=== PATIENT | female | born 1980 | race Caucasian/White ===

== ENCOUNTER 2022-11-04 11:58 | Outpatient (CLI) | payer MEDICAID, SELFPAY ==
[2022-11-04 16:08] LABS: Chloride* 115 mmol/L (96-114)
[2022-11-04 16:09] LABS: Sodium* 142 mmol/L (135-149)
[2022-11-04 16:11] LABS: Cholesterol* 250 mg/dL (90-199); Creatinine* 1.6 mg/dL (0.5-1.5); Estimated Glomerular Filt Rate 42 ml/min
[2022-11-04 16:12] LABS: Alanine Aminotransferase* 20 U/L (4-35); Blood Urea Nitrogen* 18 mg/dL (5-24); Calcium* 9.2 mg/dL (8.4-10.6); Carbon Dioxide* 17 mmol/L (20-32); Glucose* 97 mg/dL (60-115); HDL Cholesterol* 65 mg/dL (>=50); LDL Cholesterol Calculated 156 mg/dL (<100); Triglycerides* 145 mg/dL (40-149)
== END 2022-11-04 11:59 | disposition home or self-care (01) ==
PROVIDERS: PCP Family Medicine; Visit Provider Family Medicine
DX: I10 Essential (primary) hypertension (principal); E55.9 Vitamin D deficiency, unspecified
CPT/HCPCS: 80048; 80061; 84460

== ENCOUNTER 2023-07-20 12:42 | Outpatient (CLI) | payer MEDICAID, SELFPAY | END 2023-07-20 12:43 | disposition home or self-care (01) | LOC: AMB 07-23 10:17 | PROVIDERS: PCP Family Medicine; Visit Provider Family Medicine | DX: M54.50 Low back pain, unspecified (principal) | CPT/HCPCS: A0425; A0427 ==

== ENCOUNTER 2023-07-20 13:09 | Emergency (ER) | payer MEDICAID, SELFPAY ==
[2023-07-20 13:13] VITALS: BP 144/101; PULSE 65; RESP 18; TEMP 36.2; O2SAT 98; BMI 37.4
[2023-07-20 13:15] VITALS: BP 159/92; PULSE 82; RESP 16; O2SAT 98
[2023-07-20 13:30] VITALS: BP 137/86; PULSE 58; RESP 16; O2SAT 98
[2023-07-20] MEDS: KETOROLAC 15 MG/ML inj IVP (14:03)
[2023-07-20] MEDS: MORPHINE 4 MG/ML INJ IVP (14:03)
[2023-07-20 14:30] VITALS: BP 149/81; PULSE 61; RESP 16; O2SAT 98
--- NOTE | 2023-07-20 15:11 | CRLHL7_ITS ---
For Patients: As a result of the Century Cures Act, medical imaging exams and procedure reports are released immediately into your electronic medical record. You may view this report before your referring provider. If you have questions, please contact your health care provider. INDICATION: Low back pain. Left saddle anesthesia. TECHNIQUE : Lumbar spine MRI without contrast. The following sequences were obtained: Sagittal T1, T2 weighted and STIR sequences. Axial T1 and T2 weighted sequences. COMPARISON: Lumbar spine MRI from 08/28/2014. FINDINGS : Five lumbar type vertebral bodies, with the last fully formed disc space designated as L5-S1. Normal lumbar lordotic curve. No recent compression fracture or marrow replacing process. Lower cord/conus signal is normal. The conus terminates at a normal location. No intradural lesion. Polycystic kidneys. Discs/Endplates: At L5-S1, disc dehydration. Remaining discs exhibit normal height and hydration signal. Findings at individual levels as follows: T11-12: No spinal canal or neural foraminal stenosis. T12-L1: No spinal canal or neural foraminal stenosis. L1-2: No spinal canal or neural foraminal stenosis. L2-3: No spinal canal or neural foraminal stenosis. L3-4: No spinal canal or neural foraminal stenosis. L4-5: Bilateral facet arthrosis. No spinal canal or neural foraminal stenosis. L5-S1: 5 millimeter left subarticular disc protrusion minimally contacts the traversing left S1 nerve root. No spinal canal or neural foraminal stenosis. Imaged SI joints: Within normal limits. Imaged sacrum: Within normal limits. IMPRESSION: 1. Shallow left subarticular protrusion minimally contacts the traversing left S1 nerve root. Slightly decreased in size compared to 2013. 2. No spinal canal/neural foraminal stenosis or neural impingement elsewhere. 3. Facet arthrosis at L4-5 bilaterally. Slightly progressed since 2013. Dictated by Romero Brothers MD @ 07/20/2023 6:02:56 PM (Electronically Signed)
[2023-07-20] MEDS: KETOROLAC 10 MG TABLET PO (15:26)
--- NOTE | 2023-07-20 16:17 | ED.GENADULT ---
HPI - General Adult General Date Seen: 07/20/23 Chief complaint: Back Injury/Pain Stated complaint: Back pain Time Seen by Provider: 07/20/23 13:22 Source: patient Mode of arrival: EMS Limitations: no limitations History of Present Illness HPI narrative: Patient is a 42-year-old female presenting to the emergency department for low back pain. She has history of chronic pain and has a pain contract. She says she took multiple oxycodone today after she hurt her back. 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 She does the pain is mostly on the left side and radiates down to her left gluteal region. She still admits to some mild numbness to the left gluteal region. Patient states that she has history of sciatica but the pain has not been this bad before. Ago oxycodone has not helped and she took it about an hour prior to arrival. States at baseline she needs to walk with a walker to to her chronic pain. She urinated prior to arrival and states she felt like she empties her bladder. Denies incontinence of bladder or bowels. Denies fevers, chills, chest pain, shortness of breath. Related Data Previous Rx's Medication Instructions Recorded albuterol sulfate 90 mcg/actuation 2 puff inhalation Q4H PRN 07/01/22 aerosol inhaler (ProAir HFA) shortness of breath or wheezing #8.5 grams cholecalciferol (vitamin D3) 25 25 mcg PO QDAY #90 caps 07/01/22 mcg (1,000 unit) capsule ondansetron 4 mg disintegrating 4 mg PO Q6-8H PRN nausea and 07/01/22 tablet vomiting #30 tabs polyethylene glycol 3350 17 gram 17 g PO QDAY #100 ea 07/01/22 oral powder packet (Miralax) incontinence pad, liner, disp #48 ea 07/15/22 (Poise Pantiliners pads) duloxetine 30 mg capsule,delayed 30 mg PO QDAY #14 caps 11/04/22 release (Cymbalta) duloxetine 60 mg capsule,delayed 60 mg PO QDAY #30 caps 11/04/22 release (Cymbalta) acetazolamide 250 mg tablet 500 mg (2 x 250 mg) PO BID #180 05/22/23 tabs clotrimazole-betamethasone 1 1 applic topical BID #45 grams 03/21/23 %-0.05 % topical cream incontinence pad, liner, disp #132 ea 03/21/23 (Prevail Pads) miconazole nitrate 2 % topical 1 spray topical BID #133 grams 03/21/23 spray powder (Lotrimin AF Powder) diaper,brief,adult,disposable #64 ea 06/16/23 (Prevail Adjustable Underwear Large) hydroxyzine HCl 50 mg tablet 25 - 50 mg (0.5 - 1 x 50 mg) PO 06/16/23 TID PRN anxiety #60 tabs oxycodone 10 mg tablet 10 mg PO QID PRN pain #120 tabs 07/10/23 estradiol 1 mg tablet 1 mg PO QDAY #90 tabs 07/18/23 lisinopril 20 mg tablet 20 mg PO QDAY #90 tabs 07/18/23 propranolol 80 mg capsule,24 80 mg PO QDAY #30 caps 07/18/23 hr,extended release Allergies Allergy/AdvReac Type Severity Reaction Status Date / Time ibuprofen Allergy Mild Verified 03/21/23 11:16 Review of Systems Narrative: Negative unless stated in the [facility] Medical History Essential tremor ?G25.0 - Essential tremor (ICD-10) Candidal intertrigo ?B37.2 - Candidiasis of skin and nail (ICD-10) Mild intermittent asthma ?J45.20 - Mild intermittent asthma, uncomplicated (ICD-10) Chronic constipation ?K59.09 - Other constipation (ICD-10) Vitamin D deficiency ?E55.9 - Vitamin D deficiency, unspecified (ICD-10) Polycystic kidney, unspecified ?Q61.3 - Polycystic kidney, unspecified (ICD-10) Essential (primary) hypertension ?I10 - Essential (primary) hypertension (ICD-10) Major depressive disorder, single episode, unspecified ?F32.9 - Major depressive disorder, single episode, unspecified (ICD-10) Anxiety disorder, unspecified ?F41.9 - Anxiety disorder, unspecified (ICD-10) Crohn disease ?K50.90 - Crohn's disease, unspecified, without complications (ICD-10) IIH (idiopathic intracranial hypertension) ?G93.2 - Benign intracranial hypertension (ICD-10) Solitary pulmonary nodule ?R91.1 - Solitary pulmonary nodule (ICD-10) Endometriosis, unspecified ?N80.9 - Endometriosis, unspecified (ICD-10) Chronic pain syndrome ?G89.4 - Chronic pain syndrome (ICD-10) Surgical History History of hysterectomy ?Z90.710 - Acquired absence of both cervix and uterus (ICD-10) Family History Father Kidney disease Stroke Heart disease Social History Smoking Status: Current every day smoker Little interest or pleasure in doing things: nearly every day Feeling down, depressed, or hopeless: nearly every day Exam Narrative: Exam Narrative: Const: Well-nourished, Well-developed, in moderate distress Eyes: PERRL, no conjunctival injection, and symmetrical lids HENT: Atraumatic external nose and ears. Moist mucous membranes. Neck: Symmetric, trachea midline, No thyromegaly. CVS: RRR, No murmurs or gallops. Peripheral pulses 2+ and equal in all extremities RESP: Unlabored respiratory effort. Clear to auscultation bilaterally. GI: Nontender/Nondistended, No rebound or guarding. No CVA tenderness MSK:Extremities w/o deformity, Normal Active ROM, tenderness palpation left paraspinal muscles and that is when the region of L3-L4. Positive straight leg test bilaterally Skin: Warm, Dry. No rashes or lesions. Neuro: Normal Muscle tone, No focal neurological deficits. Psych: Awake, Alert, & Oriented x3. Appropriate mood and affect. Const: Vital Signs, click to edit/add: Vital Signs - 24 hr 07/20/23 13:13 07/20/23 13:15 07/20/23 13:30 Temperature 97.2 F L Pulse Rate [Right Pulse Oximeter] 65 82 58 L Respiratory Rate 18 16 16 Blood Pressure [Ri ght Upper Arm] 144/101 H 159/92 H 137/86 Pulse Oximetry 98 98 98 Oxygen Delivery Me thod Room Air Room Air Room Air 07/20/23 14:30 Temperature Pulse Rate [Right Pulse Oximeter] 61 Respiratory Rate 16 Blood Pressure [Ri ght Upper Arm] 149/81 H Pulse Oximetry 98 Oxygen Delivery Me thod Room Air Course Vital Signs Vital signs: Initial Vital Signs Temperature 97.2 F L 07/20/23 13:13 Temperature Source Temporal Artery Scan 07/20/23 13:13 Pulse Rate 65 07/20/23 13:13 Respiratory Rate 18 07/20/23 13:13 Blood Pressure 144/101 H 07/20/23 13:13 Blood Pressure Mean 115 H 07/20/23 13:13 Blood Pressure Position Sitting 07/20/23 13:13 Pulse Oximetry 98 07/20/23 13:13 Oxygen Delivery Method Room Air 07/20/23 13:13 Vital Signs Temperature 97.2 F L 07/20/23 13:13 Pulse Rate 65 07/20/23 13:13 Respiratory Rate 18 07/20/23 13:13 Blood Pressure 144/101 H 07/20/23 13:13 Pulse Oximetry 98 07/20/23 13:13 Oxygen Delivery Method Room Air 07/20/23 13:13 Temperature 97.2 F L 07/20/23 13:13 Pulse Rate 61 07/20/23 14:30 Respiratory Rate 16 07/20/23 14:30 Blood Pressure 149/81 H 07/20/23 14:30 Pulse Oximetry 98 07/20/23 14:30 Oxygen Delivery Method Room Air 07/20/23 14:[address] [facility] Narrative Medical decision making narrative: Patient is a 42-year-old female presenting to emergency department for low back pain. She says the pain started suddenly after she bent over. She states she heard a pop in her back. She has been unable to handle the pain at home even after taking dose of her home oxycodone. Patient states she needs her pain controlled in every cannot treat her she needs to be transferred somewhere that can. She is on a pain contract but she does not look to be in a large amount of pain started give her a dose of morphine and Toradol. She states this did not help her symptoms at all and she still in severe pain in me needs something more for it. I then gave her dose of oral Toradol. Considering how much pain as she claims to be in we are able to get an MRI of her lumbar spine. Before the MRI was done I spoke to the patient again and she states she is not being treated appropriately and she needs her pain treated. I informed able to medicine your be gave her and then she has told me that she did not come in asking for the pain medicine even though she specifically said she needed her pain treated. She will be given another dose of oxycodone 10 mg consistent with her home dose as she is due for another dose. The MRI of her lumbar spine returned showing mild arthrosis of L4-L5 and a mild protrusion of the disc at L5-L1. Her pain is more in the upper back and is not consistent with the symptoms. Rest of the lumbar spine is within normal limits. A cannot specifically say was causing the patient's pain but is clearly not guided plana and the rest of her symptoms are not consistent with the findings and the MRI. She does have paraspinal tenderness most likely she pulled a muscle considering she is very tender to palpation in the paraspinal region. Nursing staff is noted she has transferred independently from the bed to the commode and to the MRI scanner without needing any help. She does have a lift chair at home. Patient was again asking why she is not being transferred to another hospital that would take care of her. I explained to her that her imaging findings show nothing that is transferrable. Considering the pain radiates down her leg and is tender to palpation a kidney stone is unlikely. Also the pain started as soon as she bent over which makes it even more likely it is musculoskeletal in origin. She has hypertension but otherwise no other risk factors for a AAA and her vitals are stable. I do not believe a CT scan is necessary at this time. Patient will be discharged home. Imaging Data MRI lumbar spine: Radiologist's impression: INDICATION: Low back pain. Left saddle anesthesia. TECHNIQUE : Lumbar spine MRI without contrast. The following sequences were obtained: Sagittal T1, T2 weighted and STIR sequences. Axial T1 and T2 weighted sequences. COMPARISON: Lumbar spine MRI from 08/28/2014. FINDINGS : Five lumbar type vertebral bodies, with the last fully formed disc space designated as L5-S1. Normal lumbar lordotic curve. No recent compression fracture or marrow replacing process. Lower cord/conus signal is normal. The conus terminates at a normal location. No intradural lesion. Polycystic kidneys. Discs/Endplates: At L5-S1, disc dehydration. Remaining discs exhibit normal height and hydration signal. Findings at individual levels as follows: T11-12: No spinal canal or neural foraminal stenosis. T12-L1: No spinal canal or neural foraminal stenosis. L1-2: No spinal canal or neural foraminal stenosis. L2-3: No spinal canal or neural foraminal stenosis. L3-4: No spinal canal or neural foraminal stenosis. L4-5: Bilateral facet arthrosis. No spinal canal or neural foraminal stenosis. L5-S1: 5 millimeter left subarticular disc protrusion minimally contacts the traversing left S1 nerve root. No spinal canal or neural foraminal stenosis. Imaged SI joints: Within normal limits. Imaged sacrum: Within normal limits. IMPRESSION: 1. Shallow left subarticular protrusion minimally contacts the traversing left S1 nerve root. Slightly decreased in size compared to 2014. 2. No spinal canal/neural foraminal stenosis or neural impingement elsewhere. 3. Facet arthrosis at L4-5 bilaterally. Slightly progressed since 2013. Dictated by Romero Brothers MD @ 07/20/2023 6:02:56 PM Discharge Plan Discharge Clinical Impression: Back pain Qualifiers: Back pain location: low back pain Chronicity: acute Back pain laterality: left Sciatica presence: with sciatica Sciatica laterality: sciatica of left side Qualified Code(s): M54.42 - Lumbago with sciatica, left side Patient Disposition: Home, Self-Care Condition: Stable Instructions: Back Pain (ED) Additional Instructions: Follow-up with the primary care provider. Return for new or worsening symptoms Activity Level: No Restrictions Discharge Diet: Regular Prescriptions: No Action cholecalciferol (vitamin D3) 25 mcg (1,000 unit) capsule 25 mcg PO QDAY Qty: 90 3RF polyethylene glycol 3350 [Miralax] 17 gram powder in packet 17 g PO QDAY Qty: 100 3RF albuterol sulfate [ProAir HFA] 90 mcg/actuation HFA aerosol inhaler 2 puff inhalation Q4H PRN (Reason: shortness of breath or wheezing) Qty: 8.5 5RF ondansetron 4 mg tablet,disintegrating 4 mg PO Q6-8H PRN (Reason: nausea and vomiting) Qty: 30 5RF (DME) Prevail Pads Pad See Rx Instructions .Route Qty: 132 5RF Rx Instructions: As directed clotrimazole-betamethasone 1-0.05 % cream 1 applic topical BID Qty: 45 1RF miconazole nitrate [Lotrimin AF Powder] 2 % aerosol powder 1 spray topical BID Qty: 133 5RF duloxetine [Cymbalta] 30 mg capsule,delayed release(DR/EC) 30 mg PO QDAY Qty: 14 0RF duloxetine [Cymbalta] 60 mg capsule,delayed release(DR/EC) 60 mg PO QDAY Qty: 30 0RF (DME) Poise Pantiliners Pad See Rx Instructions .Route Qty: 48 1RF Rx Instructions: As directed acetazolamide 250 mg tablet 500 mg PO BID Qty: 180 3RF hydroxyzine HCl 50 mg tablet 25 - 50 mg PO TID PRN (Reason: anxiety) Qty: 60 1RF (DME) Prevail Adjust Underwear Large Misc See Rx Instructions .Route Qty: 64 5RF Rx Instructions: As directed oxycodone 10 mg tablet 10 mg PO QID MDD 4 PRN (Reason: pain) Qty: 120 0RF lisinopril 20 mg tablet 20 mg PO QDAY Qty: 90 0RF propranolol 80 mg capsule,extended release 24hr 80 mg PO QDAY Qty: 30 2RF estradiol 1 mg tablet 1 mg PO QDAY Qty: 90 0RF Follow Up/Referrals: Calixto Han MD [Primary Care Provider] - Stand Alone Forms: [facility] Info Instructions
[2023-07-20] MEDS: OXYCODONE 5 MG TABLET 10 MG PO (18:00)
--- NOTE | 2023-07-20 18:11 | ED.NURSE ---
Pt upset over care in the ER. States to this nurse that she did not receive the pain medication that she would have liked to have received.
--- NOTE | 2023-07-20 18:12 | ED.NURSE ---
Pt given patient advocate number to contact them on Monday. Pt appreciative of patient advocate number.
--- NOTE | 2023-07-20 18:29 | ED.NURSE ---
Upon discharge, pt wanted everyone's names down on a piece of paper that took care of her today. She states she was not treated humanely and made to feel like a drug seeker. Pt requesting a copy of her MRI results on a disk, copy being made by Imaging and will be given to pt before she leaves.
--- NOTE | 2023-07-20 18:40 | ED.NURSE ---
Pt was upset with nursing staff and demanded to know why there was a camera in the room. It was explained in detail that camera was only for behavorial health patients and that the camera has not been turned on in her room and nothing has been recorded. Pt okay with explanation and has nothing more for this nurse at this time. Pt calling for a ride home.
--- NOTE | 2023-07-20 18:43 | ED.NURSE ---
Pt has called a friend and has a ride home. Pt has requested that she be helped into a wheelchair and given a ride in the wheelchair, out to the lobby to wait for her ride. Pt helped into chair and taken outside in wheelchair.
== END 2023-07-20 18:48 | disposition home or self-care (01) ==
PROVIDERS: Emergency Provider Student in an Organized Health Care Education/Training Program; PCP Family Medicine
DX: M54.42 Lumbago with sciatica, left side (principal)
CPT/HCPCS: 72148; 96374; 96375; 99283; 99284; A9270; J1885; J2270

== ENCOUNTER 2023-11-07 13:52 | Outpatient (CLI) | payer MEDICAID, SELFPAY | END 2023-11-07 13:53 | disposition home or self-care (01) | PROVIDERS: PCP Family Medicine; Visit Provider Family Medicine | DX: I10 Essential (primary) hypertension (principal); Z13.220 Encounter for screening for lipoid disorders | CPT/HCPCS: 80048; 80061 ==

== ENCOUNTER 2024-01-25 17:39 | Outpatient (REF) | payer MEDICAID, SELFPAY ==
--- OUTSIDE RECORDS SUMMARY | 2024-01-25 17:41 | XMS_ITS | Encounter Summary ---
Author Name Unknown Organization [facility] Address [address] [place] [phone] Phone Care Team Providers Care Screener And Blender Name Role Phone Calixto Han MD Primary Care Provider Unavail able Encounter Details Date Type Department Care Team (Late st Contact Info) Description 01/01/2024 [facility] [address] [place] [address] Taylor Torres RN Social History Tobacco Use Types Packs/Day Years Used Date Smoking Tobacco: Every Day Cigarettes Smokeless Tobacco: Never Alcohol Use Standard Drinks/Week Comments Not Currently 0 (1 standard drink = 0.6 oz pur e alcohol) Sex and Gender Information Value Date Recorded Sex Assigned at Not on file Gender Identity Not on file Sexual Orientation Not on file documented as of this encounter Miscellaneous Notes * Telephone Encounter - Taylor Torres RN - 01/01/2024 2:45 PM CDT Left message for pt to call back to review results and recommendations. * Telephone Encounter - Taylor Torres RN - 01/01/2024 2:45 PM CDT ----- Message from Mk Mccracken MD sent at 12/27/2023 2:50 PM CDT ----- 1. Cr is stable ~1.7. 2. She is fe def, but not anemic. Suggest IV Feraheme 510 x 2 or Venofer 300 x 3, depending on insurance. 3. CO2 is low and K is ok. Repeat BMP in 2 wks. documented in this encounter Plan of Treatment Upcoming Encounters Date Type Department Care Team (Late st Contact Info) Description 04/04/2024 10:30 AM MDT Office Visit [facility] [address] [facility] [address] [place], [place] [id number] Mk Mccracken MD [address] [facility] [address] [place], [place] [id number] documented as of this encounter Visit Diagnoses Not on filedocumented in this encounter Care Teams Screener And Blender Relationship Specialty Start Date End Date Calixto Han MD PCP - General 05/08/20 documented as of this encounter
--- OUTSIDE RECORDS SUMMARY | 2024-01-25 17:41 | XMS_ITS | Clinical Summary ---
Author Name Unknown Organization [facility] Address [address] [place] [phone] Phone Care Team Providers Care Riffler Tender Name Role Phone Calixto Han MD Primary Care Provider Unavail able Allergies Active Allergy Reactions Criticality Noted Date Comments Ibuprofen Other (see comments) High 05/08/2020 Kidney disease Medications Medication Sig Dispensed Refills Start Date End Date Status acetaZOLAMIDE (DIAMOX) 250 MG tablet Take 500 mg by mouth 2 (two) times a day Active estradiol (ESTRACE) 1 MG tablet Take 1 mg by mouth 1 (one) time each day Active UNABLE TO FIND Med Name: Medical cannabis Active ondansetron (ZOFRAN) 4 MG tablet Take by mouth every 6 (six) hours if needed for nausea or vomiting Active oxyCODONE (ROXICODONE) 10 MG immediate release tablet Take 10 mg by mouth in the morning and 10 mg at noon and 10 mg in the evening and 10 mg before bedtime. Active hydrOXYzine (ATARAX) 50 MG tablet Take 25-50 mg by mouth every 8 (eight) hours if needed for anxiety 11/28/2023 Active cholecalciferol (VITAMIN D-3) 25 MCG (1000 UT) tablet Take 1,000 Units by mouth 1 (one) time each day 11/24/2023 Active polyethylene glycol (GLYCOLAX) 17 GM/SCOOP powder Take 17 g by mouth 1 (one) time each day 11/28/2023 Active propranolol LA (INDERAL LA) 80 MG 24 hr capsule Take 80 mg by mouth 1 (one) time each day 11/28/2023 Active lisinopril (PRINIVIL) 20 MG tablet Take 1 tablet (20 mg total) by mouth in the morning and 1 tablet (20 mg total) in the evening. 180 tablet 3 01/23/2024 01/22/2025 Active lisinopril (PRINIVIL,ZESTRIL ) 20 MG tablet Take 20 mg by mouth 1 (one) time each day 01/19/2024 Discontinued (Reorder) lisinopril (PRINIVIL) 20 MG tablet Take 1 tablet (20 mg total) by mouth in the morning and 1 tablet (20 mg total) in the evening. 180 tablet 3 01/23/2024 01/23/2024 Discontinued (Reorder) Active Problems Problem Noted Date Diagnosed Date Crohn's disease of both smal l and large intestine with complication 12/14/2023 Vitamin D deficiency 12/14/2023 Chronic kidney disease stage 3B 05/12/2020 Autosomal dominant polycystic kidney disease Essential hypertension 05/12/2020 Benign intracranial hypertension 05/12/2020 Anemia in chronic kidney disease 05/12/2020 Calculus of kidney and ureter 05/12/2020 Resolved Problems Problem Noted Date Diagnosed Date Resolved Date Crohn's disease 05/12/2020 12/14/2023 Encounters Date Type Department Care Team Description 01/19/2024 Refill [facility] [address] [place] [address] Dianna Lara, KHADIJAH 01/01/2024 Telephone [facility] [address] [place] [address] Taylor Torres, KHADIJAH 12/14/2023 Orders Only [facility] [address] [place] [address] Mk Mccracken MD from Last 3 Months Immunizations Name Administration Dates Next Due Influenza, Injectable, Quadr ivalent, Preservative Free 07/01/2013,07/06/2012,09/17/2010 Family History Medical History Relation Comments Autism spectrum disorder Daughter 1 Depression Daughter 1 Factor V deficiency Daughter 1 h/o PE Polycystic ovary syndrome Daughter 1 Autism spectrum disorder Daughter 2 per mot her Polycystic ovary syndrome Daughter 2 Arthritis Father COPD Father Depression Father Diabetes Father Drug abuse Father Early Father Hearing loss Father Heart disease Father Hypertension Father Kidney disease Father Kidney stone Father Polycystic kidney disease Father ESKD Stroke Father Vision loss Father Alcohol abuse Mother Arthritis Mother Hypertension Mother Alcohol abuse Sister 1 Depression Sister 1 Hypertension Sister 1 Multiple sclerosis Sister 1 Polycystic kidney disease, adult type Sister 1 Malignant neoplasm of brain Sister 2 Polycystic kidney disease Sister 2 ADD / ADHD Son Hearing loss Son Relation Status Comments Daughter 1 Alive Daughter 2 Alive Father Mother Alive Sister 1 Alive Sister 2 Alive Son Alive Social History Tobacco Use Types Packs/Day Years Used Date Smoking Tobacco: Every Day Cigarettes Smokeless Tobacco: Never Tobacco Cessation:Ready to Q uit: No; Counseling Given: Yes Alcohol Use Standard Drinks/Week Comments Not Currently 0 (1 standard drink = 0.6 oz pur e alcohol) Sex and Gender Information Value Date Recorded Sex Assigned at Not on file Gender Identity Not on file Sexual Orientation Not on file Last Filed Vital Signs Vital Sign Reading Time Taken Comments Blood Pressure 156/93 12/14/2023 9:13 AM OPTICAL SYSTEMS ENGINEER Pulse 57 12/14/2023 9:13 AM OPTICAL SYSTEMS ENGINEER Temperature 36.9 ??C (98.4 ??F) 12/14/2023 9:13 AM CS T Respiratory Rate - - Oxygen Saturation - - Inhaled Oxygen Concentration - - Weight 100 kg (221 lb 6.4 oz) 12/14/2023 9:13 AM OPTICAL SYSTEMS ENGINEER Height 167.6 cm (5' 6) 12/14/2023 9:13 AM OPTICAL SYSTEMS ENGINEER Body Mass Index 35.73 12/14/2023 9:13 AM OPTICAL SYSTEMS ENGINEER Plan of Treatment Upcoming Encounters Date Type Department Care Team (Late st Contact Info) Description 04/04/2024 10:30 AM MDT Office Visit [facility] [address] [facility] [address] [place], [place] [id number] Mk Mccracken MD [address] [facility] [address] [place], [place] [id number] Health Maintenance Due Date Last Done Comments Pneumococcal PPSV23 Highest Risk Adult (1 of 3 - PCV13) 2001 Influenza Vaccine (Season Ended) 2024 07/01/2013, 07/06/2012, 09/17/2010 Procedures Procedure Name Priority Date/Time Associated Diagnosis Comments TOTAL PROTEIN W/ CREATININE, URINE, RANDOM Routine 12/14/2023 9:49 AM OPTICAL SYSTEMS ENGINEER VITAMIN D, 25-HYDROXY, SERUM Routine 12/14/2023 9:49 AM OPTICAL SYSTEMS ENGINEER PTH INTACT W/O CALCIUM, SERUM Routine 12/14/2023 9:49 AM OPTICAL SYSTEMS ENGINEER FERRITIN, SERUM Routine 12/14/2023 9:49 AM OPTICAL SYSTEMS ENGINEER CBC (INCLUDES DIFFERENTIAL/PLATEL ETS) Routine 12/14/2023 9:49 AM OPTICAL SYSTEMS ENGINEER URINALYSIS, COMPLETE Routine 12/14/2023 9:49 AM OPTICAL SYSTEMS ENGINEER RENAL FUNCTION PANEL (RFP) Routine 12/14/2023 9:49 AM OPTICAL SYSTEMS ENGINEER IRON AND TIBC, SERUM Routine 12/14/2023 9:49 AM OPTICAL SYSTEMS ENGINEER URIC ACID, SERUM Routine 12/14/2023 9:49 AM OPTICAL SYSTEMS ENGINEER from Last 3 Months Results * Total Protein w/ Creatinine, Urine, Random (12/14/2023 9:49 AM OPTICAL SYSTEMS ENGINEER) Creatinine, Urine 56 20 - 275 mg/dL [facility]) Protein/Creatin ine, Urine 107 24 - 184 mg/g creat [facility] Protein/Creatin ine, Urine 0.107 0.024 - 0.184 mg/mg creat [facility] Protein, Urine 6 5 - 24 mg/dL [facility]) 12/14/2023 9:49 AM OPTICAL SYSTEMS ENGINEER 12/14/2023 9:50 AM OPTICAL SYSTEMS ENGINEER Narrative Resulting Agency Comment Performing Organization Information: ?Site ID: ?Name: [facility] ?Address: [address] [place] [phone] ?Director: Harshad Frias Mk Mccracken MD LAB URINE ORDERABLES [facility] * (ABNORMAL) Vitamin D, 25-Hydroxy, Serum (12/14/2023 9:49 AM OPTICAL SYSTEMS ENGINEER) Pathologist [facility] Calcidiol, Serum/Plasma 27(L) 30 - 100 ng/mL [facility]) Comment: Vitamin D Status ? 25-OH Vitamin D: Deficiency: ?<20 ng/mL Insufficiency: ? 20 - 29 ng/mL Optimal: ? > or = 30 ng/mL For 25-OH Vitamin D testing on patients on D2-supplementation and patients for whom quantitation of D2 and D3 fractions is required, the QuestAssureD(TM) 25-OH VIT D, (D2,D3), LC/MS/MS is recommended: order code 78492 (patients >2yrs). See Note 1 Note 1 For additional information, please refer to http://education.[employer]/faq/QOE031 (This link is being provided for informational/ educational purposes only.) 12/14/2023 9:49 AM OPTICAL SYSTEMS ENGINEER 12/14/2023 9:50 AM OPTICAL SYSTEMS ENGINEER Narrative Resulting Agency Comment Performing Organization Information: ?Site ID: ?Name: [facility]ortney Granado ?Address: [address] [place] [phone] ?Director: Harshad Frias Mk Mccracken MD LAB BLOOD ORDERABLES [facility] ([facility] * (ABNORMAL) CBC (includes Differential/Platelets) (12/14/2023 9:49 AM OPTICAL SYSTEMS ENGINEER) [facility] Leukocytes, Blood 7.5 3.8 - 10.8 Thousand/u L [facility]) Erythrocytes (RBC) 4.67 3.80 - 5.10 Million/uL [facility]) Hemoglobin (HGB) 13.0 11.7 - 15.5 g/dL [facility]) Hematocrit (HCT) 41.1 35.0 - 45.0 % [facility]) MCV 88.0 80.0 - 100.0 fL [facility]) MCH 27.8 27.0 - 33.0 pg [facility]) MCHC 31.6(L) 32.0 - 36.0 g/dL [facility]) Erythrocyte Distribution Width (RDW) 12.5 11.0 - 15.0 % [facility] Platelets, Blood 200 140 - 400 Thousand/u L [facility]) Platelet mean volume, Blood 12.5 7.5 - 12.5 fL [facility]) Neutrophils, Blood 4,073 1,500 - 7,800 cells/uL [facility]) Lymphocytes, Blood 2,685 850 - 3,900 cells/uL [facility]) Monocytes, Blood 413 200 - 950 cells/uL [facility]) Eosinophils, Blood 293 15 - 500 cells/uL [facility]) Basophils, Blood 38 0 - 200 cells/uL [facility]) Neutrophils/100 leukocytes, Blood 54.3 % [facility]) Lymphocytes/100 leukocytes, Blood 35.8 % [facility]) Monocytes/100 leukocytes, Blood 5.5 % [facility]) Eosinophils/100 leukocytes, Blood 3.9 % [facility]) Basophils/100 leukocytes, Blood 0.5 % [facility]) 12/14/2023 9:49 AM OPTICAL SYSTEMS ENGINEER 12/14/2023 9:50 AM OPTICAL SYSTEMS ENGINEER Narrative Resulting Agency Comment Performing Organization Information: ?Site ID: ?Name: [facility] ?Address: [address] [place] [address] [place] [address] ?Director: Harshad Frias Mk Mccracken MD LAB BLOOD ORDERABLES [facility] * Urinalysis, Complete (12/14/2023 9:49 AM OPTICAL SYSTEMS ENGINEER) Color of Urine YELLOW YELLOW [facility]) Appearance of Urine CLEAR CLEAR [facility]) Specific gravity of Urine 1.012 1.001 - 1.035 [facility]) pH of Urine 6.0 5.0 - 8.0 [facility]) Glucose, Urine NEGATIVE NEGATIVE [facility]) Bilirubin, total, Urine NEGATIVE NEGATIVE [facility]) Ketones, Urine NEGATIVE NEGATIVE [facility]) Hemoglobin, Urine NEGATIVE NEGATIVE [facility]) Protein, Urine NEGATIVE NEGATIVE [facility]) Nitrite, Urine NEGATIVE NEGATIVE [facility]) Leukocyte esterase, Urine NEGATIVE NEGATIVE [facility]) Leukocytes, Urine sediment NONE SEEN < OR = 5 /HPF [facility]) Erythrocytes, Urine sediment NONE SEEN < OR = 2 /HPF [facility]) Epithelial cells, squamous, Urine sediment NONE SEEN < OR = 5 /HPF [facility]) Bacteria, Urine sediment NONE SEEN NONE SEEN /HPF [facility]) Hyaline casts, Urine sediment NONE SEEN NONE SEEN /LPF [facility]) Service comment [facility] Comment: This urine was analyzed for the presence of WBC, RBC, bacteria, casts, and other formed elements. Only those elements seen were reported. 12/14/2023 9:49 AM OPTICAL SYSTEMS ENGINEER 12/14/2023 9:50 AM OPTICAL SYSTEMS ENGINEER Narrative Resulting Agency Comment Performing Organization Information: ?Site ID: ?Name: [facility] ?Address: [address] [place] [phone] ?Director: Harshad Frias Mk Mccracken MD LAB URINE ORDERABLES [facility] * (ABNORMAL) Renal Function Panel (RFP) (12/14/2023 9:49 AM OPTICAL SYSTEMS ENGINEER) Glucose, Serum/Plasma 85 65 - 99 mg/dL [facility] Comment: ? Fasting reference interval Urea nitrogen, Serum/Plasma (BUN) 26(H) 7 - 25 mg/dL [facility]) Creatinine, Serum/Plasma 1.69(H) 0.50 - 0.99 mg/dL [facility]) Estimated Glomerular Filtration Rate (eGFR) 39(L) > OR = 60 mL/min/1.7 3m2 [facility]) Urea nitrogen/Creati nine, Serum/Plasma 15 6 - 22 (calc) [facility] Sodium, Serum/Plasma 141 135 - 146 mmol/L [facility]) Potassium, Serum/Plasma 4.4 3.5 - 5.3 mmol/L [facility]) Chloride, Serum/Plasma 113(H) 98 - 110 mmol/L [facility]) Carbon dioxide CO2), total, Serum/Plasma 18(L) 20 - 32 mmol/L [facility]) Calcium, Serum/Plasma 9.3 8.6 - 10.2 mg/dL [facility]) Phosphate, Serum/Plasma 4.8(H) 2.5 - 4.5 mg/dL [facility]) Albumin, Serum/Plasma 4.5 3.6 - 5.1 g/dL [facility]) 12/14/2023 9:49 AM OPTICAL SYSTEMS ENGINEER 12/14/2023 9:50 AM OPTICAL SYSTEMS ENGINEER Narrative Resulting Agency Comment Performing Organization Information: ?Site ID: [id number] ?Name: [facility] ?Address: [address] [place] [address] [place] [address] ?Director: Harshad Frias Mk Mccracken MD LAB BLOOD ORDERABLES [facility]) * Uric Acid, Serum (12/14/2023 9:49 AM OPTICAL SYSTEMS ENGINEER) Urate, Serum/Plasma 5.1 2.5 - 7.0 mg/dL [facility]) Comment: Therapeutic target for gout patients: <6.0 mg/dL ?? 12/14/2023 9:49 AM OPTICAL SYSTEMS ENGINEER 12/14/2023 9:50 AM OPTICAL SYSTEMS ENGINEER Narrative Resulting Agency Comment Performing Organization Information: ?Site ID: [id number] ?Name: [facility] ?Address: [address] [place], [place] [address] [address] ?Director: Harshad Frias Mk Mccracken MD LAB BLOOD ORDERABLES Performing Organization Address City/[facility]/ZIP Co de Phone Number [facility]) * Ferritin, Serum (12/14/2023 9:49 AM OPTICAL SYSTEMS ENGINEER) Ferritin, Serum/Plasma 46 16 - 232 ng/mL [facility]) 12/14/2023 9:49 AM OPTICAL SYSTEMS ENGINEER 12/14/2023 9:50 AM OPTICAL SYSTEMS ENGINEER Narrative Resulting Agency Comment Performing Organization Information: ?Site ID: [id number] ?Name: [facility] ?Address: [address] [place] [address] [place] [address] ?Director: Harshad Frias Mk Mccracken MD LAB BLOOD ORDERABLES Performing Organization Address City/[facility]/ZIP Co de Phone Number [facility]) * (ABNORMAL) Iron and TIBC, Serum (12/14/2023 9:49 AM OPTICAL SYSTEMS ENGINEER) Iron, Serum/Plasma 45 40 - 190 mcg/dL [facility]) Iron binding capacity, Serum/Plasma 409 250 - 450 mcg/dL (calc) [facility]) Iron saturation, Serum/Plasma 11(L) 16 - 45 % (calc) [facility]) 12/14/2023 9:49 AM OPTICAL SYSTEMS ENGINEER 12/14/2023 9:50 AM OPTICAL SYSTEMS ENGINEER Narrative Resulting Agency Comment Performing Organization Information: ?Site ID: [id number] ?Name: [facility] ?Address: [address] [place] [address] ?Director: Harshad Frias Mk Mccracken MD LAB BLOOD ORDERABLES [facility] ([facility]) * PTH Intact w/o Calcium, Serum (12/14/2023 9:49 AM OPTICAL SYSTEMS ENGINEER) PTH, Intact, Serum/Plasma 57 16 - 77 pg/mL [facility] ([facility]) Comment: Interpretive Guide ?Intact PTH ? Calcium ? ------- Normal Parathyroid ?Normal ? Normal Hypoparathyroidism ?Low or Low Normal ?Low Hyperparathyroidism ?? Primary ?Normal or High ? High ?? Secondary ?High ? Normal or Low ?? Tertiary ? High ? High Non-Parathyroid ?? Hypercalcemia ?Low or Low Normal ?High 12/14/2023 9:49 AM OPTICAL SYSTEMS ENGINEER 12/14/2023 9:50 AM OPTICAL SYSTEMS ENGINEER Narrative Resulting Agency Comment Performing Organization Information: ?Site ID: [id number] ?Name: [facility] ?Address: [address] [place] [address] [place] [address] ?Director: Harshad Frias Mk Mccracken MD LAB BLOOD ORDERABLES [facility] ([facility]) from Last 3 Months Care Teams Riffler Tender Relationship Specialty Start Date End Date Calixto Han MD PCP - General 05/08/20
--- OUTSIDE RECORDS SUMMARY | 2024-01-25 17:41 | XMS_ITS | Encounter Summary ---
Author Name Unknown Organization [facility] Address [address] [place] [phone] Phone Care Team Providers Care Stereotyper Apprentice Name Role Phone Calixto Han MD Primary Care Provider Unavail able Reason for Visit * Reason Onset Date Comments Med Refill 01/19/2024 Encounter Details Date Type Department Care Team (Late st Contact Info) Description 01/19/2024 Refill [email or web address] [address] [facility] [address] [place] [address] Cheryl See RN Social History Tobacco Use Types Packs/Day [...] as of this encounter Miscellaneous Notes * Addendum Note - Cheryl See RN - 01/23/2024 12:14 PM CDTAddended by: CHERYL SEE on: 01/23/2024 12:14 PM Modules accepted: Orders T * Telephone Encounter - Cheryl See RN - 01/23/2024 11:57 AM CDT Patient returned call saying that she would like Rx at [facility]. Rx resent. I reviewed lab results and recommendations from Dr. Mccracken after her last visit. She is willing to go ahead with iron infusions at [facility]. Iron results are now older than 30 days and will have to be repeated. She would also like to have her repeat BMP done in [place]. Orders faxed including iron studies. * Telephone Encounter - Cheryl See RN - 01/23/2024 11:26 AM CDT Was able to locate information to [facility] in [place]. Rx sent. I left a message for patient advising Rx has been sent. Advised that Dr. Mccracken made recommendations for her lab results done in December including iron infusion and repeat labs. I asked her to call in to speak to Taylor regarding that if they haven't already discussed. * Telephone Encounter - Cheryl See RN - 01/19/2024 10:02 AM CDT Tanisha called asking for a new prescription for her lisinopril 20 mg BID be sent to [facility]. I left a message for her advising Rx being called in, but was unsure if she had gotten the message regarding lab results, iron infusion and repeat labs. I asked her to call back regarding this. Please sign Rx. documented in this encounter Plan of Treatment Upcoming Encounters Date Type Department Care Team (Late st Contact Info) Description 04/04/2024 10:30 AM MDT Office Visit [facility] [address] [facility] [address] [place] [address] Mk Mccracken MD [address] [facility] [address] [place] [address] documented as of this encounter Visit Diagnoses Not on filedocumented in this encounter Care Teams Stereotyper Apprentice Relationship Specialty Start Date End Date Calixto Han MD PCP - General 05/08/20 documented as of this encounter
--- OUTSIDE RECORDS SUMMARY | 2024-01-25 17:41 | XMS_ITS | Encounter Summary ---
Author Name Unknown Organization [facility] Katie utishima Address [address] [place] [phone] Phone Care Team Providers Care [place] Technician Name Role Phone Calixto Han MD Primary Care Provider Unavail able Encounter Details Date Type Department Care Team (Late st Contact Info) Description 12/14/2023 Orders Only [facility] [address] [place] [address] [place] [address] [place] [address] [place] [address] [address] [place], [place] [address] Social History Tobacco Use Types Packs/Day Years Used Date Smoking Tobacco: Every Day Cigarettes Smokeless Tobacco: Never Alcohol Use Standard Drinks/Week Comments Not Currently 0 (1 standard drink = 0.6 oz pur e alcohol) Sex and Gender Information Value Date Recorded Sex Assigned at Not on file Gender Identity Not on file Sexual Orientation Not on file documented as of this encounter Plan of Treatment Upcoming Encounters Date Type Department Care Team (Late st Contact Info) Description 04/04/2024 10:30 AM MDT Office Visit [facility] [address] [place] [address] Mk Mccracken MD [address] [place], [place] [address] documented as of this encounter Procedures Procedure Name Priority Date/Time Associated Diagnosis Comments TOTAL PROTEIN W/ CREATININE, URINE, RANDOM Routine 12/14/2023 9:49 AM CHIEF RECORDIST VITAMIN D, 25-HYDROXY, SERUM Routine 12/14/2023 9:49 AM CHIEF RECORDIST CBC (INCLUDES DIFFERENTIAL/PLATEL ETS) Routine 12/14/2023 9:49 AM CHIEF RECORDIST URINALYSIS, COMPLETE Routine 12/14/2023 9:49 AM CHIEF RECORDIST RENAL FUNCTION PANEL (RFP) Routine 12/14/2023 9:49 AM CHIEF RECORDIST URIC ACID, SERUM Routine 12/14/2023 9:49 AM CHIEF RECORDIST FERRITIN, SERUM Routine 12/14/2023 9:49 AM CHIEF RECORDIST IRON AND TIBC, SERUM Routine 12/14/2023 9:49 AM CHIEF RECORDIST PTH INTACT W/O CALCIUM, SERUM Routine 12/14/2023 9:49 AM CHIEF RECORDIST documented in this encounter Results * Total Protein w/ Creatinine, Urine, Random (12/14/2023 9:49 AM CHIEF RECORDIST) Creatinine, Urine 56 20 - 275 mg/dL [facility] ([facility]) Protein/Creatin ine, Urine 107 24 - 184 mg/g creat [facility] Protein/Creatin ine, Urine 0.107 0.024 - 0.184 mg/mg creat [facility] Protein, Urine 6 5 - 24 mg/dL [facility]) 12/14/2023 9:49 AM CHIEF RECORDIST 12/14/2023 9:50 AM CHIEF RECORDIST Narrative Resulting Agency Comment Performing Organization Information: ?Site ID: [id number] ?Name: [employer] ?Address: [address] [place] [phone] ?Director: Harshad Frias Mk Mccracken MD LAB URINE ORDERABLES [facility] ([facility]) * (ABNORMAL) Vitamin D, 25-Hydroxy, Serum (12/14/2023 9:49 AM CHIEF RECORDIST) Calcidiol, Serum/Plasma 27(L) 30 - 100 ng/mL [facility] ([facility]) Comment: Vitamin D Status ? 25-OH Vitamin D: Deficiency: ?<20 ng/mL Insufficiency: ? 20 - 29 ng/mL Optimal: ? > or = 30 ng/mL For 25-OH Vitamin D testing on patients on D2-supplementation and patients for whom quantitation of D2 and D3 fractions is required, the QuestAssureD(TM) 25-OH VIT D, (D2,D3), LC/MS/MS is recommended: order code 08756 (patients >2yrs). See Note 1 Note 1 For additional information, please refer to http://education.[employer]/faq/LMK724 (This link is being provided for informational/ educational purposes only.) 12/14/2023 9:49 AM CHIEF RECORDIST 12/14/2023 9:50 AM CHIEF RECORDIST Narrative Resulting Agency Comment Performing Organization Information: ?Site ID: [id number] ?Name: [employer]immie [facility] ?Address: [address] [place] [phone] ?Director: Harshad Frias Mk Mccracken MD LAB BLOOD ORDERABLES [facility] ([facility]) * PTH Intact w/o Calcium, Serum (12/14/2023 9:49 AM CHIEF RECORDIST) PTH, Intact, Serum/Plasma 57 16 - 77 pg/mL [facility] ([facility]) Comment: Interpretive Guide ?Intact PTH ? Calcium ? ------- Normal Parathyroid ?Normal ? Normal Hypoparathyroidism ?Low or Low Normal ?Low Hyperparathyroidism ?? Primary ?Normal or High ? High ?? Secondary ?High ? Normal or Low ?? Tertiary ? High ? High Non-Parathyroid ?? Hypercalcemia ?Low or Low Normal ?High 12/14/2023 9:49 AM CHIEF RECORDIST 12/14/2023 9:50 AM CHIEF RECORDIST Narrative Resulting Agency Comment Performing Organization Information: ?Site ID: [id number] ?Name: [employer] ?Address: [address] [place], [place] [address] [address] ?Director: Harshad Frias Mk Mccracken MD LAB BLOOD ORDERABLES Performing Organization Address [facility] de Phone Number [facility] * Ferritin, Serum (12/14/2023 9:49 AM CHIEF RECORDIST) Ferritin, Serum/Plasma 46 16 - 232 ng/mL [facility] ([facility]) 12/14/2023 9:49 AM CHIEF RECORDIST 12/14/2023 9:50 AM CHIEF RECORDIST Narrative Resulting Agency Comment Performing Organization Information: ?Site ID: [id number] ?Name: [facility] ?Address: [address] [place], [place] [address] [address] ?Director: Harshad Frias Mk Mccracken MD LAB BLOOD ORDERABLES Performing Organization Address [facility] de Phone Number [facility] ([facility] * (ABNORMAL) CBC (includes Differential/Platelets) (12/14/2023 9:49 AM CHIEF RECORDIST) Pathologist [facility] Leukocytes, Blood 7.5 3.8 - 10.8 Thousand/u [...] [facility]) 12/14/2023 9:49 AM CHIEF RECORDIST 12/14/2023 9:50 AM CHIEF RECORDIST Narrative Resulting Agency Comment Performing Organization Information: ?Site ID: [id number] ?Name: [facility] ?Address: [address] [place] [address] [place] [address] ?Director: Harshad Frias Mk Mccracken MD LAB BLOOD ORDERABLES [facility] ([facility]) * Urinalysis, Complete (12/14/2023 9:49 AM CHIEF RECORDIST) Color of Urine YELLOW YELLOW [facility] [...] elements seen were reported. 12/14/2023 9:49 AM CHIEF RECORDIST 12/14/2023 9:50 AM CHIEF RECORDIST Narrative Resulting Agency Comment Performing Organization Information: ?Site ID: ?Name: [facility] ?Address: [address] [place] [address] [place] [address] ?Director: Harshad Frias Mk Mccracken MD LAB URINE ORDERABLES [facility] ([facility]) * (ABNORMAL) Renal Function Panel (RFP) (12/14/2023 9:49 AM CHIEF RECORDIST) Glucose, Serum/Plasma 85 65 - 99 mg/dL [...] [facility]) 12/14/2023 9:49 AM CHIEF RECORDIST 12/14/2023 9:50 AM CHIEF RECORDIST Narrative Resulting Agency Comment Performing Organization Information: ?Site ID: [id number] ?Name: [employer] [facility] ?Address: [address] [place], [place] [address] [address] ?Director: Harshad Frias Mk Mccracken MD LAB BLOOD ORDERABLES Performing Organization Address [facility]/ZIP Co de Phone Number [facility] ([facility]) * (ABNORMAL) Iron and TIBC, Serum (12/14/2023 9:49 AM CHIEF RECORDIST) Iron, Serum/Plasma 45 40 - 190 mcg/dL [facility] ([facility]) Iron binding capacity, Serum/Plasma 409 250 - 450 mcg/dL (calc) [facility] ([facility]) Iron saturation, Serum/Plasma 11(L) 16 - 45 % (calc) [facility] ([facility]) 12/14/2023 9:49 AM CHIEF RECORDIST 12/14/2023 9:50 AM CHIEF RECORDIST Narrative Resulting Agency Comment Performing Organization Information: ?Site ID: [id number] ?Name: [employer] Rich-Jimmie Granado ?Address: [address] [place], [place] [address] [address] ?Director: Harshad Frias Mk Mccracken MD LAB BLOOD ORDERABLES Performing Organization Address [facility]/ZIP Co de Phone Number [facility] * Uric Acid, Serum (12/14/2023 9:49 AM CHIEF RECORDIST) Urate, Serum/Plasma 5.1 2.5 - 7.0 mg/dL [facility] ([facility]) Comment: Therapeutic target for gout patients: <6.0 mg/dL ?? 12/14/2023 9:49 AM CHIEF RECORDIST 12/14/2023 9:50 AM CHIEF RECORDIST Narrative Resulting Agency Comment Performing Organization Information: ?Site ID: [id number] ?Name: [employer] Rich-Jimmie Granado ?Address: [address] [place], [place] [address] [address] ?Director: Harshad Frias Mk Mccracken MD LAB BLOOD ORDERABLES [facility] ([place]) documented in this encounter Visit Diagnoses Not on filedocumented in this encounter Care Teams [place] Technician Relationship Specialty Start Date End Date Calixto Han MD PCP - General 05/08/20 documented as of this encounter
--- OUTSIDE RECORDS SUMMARY | 2024-01-25 17:41 | XMS_ITS | Clinical Summary ---
Author Name Unknown Organization [facility] Address [address] [place] [id number] Care Team Providers Care Archaeologist Name Role Phone Leon Han Primary Care Provider [phone] Allergies Active Allergy Reactions Criticality Noted Date Comments Ibuprofen 08/20/2019 Kidney disease Medications Medication Sig Dispensed Refills Start Date End Date Status docusate sodium (COLACE) 100 MG capsule Take 100 mg by mouth 2 times daily as needed for constipation Active estradiol (ESTRACE) 1 MG tablet Take 1 mg by mouth daily Active ondansetron (ZOFRAN-ODT) 4 MG ODT tab Take 4 mg by mouth every 6 hours as needed for nausea Active thyroid (ARMOUR) 15 MG tablet Take 15 mg by mouth daily Active acetaZOLAMIDE (DIAMOX) 250 MG tablet Take 500 mg by mouth 2 times daily (must be dispensed as a tablet, not capsule) Active oxyCODONE IR (ROXICODONE) 10 MG tablet Take 10 mg by mouth 3 times daily as needed for severe pain Active traZODone (DESYREL) 50 MG tablet Take 50 mg by mouth nightly as needed for sleep Active lisinopril (ZESTRIL) 20 MG tablet Take 20 mg by mouth daily Active medical cannabis (Patient's own supply) See Admin Instructions (The purpose of this order is to document that the patient reports taking medical cannabis. This is not a prescription, and is not used to certify that the patient has a qualifying medical condition.) Active lidocaine (XYLOCAINE) 2 % external gel Apply topically as needed for moderate pain Apply 0.5 to 1 mL of topical lidocaine to the anal fissure as needed for pain. You may use this 4-5 times per day 30 mL 06/11/2020 Active vitamin D2 (ERGOCALCIFEROL) 14313 units (1250 mcg) capsule Take 50,000 Units by mouth once a week X 8 weeks Active Active Problems Problem Noted Date Diagnosed Date Abscess of postoperative wound of abdominal wall 08/21/2019 Pseudotumor cerebri 08/21/2019 Fibromyalgia 08/21/2019 Autosomal dominant polycystic kidney disease Essential hypertension, benign 01/15/2007 Gastrointestinal Crohn's disease 01/15/2007 Confusion and disorientation Encounters Date Type Department Care Team Description 11/17/2023 3:21 PM PRODUCTION SPECIALIST - 11/17/2023 7:50 PM PRODUCTION SPECIALIST Emergency [facility] [address] [place] [id number] Jorge Roberts MD Pulmonary nodule; Progressive hearing loss of left ear; Left ear pain; Nonspecific chest pain; Elevated blood pressure reading without diagnosis of hypertension Discharge Disposition: Home or Self Care 11/17/2023 Travel from Last 3 Months Family History Medical History Relation Comments Cerebrovascular Disease Father Myocardial Infarction Father Myocardial Infarction Maternal Grandfather Had b ypass surgery Coronary Artery Disease Maternal Uncle Hypertension Mother Relation Status Comments Father Alive Maternal Grandfather Maternal Grandmother Maternal Uncle Mother Alive Paternal Grandfather Paternal Grandmother Social History Tobacco Use Types Packs/Day Years Used Date Smoking Tobacco: Every Day Cigarettes 0.5 23.8 Started: 04/23/2000 Smokeless Tobacco: Never Comments:patient has quit of f on and for Alcohol Use Standard Drinks/Week Comments Not Currently 0 (1 standard drink = 0.6 oz pur e alcohol) Adolescent Education Answer Date Record ed Getting School Help Needed Not on file 07/23 Sex and Gender Information Value Date Recorded Sex Assigned at Not on file Gender Identity Not on file Sexual Orientation Not on file Last Filed Vital Signs Vital Sign Reading Time Taken Comments Blood Pressure 134/96 11/17/2023 7:42 PM PRODUCTION SPECIALIST Pulse 56 11/17/2023 7:42 PM PRODUCTION SPECIALIST Temperature 36.6 ??C (97.9 ??F) 11/17/2023 3:19 PM CS T Respiratory Rate 18 11/17/2023 7:42 PM PRODUCTION SPECIALIST Oxygen Saturation 99% 11/17/2023 7:42 PM PRODUCTION SPECIALIST Inhaled Oxygen Concentration - - Weight 104.3 kg (229 lb 15 oz) 11/17/2023 3:21 P M PRODUCTION SPECIALIST Height 167.6 cm (5' 6) 11/17/2023 3:19 PM PRODUCTION SPECIALIST Body Mass Index 37.11 11/17/2023 3:19 PM PRODUCTION SPECIALIST Plan of Treatment Health Maintenance Due Date Last Done Comments ADVANCE CARE PLANNING 1982 ANNUAL REVIEW OF HM ORDERS 1982 MAMMO SCREENING 1982 TSH W/FREE T4 REFLEX 1982 URINE DRUG SCREEN 1982 YEARLY PREVENTIVE VISIT 1982 Pneumococcal Vaccine: Pediatrics (0 to 5 Years) and At-Risk Patients (6 to 64 Years) (1 of 2 - PCV) 1988 HIV SCREENING 1997 HEPATITIS C SCREENING 2000 HEPATITIS B IMMUNIZATION (1 of 3 - 19+ 3-dose series) 2001 PAP 2003 DTAP/TDAP/TD IMMUNIZATION (1 - Tdap) 2007 LIPID 2022 COVID-19 Vaccine ( - season) 2023 INFLUENZA VACCINE (#1) 2023 3, 07/01/2013, 07/06/2012, Additional history exists PHQ-2 (once per calendar year) 2023 GLUCOSE 11/17/2026 11/17/2023, 05/17, 08/24/2019, Additional history exists HPV IMMUNIZATION Aged Out No longer e ligible based on patient's age to complete this topic IPV IMMUNIZATION Aged Out No longer e ligible based on patient's age to complete this topic MENINGITIS IMMUNIZATION Aged Out No l onger eligible based on patient's age to complete this topic RSV MONOCLONAL ANTIBODY Aged Out No l onger eligible based on patient's age to complete this topic Procedures Procedure Name Priority Date/Time Associated Diagnosis Comments CT CHEST PULMONARY EMBOLISM W CONTRAST STAT 11/17/2023 6:29 PM PRODUCTION SPECIALIST CTA HEAD NECK W CONTRAST STAT 11/17/2023 6:[address] HEAD W/O CONTRAST STAT 11/17/2023 6:27 PM PRODUCTION SPECIALIST TROPONIN T, HIGH SENSITIVITY STAT 11/17/2023 5:30 PM PRODUCTION SPECIALIST CBC WITH PLATELETS & DIFFERENTIAL STAT 11/17/2023 3:27 PM PRODUCTION SPECIALIST D DIMER QUANTITATIVE STAT 11/17/2023 3:27 PM PRODUCTION SPECIALIST EXTRA RED TOP TUBE STAT 11/17/2023 3: 27 PM PRODUCTION SPECIALIST EXTRA BLUE TOP TUBE STAT 11/17/2023 3 :27 PM PRODUCTION SPECIALIST CBC WITH PLATELETS AND DIFFERENTIAL STAT 11/17/2023 3:27 PM PRODUCTION SPECIALIST EXTRA TUBE STAT 11/17/2023 3:27 PM PRODUCTION SPECIALIST TROPONIN T, HIGH SENSITIVITY STAT 11/17/2023 3:27 PM PRODUCTION SPECIALIST BASIC METABOLIC PANEL STAT 11/17/2023 3:27 PM PRODUCTION SPECIALIST EKG 12-LEAD, TRACING ONLY STAT 11/17/2023 3:13 PM PRODUCTION SPECIALIST from Last 3 Months Results * CT Chest Pulmonary Embolism w Contrast (11/17/2023 6:29 PM PRODUCTION SPECIALIST) Anatomical Region Laterality Modality Chest, SUBRAD CT BODY, UMP CT CHEST Computed Tomography 11/17/2023 6:29 PM PRODUCTION SPECIALIST Impressions 11/17/2023 6:45 PM PRODUCTION SPECIALIST IMPRESSION: 1. ??No pulmonary embolism. 2. ??Previous granulomatous infection. 3. ??New 5 mm groundglass nodule in the right upper lobe is likely inflammatory. 4. ??Changes of autosomal dominant polycystic kidney disease. A few of the cysts are complex. A yearly follow-up could be performed. Nonobstructive stones left kidney. Narrative 11/17/2023 6:45 PM PRODUCTION SPECIALIST EXAM: CT CHEST PULMONARY EMBOLISM W CONTRAST LOCATION: [facility] DATE: 11/17/2023 INDICATION: Chest pain, elevated d-dimer. COMPARISON: 08/20/2019. TECHNIQUE: CT chest pulmonary angiogram during arterial phase injection of IV contrast. Multiplanar reformats and MIP reconstructions were performed. Dose reduction techniques were used. CONTRAST: 100mL Isovue 370 FINDINGS: ANGIOGRAM CHEST: Pulmonary arteries are normal caliber and negative for pulmonary emboli. Thoracic aorta is negative for dissection. No CT evidence of right heart strain. LUNGS AND PLEURA: New 5 mm groundglass nodule within the right upper lobe which is likely inflammatory. MEDIASTINUM/AXILLAE: Calcified right hilar lymph nodes. CORONARY ARTERY CALCIFICATION: None. UPPER ABDOMEN: Changes of autosomal dominant polycystic kidney disease. Kidneys are partially visualized. A few nonobstructing stones within the left kidney. A few of the cysts are complex. MUSCULOSKELETAL: Normal. Procedure Note Josh Brady MD - 11/17/2023 EXAM: CT CHEST PULMONARY EMBOLISM W CONTRAST LOCATION: [facility] DATE: 11/17/2023 INDICATION: Chest pain, elevated d-dimer. COMPARISON: 08/20/2019. TECHNIQUE: CT chest pulmonary angiogram during arterial phase injection ofIV contrast. Multiplanar reformats and MIP reconstructions were performed.Dose reduction techniques were used. CONTRAST: 100mL Isovue 370 FINDINGS: ANGIOGRAM CHEST: Pulmonary arteries are normal caliber and negative forpulmonary emboli. Thoracic aorta is negative for dissection. No CTevidence of right heart strain. LUNGS AND PLEURA: New 5 mm groundglass nodule within the right upper lobewhich is likely inflammatory. MEDIASTINUM/AXILLAE: Calcified right hilar lymph nodes. CORONARY ARTERY CALCIFICATION: None. UPPER ABDOMEN: Changes of autosomal dominant polycystic kidney disease.Kidneys are partially visualized. A few nonobstructing stones within theleft kidney. A few of the cysts are complex. MUSCULOSKELETAL: Normal. IMPRESSION: 1. No pulmonary embolism. 2. Previous granulomatous infection. 3. New 5 mm groundglass nodule in the right upper lobe is likelyinflammatory. 4. Changes of autosomal dominant polycystic kidney disease. A few of thecysts are complex. A yearly follow-up could be performed. Nonobstructivestones left kidney. Jorge Roberts MD IMG CT ORDERABLES * CTA Head Neck with Contrast (11/17/2023 6:28 PM PRODUCTION SPECIALIST) Anatomical Region Laterality Modality Head, SUBRAD CT NEURO, SUBRA D CT NEURO, UMP CT NEURO, RAD CT Computed Tomography 11/17/2023 6:28 PM PRODUCTION SPECIALIST Impressions 11/17/2023 7:08 PM PRODUCTION SPECIALIST IMPRESSION: HEAD CT: 1. ??No acute intracranial process. HEAD CTA: 1. ??Normal CTA deering of [place]. NECK CTA: 1. ??Normal neck CTA. Narrative 11/17/2023 7:08 PM PRODUCTION SPECIALIST EXAM: CT HEAD W/O CONTRAST, CTA HEAD NECK W CONTRAST LOCATION: [facility] DATE/TIME: 11/17/2023 6:27 PM PRODUCTION SPECIALIST INDICATION: Headache, left arm numbness COMPARISON: No recent comparison. CONTRAST: 100 mL Isovue 370 TECHNIQUE: Head and neck CT angiogram with IV contrast. Noncontrast head CT followed by axial helical CT images of the head and neck vessels obtained during the arterial phase of intravenous contrast administration. Axial 2D reconstructed images and multiplanar 3D MIP reconstructed images of the head and neck vessels were performed by the technologist. Dose reduction techniques were used. All stenosis measurements made according to NASCET criteria unless otherwise specified. FINDINGS: NONCONTRAST HEAD CT: INTRACRANIAL CONTENTS: No intracranial hemorrhage, extraaxial collection, or mass effect. ??No CT evidence of acute infarct. Normal parenchymal attenuation. Normal ventricles and sulci. VISUALIZED ORBITS/SINUSES/MASTOIDS: No intraorbital abnormality. No significant paranasal sinus mucosal disease. No middle ear or mastoid effusion. BONES/SOFT TISSUES: No acute abnormality. HEAD CTA: ANTERIOR CIRCULATION: No stenosis/occlusion, aneurysm, or high flow vascular malformation. Standard deering of [place] anatomy. POSTERIOR CIRCULATION: No stenosis/occlusion, aneurysm, or high flow vascular malformation. Dominant left and smaller right vertebral artery contribute to a normal basilar artery. DURAL VENOUS SINUSES: Expected enhancement of the major dural venous sinuses. NECK CTA: RIGHT CAROTID: No measurable stenosis or dissection. The ascending pharyngeal artery arises from the proximal right ICA. LEFT CAROTID: No measurable stenosis or dissection. VERTEBRAL ARTERIES: No focal stenosis or dissection. Dominant left and smaller right vertebral arteries. AORTIC ARCH: Classic aortic arch anatomy with no significant stenosis at the origin of the great vessels. NONVASCULAR STRUCTURES: Unremarkable. Procedure Note Nasim Madrid MD - 11/17/2023 EXAM: CT HEAD W/O CONTRAST, CTA HEAD NECK W CONTRAST LOCATION: [facility] DATE/TIME: 11/17/2023 6:27 PM PRODUCTION SPECIALIST INDICATION: Headache, left arm numbness COMPARISON: No recent comparison. CONTRAST: 100 mL Isovue 370 TECHNIQUE: Head and neck CT angiogram with IV contrast. Noncontrast headCT followed by axial helical CT images of the head and neck vesselsobtained during the arterial phase of intravenous contrast administration.Axial 2D reconstructed images and multiplanar 3D MIP reconstructed images of the head and neck vessels wereperformed by the technologist. Dose reduction techniques were used. Allstenosis measurements made according to NASCET criteria unless otherwisespecified. FINDINGS: NONCONTRAST HEAD CT: INTRACRANIAL CONTENTS: No intracranial hemorrhage, extraaxial collection,or mass effect. No CT evidence of acute infarct. Normal parenchymalattenuation. Normal ventricles and sulci. VISUALIZED ORBITS/SINUSES/MASTOIDS: No intraorbital abnormality. Nosignificant paranasal sinus mucosal disease. No middle ear or mastoideffusion. BONES/SOFT TISSUES: No acute abnormality. HEAD CTA: ANTERIOR CIRCULATION: No stenosis/occlusion, aneurysm, or high flowvascular malformation. Standard deering of [place] anatomy. POSTERIOR CIRCULATION: No stenosis/occlusion, aneurysm, or high flowvascular malformation. Dominant left and smaller right vertebral arterycontribute to a normal basilar artery. DURAL VENOUS SINUSES: Expected enhancement of the major dural venoussinuses. NECK CTA: RIGHT CAROTID: No measurable stenosis or dissection. The ascendingpharyngeal artery arises from the proximal right ICA. LEFT CAROTID: No measurable stenosis or dissection. VERTEBRAL ARTERIES: No focal stenosis or dissection. Dominant left andsmaller right vertebral arteries. AORTIC ARCH: Classic aortic arch anatomy with no significant stenosis atthe origin of the great vessels. NONVASCULAR STRUCTURES: Unremarkable. IMPRESSION: HEAD CT: 1. No acute intracranial process. HEAD CTA: 1. Normal CTA deering of [place]. NECK CTA: 1. Normal neck CTA. Jorge Roberts MD IMG CT ORDERABLES * CT Head w/o Contrast (11/17/2023 6:27 PM PRODUCTION SPECIALIST) Anatomical Region Laterality Modality Head, SUBRAD CT NEURO, SUBRA D CT NEURO, UMP CT NEURO, RAD CT Computed Tomography 11/17/2023 6:27 PM PRODUCTION SPECIALIST Impressions 11/17/2023 7:08 PM PRODUCTION SPECIALIST IMPRESSION: HEAD CT: 1. ??No acute intracranial process. HEAD CTA: 1. ??Normal CTA deering of [place]. NECK CTA: 1. ??Normal neck CTA. Narrative 11/17/2023 7:08 PM PRODUCTION SPECIALIST EXAM: CT HEAD W/O CONTRAST, CTA HEAD NECK W CONTRAST LOCATION: [facility] DATE/TIME: 11/17/2023 6:27 PM PRODUCTION SPECIALIST INDICATION: Headache, left arm numbness COMPARISON: No recent comparison. CONTRAST: 100 mL Isovue 370 TECHNIQUE: Head and neck CT angiogram with IV contrast. Noncontrast head CT followed by axial helical CT images of the head and neck vessels obtained during the arterial phase of intravenous contrast administration. Axial 2D reconstructed images and multiplanar 3D MIP reconstructed images of the head and neck vessels were performed by the technologist. Dose reduction techniques were used. All stenosis measurements made according to NASCET criteria unless otherwise specified. FINDINGS: NONCONTRAST HEAD CT: INTRACRANIAL CONTENTS: No intracranial hemorrhage, extraaxial collection, or mass effect. ??No CT evidence of acute infarct. Normal parenchymal attenuation. Normal ventricles and sulci. VISUALIZED ORBITS/SINUSES/MASTOIDS: No intraorbital abnormality. No significant paranasal sinus mucosal disease. No middle ear or mastoid effusion. BONES/SOFT TISSUES: No acute abnormality. HEAD CTA: ANTERIOR CIRCULATION: No stenosis/occlusion, aneurysm, or high flow vascular malformation. Standard deering of [place] anatomy. POSTERIOR CIRCULATION: No stenosis/occlusion, aneurysm, or high flow vascular malformation. Dominant left and smaller right vertebral artery contribute to a normal basilar artery. DURAL VENOUS SINUSES: Expected enhancement of the major dural venous sinuses. NECK CTA: RIGHT CAROTID: No measurable stenosis or dissection. The ascending pharyngeal artery arises from the proximal right ICA. LEFT CAROTID: No measurable stenosis or dissection. VERTEBRAL ARTERIES: No focal stenosis or dissection. Dominant left and smaller right vertebral arteries. AORTIC ARCH: Classic aortic arch anatomy with no significant stenosis at the origin of the great vessels. NONVASCULAR STRUCTURES: Unremarkable. Procedure Note Nasim Madrid MD - 11/17/2023 EXAM: CT HEAD W/O CONTRAST, CTA HEAD NECK W CONTRAST LOCATION: [facility] DATE/TIME: 11/17/2023 6:27 PM PRODUCTION SPECIALIST INDICATION: Headache, left arm numbness COMPARISON: No recent comparison. CONTRAST: 100 mL Isovue 370 TECHNIQUE: Head and neck CT angiogram with IV contrast. Noncontrast headCT followed by axial helical CT images of the head and neck vesselsobtained during the arterial phase of intravenous contrast administration.Axial 2D reconstructed images and multiplanar 3D MIP reconstructed images of the head and neck vessels wereperformed by the technologist. Dose reduction techniques were used. Allstenosis measurements made according to NASCET criteria unless otherwisespecified. FINDINGS: NONCONTRAST HEAD CT: INTRACRANIAL CONTENTS: No intracranial hemorrhage, extraaxial collection,or mass effect. No CT evidence of acute infarct. Normal parenchymalattenuation. Normal ventricles and sulci. VISUALIZED ORBITS/SINUSES/MASTOIDS: No intraorbital abnormality. Nosignificant paranasal sinus mucosal disease. No middle ear or mastoideffusion. BONES/SOFT TISSUES: No acute abnormality. HEAD CTA: ANTERIOR CIRCULATION: No stenosis/occlusion, aneurysm, or high flowvascular malformation. Standard deering of [place] anatomy. POSTERIOR CIRCULATION: No stenosis/occlusion, aneurysm, or high flowvascular malformation. Dominant left and smaller right vertebral arterycontribute to a normal basilar artery. DURAL VENOUS SINUSES: Expected enhancement of the major dural venoussinuses. NECK CTA: RIGHT CAROTID: No measurable stenosis or dissection. The ascendingpharyngeal artery arises from the proximal right ICA. LEFT CAROTID: No measurable stenosis or dissection. VERTEBRAL ARTERIES: No focal stenosis or dissection. Dominant left andsmaller right vertebral arteries. AORTIC ARCH: Classic aortic arch anatomy with no significant stenosis atthe origin of the great vessels. NONVASCULAR STRUCTURES: Unremarkable. IMPRESSION: HEAD CT: 1. No acute intracranial process. HEAD CTA: 1. Normal CTA deering of [place]. NECK CTA: 1. Normal neck CTA. Jorge Roberts MD [facility] CT ORDERABLES * Troponin T, High Sensitivity (now) (11/17/2023 5:30 PM PRODUCTION SPECIALIST) Only the most recent of2 resultswithin the time period is included. [facility] Troponin T, High Sensitivity 7 <=14 ng/L 11/17/2023 5:56 PM PRODUCTION SPECIALIST LABORATORY Comment: Either a High Sensitivity Troponin T baseline (0 hours) value = 100 ng/L, or an increase in High Sensitivity Troponin T = 7 ng/L at 2 hours compared to 0 hours (2-0 hours), suggests myocardial injury, and urgent clinical attention is required. ?? If the 2-0 hours increase is <7 ng/L, a High Sensitivity Troponin T result above gender-specific reference ranges warrants further evaluation. Recommendations for further evaluation include correlation with clinical decision-making tool (e.g., HEART), a 3rd High Sensitivity Troponin T test 2 hours after the 2nd (a 20% change from baseline would represent concern), admission for observation, close PCC/cardiology follow-up, or urgent outpatient provocative testing. Blood BLOOD SPECIMEN / Unknown Venipuncture / Unknown 11/17/2023 5:30 PM PRODUCTION SPECIALIST 11/17/2023 5:33 PM PRODUCTION SPECIALIST Jorge Roberts MD LAB - BLOOD ORDERABL ES Performing Organization Address City/[facility]/ZIP Co de Phone Number [facility] Lab [address] Lab (1st floor, no room number) [place] [address], [facility] [phone] * Extra Red Top Tube (11/17/2023 3:27 PM PRODUCTION SPECIALIST) Hold Specimen [facility] 11/17/2023 5:01 PM PRODUCTION SPECIALIST LABORATORY Blood STRUCTURE OF LEFT UPPER LIMB / Unknown Venipuncture / Unknown 11/17/2023 3:27 PM PRODUCTION SPECIALIST 11/17/2023 3:47 PM PRODUCTION SPECIALIST Jorge Roberts MD LAB - BLOOD ORDERABL ES [facility] Lab [address] Lab (1st floor, no room number) [place] [address], [facility] [phone] * Extra Blue Top Tube (11/17/2023 3:27 PM PRODUCTION SPECIALIST) Hold Specimen [facility] 11/17/2023 5:01 PM PRODUCTION SPECIALIST LABORATORY Blood STRUCTURE OF LEFT UPPER LIMB / Unknown Venipuncture / Unknown 11/17/2023 3:27 PM PRODUCTION SPECIALIST 11/17/2023 3:48 PM PRODUCTION SPECIALIST Jorge Roberts MD LAB - BLOOD ORDERABL ES [facility] Lab [address] [facility] Lab (1st floor, no room number) [place] [address], [facility] [phone] * (ABNORMAL) CBC with platelets and differential (11/17/2023 3:27 PM PRODUCTION SPECIALIST) WBC Count 9.7 4.0 - 11.0 10e3/uL 11/17/2023 3:51 PM PRODUCTION SPECIALIST [facility] RBC Count 4.48 3.80 - 5.20 10e6/uL 11/17/2023 3:51 PM PRODUCTION SPECIALIST [facility] Hemoglobin 12.6 11.7 - 15.7 g/dL 11/17/2023 3:51 PM PRODUCTION SPECIALIST [facility] Hematocrit 41.1 35.0 - 47.0 % 11/17/2023 3:51 PM PRODUCTION SPECIALIST [facility] MCV 92 78 - 100 fL 11/17/2023 3:51 PM PRODUCTION SPECIALIST [facility] MCH 28.1 26.5 - 33.0 pg 11/17/2023 3:51 PM PRODUCTION SPECIALIST [facility] MCHC 30.7(L) 31.5 - 36.5 g/dL 11/17/2023 3:51 PM PRODUCTION SPECIALIST [facility] RDW 13.3 10.0 - 15.0 % 11/17/2023 3:51 PM PRODUCTION SPECIALIST [facility] Platelet Count 203 150 - 450 10e3/uL 11/17/2023 3:51 PM PRODUCTION SPECIALIST [facility] % Neutrophils 61 % 11/17/2023 3:51 PM PRODUCTION SPECIALIST [facility] % Lymphocytes 28 % 11/17/2023 3:51 PM PRODUCTION SPECIALIST [facility] % Monocytes 5 % 11/17/2023 3:51 PM PRODUCTION SPECIALIST [facility] % Eosinophils 5 % 11/17/2023 3:51 PM PRODUCTION SPECIALIST [facility] % Basophils 1 % 11/17/2023 3:51 PM PRODUCTION SPECIALIST [facility] % Immature Granulocytes 0 % 11/17/2023 3:51 PM PRODUCTION SPECIALIST [facility] NRBCs per 100 WBC 0 <1 /100 024 3:51 PM PRODUCTION SPECIALIST [facility] Absolute Neutrophils 6.0 1.6 - 8.3 10e3/uL 11/17/2023 3:51 PM PRODUCTION SPECIALIST [facility] Absolute Lymphocytes 2.7 0.8 - 5.3 10e3/uL 11/17/2023 3:51 PM PRODUCTION SPECIALIST [facility] Absolute Monocytes 0.5 0.0 - 1.3 10e3/uL 11/17/2023 3:51 PM PRODUCTION SPECIALIST [facility] Absolute Eosinophils 0.5 0.0 - 0.7 10e3/uL 11/17/2023 3:51 PM PRODUCTION SPECIALIST [facility] Absolute Basophils 0.1 0.0 - 0.2 10e3/uL 11/17/2023 3:51 PM PRODUCTION SPECIALIST [facility] Absolute Immature Granulocytes 0.0 <=0.4 10e3/uL 11/17/2023 3:51 PM PRODUCTION SPECIALIST [facility] Absolute NRBCs 0.0 10e3/uL 11/17/2023 3:51 PM PRODUCTION SPECIALIST [facility] Blood STRUCTURE OF LEFT UPPER LIMB / Unknown Venipuncture / Unknown 11/17/2023 3:27 PM PRODUCTION SPECIALIST 11/17/2023 3:48 PM PRODUCTION SPECIALIST Jorge Roberts MD LAB - BLOOD ORDERABL ES LABORATORY [facility] Lab [address] Lab (1st floor, no room number) [place] [address], [facility] [phone] * (ABNORMAL) D dimer quantitative (11/17/2023 3:27 PM PRODUCTION SPECIALIST) [facility] Signature D-Dimer Quantitative 0.54(H) 0.00 - 0.50 ug/mL FEU 11/17/2023 5:11 PM PRODUCTION SPECIALIST [facility] Blood STRUCTURE OF LEFT UPPER LIMB / Unknown Venipuncture / Unknown 11/17/2023 3:27 PM PRODUCTION SPECIALIST 11/17/2023 3:48 PM PRODUCTION SPECIALIST Narrative [facility] - 11/17/2023 5:11 PM PRODUCTION SPECIALIST This D-dimer assay is intended for use in conjunction with a clinical pretest probability assessment model to exclude pulmonary embolism (PE) and deep venous thrombosis (DVT) in outpatients suspected of PE or DVT. The cut-off value is 0.50 ug/mL FEU. Jorge Roberts MD LAB - BLOOD ORDERABL ES LABORATORY [facility] [address] Lab (1st floor, no room number) [place] [address], [facility] [phone] * (ABNORMAL) Basic metabolic panel (BMP) (11/17/2023 3:27 PM PRODUCTION SPECIALIST) Sodium 143 135 - 145 mmol/L 11/17/2023 4:11 PM PRODUCTION SPECIALIST LABORATORY Comment:Reference intervals for this test were updated on 07/11/2023 to more accurately reflect our healthy population. There may be differences in the flagging of prior results with similar values performed with this method. Interpretation of those prior results can be made in the context of the updated reference intervals. Potassium 3.8 3.4 - 5.3 mmol/L 11/17/2023 4:11 PM PRODUCTION SPECIALIST LABORATORY Chloride 112(H) 98 - 107 mmol/L 11/17/2023 4:11 PM PRODUCTION SPECIALIST LABORATORY Carbon Dioxide (CO2) 19(L) 22 - 29 mmol/L 11/17/2023 4:11 PM [facility] Anion Gap 12 7 - 15 mmol/L 11/17/2023 4:11 PM PRODUCTION [facility]IST LABORATORY Urea Nitrogen 29.4(H) 6.0 - 20.0 mg/dL 11/17/2023 4:11 PM [facility] Creatinine 1.87(H) 0.51 - 0.95 mg/dL 11/17/2023 4:11 PM [facility] GFR Estimate 34(L) >60 mL/min/1. 73m2 11/17/2023 4:11 PM [facility] LABORAT[facility] Calcium 9.0 8.6 - 10.0 mg/dL 11/17/2023 4:11 PM [facility] Glucose 96 70 - 99 mg/dL 11/17/2023 4:11 PM [facility] Blood STRUCTURE OF LEFT UPPER LIMB / Unknown Venipuncture / Unknown 11/17/2023 3:27 PM PRODUCTION SPECIALIST 11/17/2023 3:47 PM PRODUCTION SPECIALIST Jorge Roberts MD LAB - BLOOD ORDERABL ES Performing Organization Address City/[facility]/ZIP Co de Phone Number LABORATORY [facility] [address] Lab (1st floor, no room number) [place] [address], [facility] [phone] * EKG 12 lead (11/17/2023 3:13 PM PRODUCTION SPECIALIST) Systolic Blood Pressure mmHg RADIOLOGY RESULTS Diastolic Blood Pressure mmHg RADIOLOGY RESULTS Ventricular Rate 80 BPM RAD IOLOGY RESULTS Atrial Rate 80 BPM RADIOLOG Y RESULTS [place] Interval 164 ms RADIOLOG Y RESULTS QRS Duration 78 ms RADIOLO GY RESULTS QT 374 ms RADIOLOGY RESULTS QTc 431 ms RADIOLOGY RESULTS P [place] 66 degrees RADIOLOGY RESULTS R AXIS 43 degrees RADIOLOGY RESULTS T [place] 57 degrees RADIOLOGY RESULTS Interpretation ECG Sinus rhythm Normal ECG When compared with ECG of 11-JUN-2020 13:48, Vent. rate has increased BY ??31 BPM Unconfirmed report - interpretation of this ECG is computer generated - see medical record for final interpretation Confirmed by - EMERGENCY ROOM, PHYSICIAN ([id number]), photography editor SHAWN RENDON ([id number]) on 11/17/2023 3:38:15 PM RADIOLOGY RESULTS 11/17/2023 3:13 PM PRODUCTION SPECIALIST 11/17/2023 3:38 PM PRODUCTION SPECIALIST Jorge Roberts MD ECG ORDERABLES RADIOLOGY RESULTS from Last 3 Months Advance Directives For more information, please contact: [phone] * Full Code (Latest Code Status on File) Date Activated Date Inactivated Comments 08/24/2019 1:11 PM 06/11/2020 12:25 PM Per previou s documentation. Question Answer Comments Code status determined by: Other (please documen t) * Full Code Date Activated Date Inactivated Comments 08/21/2019 3:26 AM 08/24/2019 1:11 PM Question Answer Comments Code status determined by: Discussion with isri nt/legal decision maker Care Teams Archaeologist Relationship Specialty Start Date End Date Leon Han PCP - General Family Practice 08/20/19
--- OUTSIDE RECORDS SUMMARY | 2024-01-25 17:42 | XMS_ITS | Encounter Summary ---
Author Name Unknown Organization [facility] Address [address] [place] [id number] Care Team Providers Care Ginger Farmer Name Role Phone HanLeon ramos Primary Care Provider [phone] Reason for Visit * Reason Comments Chest Pain Encounter Details Date Type Department Care Team (Late st Contact Info) Description 11/17/2023 3:21 PM FORESTRY TECHNICIAN - 11/17/2023 7:[address] [facility] Emergency [facility] Emergency Dept [address] [place] [address] Jorge Roberts MD EMERGENCY PHYSICIAN [facility] [address] [place] [address] [place] [id number] Pulmonary nodule; Progressive hearing loss of left ear; Left ear pain; Nonspecific chest pain; Elevated blood pressure reading without diagnosis of hypertension Discharge Disposition: Home or Self Care Social History Tobacco Use Types Packs/Day Years [...] on file documented as of this encounter Last Filed Vital Signs Vital Sign Reading Time Taken Comments Blood Pressure 134/96 11/17/2023 7:42 PM FORESTRY TECHNICIAN Pulse 56 11/17/2023 7:42 PM FORESTRY TECHNICIAN Temperature 36.6 ??C (97.9 ??F) 11/17/2023 3:19 PM CS T Respiratory Rate 18 11/17/2023 7:42 PM FORESTRY TECHNICIAN Oxygen Saturation 99% 11/17/2023 7:42 PM FORESTRY TECHNICIAN Inhaled Oxygen Concentration - - Weight 104.3 kg (229 lb 15 oz) 11/17/2023 3:21 P M FORESTRY TECHNICIAN Height 167.6 cm (5' 6) 11/17/2023 3:19 PM FORESTRY TECHNICIAN Body Mass Index 37.11 11/17/2023 3:19 PM FORESTRY TECHNICIAN documented in this encounter Discharge Instructions * Attachments The following attachments cannot be sent through Care Everywhere. * Earache: Adult (Syrian) * Chest Pain (Syrian) * Hearing Loss (Syrian) * Pulmonary Nodules: General Info (Syrian) documented in this encounter Medications at Time of Discharge Medication Sig Dispensed Refills Start Date End Date acetaZOLAMIDE (DIAMOX) 250 MG tablet Take 500 mg by mouth 2 times daily (must be dispensed as a tablet, not capsule) docusate sodium (COLACE) 100 MG capsule Take 100 mg by mouth 2 times daily as needed for constipation estradiol (ESTRACE) 1 MG tablet Take 1 mg by mouth daily lidocaine (XYLOCAINE) 2 % external gel Apply topically as needed for moderate pain Apply 0.5 to 1 mL of topical lidocaine to the anal fissure as needed for pain. You may use this 4-5 times per day 30 mL 06/11/2020 lisinopril (ZESTRIL) 20 MG tablet Take 20 mg by mouth daily medical cannabis (Patient's own supply) See Admin Instructions (The purpose of this order is to document that the patient reports taking medical cannabis. This is not a prescription, and is not used to certify that the patient has a qualifying medical condition.) ondansetron (ZOFRAN-ODT) 4 MG ODT tab Take 4 mg by mouth every 6 hours as needed for nausea oxyCODONE IR (ROXICODONE) 10 MG tablet Take 10 mg by mouth 3 times daily as needed for severe pain thyroid (ARMOUR) 15 MG tablet Take 15 mg by mouth daily traZODone (DESYREL) 50 MG tablet Take 50 mg by mouth nightly as needed for sleep vitamin D2 (ERGOCALCIFEROL) 04289 units (1250 mcg) capsule Take 50,000 Units by mouth once a week X 8 weeks documented as of this encounter ED Notes * Kimberly Castorena RN - 11/17/2023 3:17 PM CST Left sided CP radiating up neck and shoulder. Started Monday morning. SOB since Monday as well. Denies fever or cough. STRY TECHNICIAN * Jorge Roberts MD - 11/17/2023 3:08 PM CST History Chief Complaint: Chest Pain HPI Tanisha Ritter is a 43 year old female with history of chronic pain syndrome, polycystic kidney disease, endometriosis, fibromyalgia, Crohn's disease who presents with multiple complaints. First, she has had ongoing left ear pain and decreased hearing for which she has seen ENT and neurology. Thishas been going on for at least the past year but worsening over the past 2 months. She is supposed to see neurology after undergoing a CT of her head. However over the last couple of days her ear pain has worsened and now she is having pain radiating to the chest as well. She also feels somewhat short of breath but denies any fever or cough. She denies any vomiting, abdominal pain, diarrhea. She has not had this pain before. Independent Historian: None-patient only Review of External Notes: None Medications: acetaZOLAMIDE (DIAMOX) 250 MG tablet docusate sodium (COLACE) 100 MG capsule estradiol (ESTRACE) 1 MG tablet lidocaine (XYLOCAINE) 2 % external gel lisinopril (ZESTRIL) 20 MG tablet medical cannabis (Patient's own supply) ondansetron (ZOFRAN-ODT) 4 MG ODT tab oxyCODONE IR (ROXICODONE) 10 MG tablet thyroid (ARMOUR) 15 MG tablet traZODone (DESYREL) 50 MG tablet vitamin D2 (ERGOCALCIFEROL) 43104 units (1250 mcg) capsule Past Medical History: Past Medical History: Diagnosis Date Chronic pain syndrome Confusion and disorientation Crohn's disease (H) Endometriosis Polycystic kidney disease Polycystic ovarian disease Past Surgical History: No past surgical history on file. Physical Exam Patient Vitals for the past 24 hrs: BP Temp Temp src Pulse Resp SpO2 Height Weight 11/17/231941 (!) 134/96 -- -- 56 18 99 % -- -- 11/17/23 1521 -- -- -- -- -- -- -- 104.3 kg (229 lb 15 oz) 11/17/23 1519 (!) 178/97 97.9 ??F (36.6 ??C) Oral 64 20 100 % 1.676 m (5' 6) -- Physical Exam Vitals and nursing note reviewed. Constitutional: General: She is not in acute distress. Appearance: She is not ill-appearing. HENT: Head: Normocephalic and atraumatic. Right Ear: Tympanic membrane and external ear normal. Left Ear: Tympanic membrane and external ear normal. Nose: Nose normal. Mouth/Throat: Mouth: Mucous membranes are moist. Eyes: Extraocular Movements: Extraocular movements intact. Conjunctiva/sclera: Conjunctivae normal. Pupils: Pupils are equal, round, and reactive to light. Cardiovascular: Rate and Rhythm: Normal rate and regular rhythm. Heart sounds: No murmur heard. Pulmonary: Effort: Pulmonary effort is normal. No respiratory distress. Breath sounds: Normal breath sounds. No wheezing, rhonchi or rales. Abdominal: General: Abdomen is flat. Bowel sounds are normal. There is no distension. Palpations: Abdomen is soft. Tenderness: There is no abdominal tenderness. There is no guarding or rebound. Musculoskeletal: General: No deformity or signs of injury. Cervical back: Normal range of motion and neck supple. Skin: General: Skin is warm and dry. Findings: No rash. Neurological: Mental Status: She is alert and oriented to person, place, and time. Cranial Nerves: No cranial nerve deficit. Sensory: No sensory deficit. Motor: No weakness. Psychiatric: Behavior: Behavior normal. Emergency Department Course ECG ECG results from 11/17/23 EKG 12 lead Value Systolic Blood Pressure Diastolic Blood Pressure Ventricular Rate 80 Atrial Rate 80 [place] Interval 164 QRS Duration 78 QT 374 QTc 431 P [place] 66 R AXIS 43 T [place] 57 Interpretation ECG Sinus rhythm Normal ECG When compared with ECG of 11-JUN-2020 13:48, Vent. rate has increased BY 31 BPM Unconfirmed report - interpretation of this ECG is computer generated - see medical record for final interpretation Confirmed by - EMERGENCY ROOM, PHYSICIAN ([id number]), editor producer SHAWN RENDON ([id number]) on 11/17/2023 3:38:15 PM Imaging: CT Chest Pulmonary Embolism w Contrast Final Result IMPRESSION: 1. No pulmonary embolism. 2. Previous granulomatous infection. 3. New 5 mm groundglass nodule in the right upper lobe is likely inflammatory. 4. Changes of autosomal dominant polycystic kidney disease. A few of the cysts are complex. A yearly follow-up could be performed. Nonobstructive stones left kidney. CTA Head Neck with Contrast Final Result IMPRESSION: HEAD CT: 1. No acute intracranial process. HEAD CTA: 1. Normal CTA [place]. NECK CTA: 1. Normal neck CTA. CT Head w/o Contrast Final Result IMPRESSION: HEAD CT: 1. No acute intracranial process. HEAD CTA: 1. Normal CTA [place]. NECK CTA: 1. Normal neck CTA. Report per radiology Laboratory: Labs Ordered and Resulted from Time of ED Arrival to Time of ED Departure BASIC METABOLIC PANEL - Abnormal Result Value Sodium 143 Potassium 3.8 Chloride 112 (*) Carbon Dioxide (CO2) 19 (*) Anion Gap 12 Urea Nitrogen 29.4 (*) Creatinine 1.87 (*) GFR Estimate 34 (*) Calcium 9.0 Glucose 96 CBC WITH PLATELETS AND DIFFERENTIAL - Abnormal WBC Count 9.7 RBC Count 4.48 Hemoglobin 12.6 Hematocrit 41.1 MCV 92 MCH 28.1 MCHC 30.7 (*) RDW 13.3 Platelet Count 203 % Neutrophils 61 % Lymphocytes 28 % Monocytes 5 % Eosinophils 5 % Basophils 1 % Immature Granulocytes 0 NRBCs per 100 WBC 0 Absolute Neutrophils 6.0 Absolute Lymphocytes 2.7 Absolute Monocytes 0.5 Absolute Eosinophils 0.5 Absolute Basophils 0.1 Absolute Immature Granulocytes 0.0 Absolute NRBCs 0.0 D DIMER QUANTITATIVE - Abnormal D-Dimer Quantitative 0.54 (*) TROPONIN T, HIGH SENSITIVITY - Normal Troponin T, High Sensitivity 7 TROPONIN T, HIGH SENSITIVITY - Normal Troponin T, High Sensitivity 7 Emergency Department Course & Assessments: Interventions: Medications CT Scan Flush (90 mLs Intravenous $Given 11/17/231809) iopamidol (ISOVUE-370) solution 500 mL (100 mLs Intravenous $Given 11/17/231809) Independent Interpretation (X-rays, CTs, rhythm strip): None Consultations/Discussion of Management or Tests: None Social Determinants of Health affecting care: None Disposition: The patient was discharged to home. Impression & Plan [facility] [address] Diagnoses: None Medical Decision Makin-year-old female presenting with multiple complaints. First she has worsening left ear and neck pain with worsening hearing. The hearing issue has been ongoing for at least a year but the ear and neck pain has been worse over the last few days. She also has developed some chest pain today with some shortness of breath. Differential diagnosis is broad but includes otitis, mastoiditis, brain tumor, vertebral or carotid dissection, migraine, ACS, PE, pneumothorax, etc. Broad workup was pursued as noted above. Her EKG is nonischemic and troponin is normal making ACS highly unlikely. D-dimer wasslightly elevated so we CT her chest and there is no signs of a PE. She did have an inflammatory nicole earing nodule which I updated the patient on and recommended primary care follow-up. She has chronic kidney disease which is stable. CT of the head and neck vasculature was performed given the severeneck and head pain, but this showed no signs of aneurysm or dissection or bleed. I reassured the patient that her workup was quite unremarkable. I encouraged her to follow-up with ENT and neurology as planned. We discussed return precautions. Diagnosis: ICD-10-CM 1. Pulmonary nodule R91.1 2. Progressive hearing loss of left ear H91.92 3. Left ear pain H92.02 4. Nonspecific chest pain R07.9 5. Elevated blood pressure reading without diagnosis of hypertension R03.0 Discharge Medications: Discharge Medication List as of 11/17/2023 7:42 PM 11/17/2023 Jorge Roberts MD Goodwin, Shaun M, MD 11/17/232007 STRY TECHNICIAN documented in this encounter Plan of Treatment Not on file documented as of this encounter Procedures Procedure Name Priority Date/Time Associated Diagnosis Comments CT CHEST PULMONARY EMBOLISM W CONTRAST STAT 11/17/2023 6:29 PM FORESTRY TECHNICIAN CTA HEAD NECK W CONTRAST STAT 11/17/2023 6:[address] HEAD W/O CONTRAST STAT 11/17/2023 6:27 PM FORESTRY TECHNICIAN TROPONIN T, HIGH SENSITIVITY STAT 11/17/2023 5:30 PM FORESTRY TECHNICIAN EXTRA TUBE STAT 11/17/2023 3:27 PM FORESTRY TECHNICIAN EXTRA RED TOP TUBE STAT 11/17/2023 3: 27 PM FORESTRY TECHNICIAN EXTRA BLUE TOP TUBE STAT 11/17/2023 3 :27 PM FORESTRY TECHNICIAN CBC WITH PLATELETS AND DIFFERENTIAL STAT 11/17/2023 3:27 PM FORESTRY TECHNICIAN TROPONIN T, HIGH SENSITIVITY STAT 11/17/2023 3:27 PM FORESTRY TECHNICIAN CBC WITH PLATELETS & DIFFERENTIAL STAT 11/17/2023 3:27 PM FORESTRY TECHNICIAN D DIMER QUANTITATIVE STAT 11/17/2023 3:27 PM FORESTRY TECHNICIAN BASIC METABOLIC PANEL STAT 11/17/2023 3:27 PM FORESTRY TECHNICIAN EKG 12-LEAD, TRACING ONLY STAT 11/17/2023 3:13 PM FORESTRY TECHNICIAN documented in this encounter Results * CT Chest Pulmonary Embolism w Contrast (11/17/2023 6:29 PM FORESTRY TECHNICIAN) Anatomical Region Laterality Modality Chest, SUBRAD CT BODY, UMP CT CHEST Computed Tomography 11/17/2023 6:29 PM FORESTRY TECHNICIAN Impressions 11/17/2023 6:45 PM FORESTRY TECHNICIAN IMPRESSION: 1. ??No pulmonary embolism. 2. ??Previous granulomatous infection. 3. ??New 5 mm groundglass nodule in the right upper lobe is likely inflammatory. 4. ??Changes of autosomal dominant polycystic kidney disease. A few of the cysts are complex. A yearly follow-up could be performed. Nonobstructive stones left kidney. Narrative 11/17/2023 6:45 PM FORESTRY TECHNICIAN EXAM: CT CHEST PULMONARY EMBOLISM W CONTRAST LOCATION: [facility] DATE: 11/17/2023 INDICATION: Chest pain, elevated d-dimer. [...] CT CHEST PULMONARY EMBOLISM W CONTRAST LOCATION: [facility] DATE: 11/17/2023 INDICATION: Chest pain, elevated d-dimer. [...] Head Neck with Contrast (11/17/2023 6:28 PM FORESTRY TECHNICIAN) Anatomical Region Laterality Modality Head, SUBRAD CT NEURO, SUBRA D CT NEURO, UMP CT NEURO, RAD CT Computed Tomography 11/17/2023 6:28 PM FORESTRY TECHNICIAN Impressions 11/17/2023 7:08 PM FORESTRY TECHNICIAN IMPRESSION: HEAD CT: 1. ??No acute intracranial process. HEAD CTA: 1. ??Normal CTA [place]. NECK CTA: 1. ??Normal neck CTA. Narrative 11/17/2023 7:08 PM FORESTRY TECHNICIAN EXAM: CT HEAD W/O CONTRAST, CTA HEAD NECK W CONTRAST LOCATION: [facility] DATE/TIME: 11/17/2023 6:27 PM FORESTRY TECHNICIAN INDICATION: Headache, left arm numbness COMPARISON: No [...] aneurysm, or high flow vascular malformation. Standard [place] anatomy. POSTERIOR CIRCULATION: No stenosis/occlusion, [...] CONTRAST, CTA HEAD NECK W CONTRAST LOCATION: [facility] DATE/TIME: 11/17/2023 6:27 PM FORESTRY TECHNICIAN INDICATION: Headache, left arm numbness COMPARISON: No [...] stenosis/occlusion, aneurysm, or high flowvascular malformation. Standard [place] anatomy. POSTERIOR CIRCULATION: No stenosis/occlusion, [...] intracranial process. HEAD CTA: 1. Normal CTA [place]. NECK CTA: 1. Normal neck CTA. Jorge Roberts MD IMG CT ORDERABLES * CT Head w/o Contrast (11/17/2023 6:27 PM FORESTRY TECHNICIAN) Anatomical Region Laterality Modality Head, SUBRAD CT NEURO, SUBRA D CT NEURO, UMP CT NEURO, RAD CT Computed Tomography 11/17/2023 6:27 PM FORESTRY TECHNICIAN Impressions 11/17/2023 7:08 PM FORESTRY TECHNICIAN IMPRESSION: HEAD CT: 1. ??No acute intracranial process. HEAD CTA: 1. ??Normal CTA [place]. NECK CTA: 1. ??Normal neck CTA. Narrative 11/17/2023 7:08 PM FORESTRY TECHNICIAN EXAM: CT HEAD W/O CONTRAST, CTA HEAD NECK W CONTRAST LOCATION: [facility] DATE/TIME: 11/17/2023 6:27 PM FORESTRY TECHNICIAN INDICATION: Headache, left arm numbness COMPARISON: No [...] aneurysm, or high flow vascular malformation. Standard [place] anatomy. POSTERIOR CIRCULATION: No stenosis/occlusion, [...] CONTRAST, CTA HEAD NECK W CONTRAST LOCATION: [facility] DATE/TIME: 11/17/2023 6:27 PM FORESTRY TECHNICIAN INDICATION: Headache, left arm numbness COMPARISON: No [...] stenosis/occlusion, aneurysm, or high flowvascular malformation. Standard [place] anatomy. POSTERIOR CIRCULATION: No stenosis/occlusion, [...] intracranial process. HEAD CTA: 1. Normal CTA [place]. NECK CTA: 1. Normal neck CTA. Jorge Roberts MD [facility] CT ORDERABLES * Troponin T, High Sensitivity (now) (11/17/2023 5:30 PM FORESTRY TECHNICIAN) [facility] Troponin T, High Sensitivity 7 <=14 ng/L 11/17/2023 5:56 PM FORESTRY TECHNICIAN LABORATORY Comment: Either a High Sensitivity Troponin [...] Unknown Venipuncture / Unknown 11/17/2023 5:30 PM FORESTRY TECHNICIAN 11/17/2023 5:33 PM FORESTRY TECHNICIAN Jorge Roberts MD LAB - BLOOD ORDERABL ES Performing Organization Address [facility] Co de Phone Number [facility] [address] (1st floor, no room number) [place] [address], [facility] [phone] * (ABNORMAL) D dimer quantitative (11/17/2023 3:27 PM FORESTRY TECHNICIAN) [facility] D-Dimer Quantitative 0.54(H) 0.00 - 0.50 ug/mL FEU 11/17/2023 5:11 PM FORESTRY TECHNICIAN LABORATORY Blood STRUCTURE OF LEFT UPPER LIMB / Unknown Venipuncture / Unknown 11/17/2023 3:27 PM FORESTRY TECHNICIAN 11/17/2023 3:48 PM FORESTRY TECHNICIAN Narrative LABORATORY - 11/17/2023 5:11 PM FORESTRY TECHNICIAN This D-dimer assay is intended for use in conjunction with a clinical pretest probability assessment model to exclude pulmonary embolism (PE) and deep venous thrombosis (DVT) in outpatients suspected of PE or DVT. The cut-off value is 0.50 ug/mL FEU. Jorge Roberts MD LAB - BLOOD ORDERABL ES Performing Organization Address [facility]/ZIP Co de Phone Number [facility] [address] Lab (1st floor, no room number) [place] [address], [facility] [phone] * Extra Red Top Tube (11/17/2023 3:27 PM FORESTRY TECHNICIAN) Hold Specimen [facility] 11/17/2023 5:01 PM FORESTRY TECHNICIAN RH LABORATORY Blood STRUCTURE OF LEFT UPPER LIMB / Unknown Venipuncture / Unknown 11/17/2023 3:27 PM FORESTRY TECHNICIAN 11/17/2023 3:47 PM FORESTRY TECHNICIAN Jorge Roberts MD LAB - BLOOD ORDERABL ES [facility] [address] Lab (1st floor, no room number) [place] [address], [facility] [phone] * Extra Blue Top Tube (11/17/2023 3:27 PM FORESTRY TECHNICIAN) Hold Specimen [facility] 11/17/2023 5:01 PM FORESTRY TECHNICIAN RH LABORATORY Blood STRUCTURE OF LEFT UPPER LIMB / Unknown Venipuncture / Unknown 11/17/2023 3:27 PM FORESTRY TECHNICIAN 11/17/2023 3:48 PM FORESTRY TECHNICIAN Jorge Roberts MD LAB - BLOOD ORDERABL ES [facility] [address] Lab (1st floor, no room number) [place] [phone], [facility] [phone] * (ABNORMAL) CBC with platelets and differential (11/17/2023 3:27 PM FORESTRY TECHNICIAN) WBC Count 9.7 4.0 - 11.0 10e3/uL 11/17/2023 3:51 PM FORESTRY TECHNICIAN RH LABORATORY RBC Count 4.48 3.80 - 5.20 10e6/uL 11/17/2023 3:51 PM FORESTRY TECHNICIAN RH LABORATORY Hemoglobin 12.6 11.7 - 15.7 g/dL 11/17/2023 3:51 PM FORESTRY TECHNICIAN RH LABORATORY Hematocrit 41.1 35.0 - 47.0 % 11/17/2023 3:51 PM FORESTRY TECHNICIAN RH LABORATORY MCV 92 78 - 100 fL 11/17/2023 3:51 PM FORESTRY TECHNICIAN RH LABORATORY MCH 28.1 26.5 - 33.0 pg 11/17/2023 3:51 PM FORESTRY TECHNICIAN RH LABORATORY MCHC 30.7(L) 31.5 - 36.5 g/dL 11/17/2023 3:51 PM FORESTRY TECHNICIAN RH LABORATORY RDW 13.3 10.0 - 15.0 % 11/17/2023 3:51 PM FORESTRY TECHNICIAN RH LABORATORY Platelet Count 203 150 - 450 10e3/uL 11/17/2023 3:51 PM FORESTRY TECHNICIAN RH LABORATORY % Neutrophils 61 % 11/17/2023 3:51 PM FORESTRY TECHNICIAN RH LABORATORY % Lymphocytes 28 % 11/17/2023 3:51 PM FORESTRY TECHNICIAN RH LABORATORY % Monocytes 5 % 11/17/2023 3:51 PM FORESTRY TECHNICIAN RH LABORATORY % Eosinophils 5 % 11/17/2023 3:51 PM FORESTRY TECHNICIAN RH LABORATORY % Basophils 1 % 11/17/2023 3:51 PM FORESTRY TECHNICIAN RH LABORATORY % Immature Granulocytes 0 % 11/17/2023 3:51 PM FORESTRY TECHNICIAN RH LABORATORY NRBCs per 100 WBC 0 <1 /100 024 3:51 PM FORESTRY TECHNICIAN RH LABORATORY Absolute Neutrophils 6.0 1.6 - 8.3 10e3/uL 11/17/2023 3:51 PM FORESTRY TECHNICIAN RH LABORATORY Absolute Lymphocytes 2.7 0.8 - 5.3 10e3/uL 11/17/2023 3:51 PM FORESTRY TECHNICIAN RH LABORATORY Absolute Monocytes 0.5 0.0 - 1.3 10e3/uL 11/17/2023 3:51 PM FORESTRY TECHNICIAN RH LABORATORY Absolute Eosinophils 0.5 0.0 - 0.7 10e3/uL 11/17/2023 3:51 PM FORESTRY TECHNICIAN RH LABORATORY Absolute Basophils 0.1 0.0 - 0.2 10e3/uL 11/17/2023 3:51 PM FORESTRY TECHNICIAN RH LABORATORY Absolute Immature Granulocytes 0.0 <=0.4 10e3/uL 11/17/2023 3:51 PM FORESTRY TECHNICIAN RH LABORATORY Absolute NRBCs 0.0 10e3/uL 11/17/2023 3:51 PM FORESTRY TECHNICIAN RH LABORATORY Blood STRUCTURE OF LEFT UPPER LIMB / Unknown Venipuncture / Unknown 11/17/2023 3:27 PM FORESTRY TECHNICIAN 11/17/2023 3:48 PM FORESTRY TECHNICIAN Jorge Roberts MD LAB - BLOOD ORDERABL ES RH LABORATORY [facility] [address] Lab (1st floor, no room number) [place] [address], [facility] [phone] * Troponin T, High Sensitivity (now) (11/17/2023 3:27 PM FORESTRY TECHNICIAN) Troponin T, High Sensitivity 7 <=14 ng/L 11/17/2023 4:11 PM FORESTRY TECHNICIAN LABORATORY Comment: Either a High Sensitivity Troponin [...] follow-up, or urgent outpatient provocative testing. Blood STRUCTURE OF LEFT UPPER LIMB / Unknown Venipuncture / Unknown 11/17/2023 3:27 PM FORESTRY TECHNICIAN 11/17/2023 3:47 PM FORESTRY TECHNICIAN Jorge Roberts MD LAB - BLOOD ORDERABL ES [facility] [address] [facility], no room number) [place] [address], [facility] [phone] * (ABNORMAL) Basic metabolic panel (BMP) (11/17/2023 3:27 PM FORESTRY TECHNICIAN) Sodium 143 135 - 145 mmol/L 11/17/2023 4:11 PM FORESTRY TECHNICIAN LABORATORY Comment:Reference intervals for this test were updated on 07/11/2023 to more accurately reflect our healthy population. There may be differences in the flagging of prior results with similar values performed with this method. Interpretation of those prior results can be made in the context of the updated reference intervals. Potassium 3.8 3.4 - 5.3 mmol/L 11/17/2023 4:11 PM [facility] Chloride 112(H) 98 - 107 mmol/L 11/17/2023 4:11 PM [facility] Carbon Dioxide (CO2) 19(L) 22 - 29 mmol/L 11/17/2023 4:11 PM [facility] Anion Gap 12 7 - 15 mmol/L 11/17/2023 4:11 PM [facility] Urea Nitrogen 29.4(H) 6.0 - 20.0 mg/dL 11/17/2023 4:11 PM [facility] Creatinine 1.87(H) 0.51 - 0.95 mg/dL 11/17/2023 4:11 PM [facility] GFR Estimate 34(L) >60 mL/min/1. 73m2 11/17/2023 4:11 PM [facility] Calcium 9.0 8.6 - 10.0 mg/dL 11/17/2023 4:11 PM [facility] Glucose 96 70 - 99 mg/dL 11/17/2023 4:11 PM [facility] Blood STRUCTURE OF LEFT UPPER LIMB / Unknown Venipuncture / Unknown 11/17/2023 3:27 PM FORESTRY TECHNICIAN 11/17/2023 3:47 PM FORESTRY TECHNICIAN Jorge Roberts MD LAB - BLOOD ORDERABL ES LABORATORY [facility] [address] Lab (1st floor, no room number) [place] [address], [facility] [phone] * EKG 12 lead (11/17/2023 3:13 PM FORESTRY TECHNICIAN) Systolic Blood Pressure mmHg RADIOLOGY RESULTS Diastolic Blood Pressure mmHg RADIOLOGY RESULTS Ventricular Rate 80 BPM RAD IOLOGY RESULTS Atrial Rate 80 BPM RADIOLOG Y RESULTS [place] Interval 164 ms RADIOLOG Y RESULTS QRS Duration 78 ms RADIOLO GY RESULTS QT 374 ms RADIOLOGY RESULTS QTc 431 ms RADIOLOGY RESULTS P [place] 66 degrees RADIOLOGY RESULTS R AXIS 43 degrees RADIOLOGY RESULTS T [place] 57 degrees RADIOLOGY RESULTS Interpretation ECG Sinus rhythm Normal ECG When compared with ECG of 11-JUN-2020 13:48, Vent. rate has increased BY ??31 BPM Unconfirmed report - interpretation of this ECG is computer generated - see medical record for final interpretation Confirmed by - EMERGENCY ROOM, PHYSICIAN ([id number]), editor producer SHAWN RENDON ([id number]) on 11/17/2023 3:38:15 PM RADIOLOGY RESULTS 11/17/2023 3:13 PM FORESTRY TECHNICIAN 11/17/2023 3:38 PM FORESTRY TECHNICIAN Jorge Roberts MD ECG ORDERABLES RADIOLOGY RESULTS documented in this encounter Visit Diagnoses Diagnosis Pulmonary nodule Solitary pulmonary nodule Progressive hearing loss of left ear Left ear pain Otalgia, unspecified Nonspecific chest pain Elevated blood pressure reading without diagnosis of hypertension documented in this encounter Administered Medications Inactive Administered Medications - up to 3 most recent administrations Medication Order MAR Action Action Date Dose Rate Site CT Scan Flush Intravenous, 100 mL, ONCE, On Mon11/17/23 at 1810, For 1 dose, This entry is for use by Radiology to intermittently used as a flush in patients receiving a CT scan. $Given 11/17/2023 6:10 PM FORESTRY TECHNICIAN 90 mLs iopamidol (ISOVUE-370) solution 500 mL 500 mL, Intravenous, ONCE, On Mon11/17/23 at 1810, For 1 dose $Given 11/17/2023 6:10 PM FORESTRY TECHNICIAN 100 mLs documented in this encounter Active and Recently Administered Medications Times are shown in FORESTRY TECHNICIAN. Scheduled Medication Order 11/15/2023 11/16/2023 11/17/2023 CT Scan Flush (COMPLETED) Intravenous, 100 mL, ONCE, On Mon11/17/23 at 1810, For 1 dose, This entry is for use by Radiology to intermittently used as a flush in patients receiving a CT scan. 1810 ($Given - Provi opal: Mimi A Lamey) iopamidol (ISOVUE-370) solution 500 mL (COMPLETED) 500 mL, Intravenous, ONCE, On Mon11/17/23 at 1810, For 1 dose 1810 ($Given - Provi opal: Mimi A Lamey) documented in this encounter Care Teams Ginger Farmer Relationship Specialty Start Date End Date Leon Han PCP - General Family Practice 11/5/19 documented as of this encounter
--- OUTSIDE RECORDS SUMMARY | 2024-01-25 17:42 | XMS_ITS | Encounter Summary ---
Author Name Unknown Organization [place] Address [address] [place] [address] Care Team Providers Care Custom Wood Stair Builder Name Role Phone Leon Han Primary Care Provider [phone] Encounter Details Date Type Department Care Team (Latest Contact Info) Description 11/17/2023 Travel Social History Tobacco Use Types Packs/Day Years [...] as of this encounter Plan of Treatment Not on file documented as of this encounter Visit Diagnoses Not on filedocumented in this encounter Care Teams Custom Wood Stair Builder Relationship Specialty Start Date End Date Leon Han PCP - General Family Practice 08/20/19 documented as of this encounter
--- OUTSIDE RECORDS SUMMARY | 2024-01-25 17:42 | XMS_ITS | Encounter Summary ---
Author Name Unknown Organization [place] Address [address] [place] [address] Care Team Providers Care High Wire Artist Name Role Phone Leon Han Primary Care Provider [phone] Alissa Desouza MD Unavailable [phone] Encounter Details Date Type Department Care Team ([facility] Contact Info) Description 08/06/2012 Telephone [facility] Behavioral Health Intake [address] [place] [phone] Generic, Behavioral Intake, Social History Tobacco Use Types Packs/Day Years Used Date Smoking Tobacco: Never Assessed Sex and Gender Information Value Date Recorded Sex Assigned at Not on file Gender Identity Not on file Sexual Orientation Not on file documented as of this encounter Miscellaneous Notes * Telephone Encounter - Zia Rodrigues - 08/06/2012 2:56 PM CDT 08/06 Pt has [facility] mmsi not local p. p can not auth eval per mmsi once eval is completed it is sent with mmsi form to them and they will auth. Form sent to [facility] . * Telephone Encounter - Royal Amador - 08/06/2012 10:50 AM CDT Referral from primary care clinic in [place]. Alcohol/narcotic/adderall use. No previous per referral. Drinking daily, advil/percocet/vicodin. Is not on any meds although the md today gave her some ativan. Lives with her spouse and 3 kids. Client will call back to schedule jose potter documented in this encounter Plan of Treatment Not on file documented as of this encounter Visit Diagnoses Not on filedocumented in this encounter Care Teams High Wire Artist Relationship Specialty Start Date End Date Leon Han PCP - General Family Practice 08/20/19 Alissa Desouza MD [address] [place] [address] [id number] Assigned Heart and Vascular Provider 08/07/20 10/23/21 documented as of this encounter
--- OUTSIDE RECORDS SUMMARY | 2024-01-25 17:42 | XMS_ITS | Encounter Summary ---
Author Name Unknown Organization [place] Address [address] [place] [address] Care Team Providers Care Nike Athlete Name Role Phone Leon Han Primary Care Provider Alissa Desouza MD Unavailable [phone] Encounter Details Date Type Department Care Team ([facility] st Contact Info) Description 01/07/2013 Telephone [facility] Behavioral Health Intake [address] [place] [phone] Generic, Behavioral IntakeMD Social History Tobacco Use Types Packs/Day Years Used Date Smoking Tobacco: Never Assessed Sex and Gender Information Value Date Recorded Sex Assigned at Not on file Gender Identity Not on file Sexual Orientation Not on file documented as of this encounter Miscellaneous Notes * Telephone Encounter - Royal Amador - 01/07/2013 2:01 PM CDT Calling regarding the gambling program. No previous gambling programming. Has had cd treatment for alcohol. Will call back. kaeddie documented in this encounter Plan of Treatment Not on file documented as of this encounter Visit Diagnoses Not on filedocumented in this encounter Care Teams Nike Athlete Relationship Specialty Start Date End Date Leon Han PCP - General Family Practice 08/20/19 Alissa Desouza MD [address] [place] [address] [id number] Assigned Heart and Vascular Provider 08/07/20 10/23/21 documented as of this encounter
--- OUTSIDE RECORDS SUMMARY | 2024-01-25 17:42 | XMS_ITS | Referral Summary ---
Author Name Unknown Organization [place] Address [address] [place] [address] Care Team Providers Care Sample Body Builder Name Role Phone Leon Han Primary Care Provider [phone] Encounters Date Type Department Care Team Description 11/17/2023 Travel 11/17/2023 3:21 PM BURNISHING MACHINE OPERATOR - 11/17/2023 7:50 PM [facility] [address] [place] [address] Jorge Roberts MD Pulmonary nodule; Progressive hearing loss of left ear; Left ear pain; Nonspecific chest pain; Elevated blood pressure reading without diagnosis of hypertension Discharge Disposition: Home or Self Care from Last 3 Months Allergies Active Allergy Reactions Criticality Noted Date [...] 30 mL 06/11/2020 Active vitamin D2 (ERGOCALCIFEROL) 54761 units (1250 mcg) capsule Take 50,000 Units by mouth once a week X 8 weeks Active Active Problems Problem Noted Date Diagnosed Date Abscess of postoperative wound of abdominal wall 08/21/2019 Pseudotumor cerebri 08/21/2019 Fibromyalgia 08/21/2019 Autosomal dominant polycystic kidney disease Essential hypertension, benign 01/15/2007 Gastrointestinal Crohn's disease 01/15/2007 Confusion and disorientation Social History Tobacco Use Types Packs/Day Years [...] Comments Blood Pressure 134/96 11/17/2023 7:42 PM BURNISHING MACHINE OPERATOR Pulse 56 11/17/2023 7:42 PM BURNISHING MACHINE OPERATOR Temperature 36.6 ??C (97.9 ??F) 11/17/2023 3:19 PM CS T Respiratory Rate 18 11/17/2023 7:42 PM BURNISHING MACHINE OPERATOR Oxygen Saturation 99% 11/17/2023 7:42 PM BURNISHING MACHINE OPERATOR Inhaled Oxygen Concentration - - Weight 104.3 kg (229 lb 15 oz) 11/17/2023 3:21 P M BURNISHING MACHINE OPERATOR Height 167.6 cm (5' 6) 11/17/2023 3:19 PM BURNISHING MACHINE OPERATOR Body Mass Index 37.11 11/17/2023 3:19 PM BURNISHING MACHINE OPERATOR Plan of Treatment Not on file Procedures Procedure Name Priority Date/Time Associated Diagnosis Comments CT CHEST PULMONARY EMBOLISM W CONTRAST STAT 11/17/2023 6:29 PM BURNISHING MACHINE OPERATOR CTA HEAD NECK W CONTRAST STAT 11/17/2023 6:28 PM BURNISHING MACHINE OPERATOR CT HEAD W/O CONTRAST STAT 11/17/2023 6:27 PM BURNISHING MACHINE OPERATOR TROPONIN T, HIGH SENSITIVITY STAT 11/17/2023 5:30 PM BURNISHING MACHINE OPERATOR CBC WITH PLATELETS & DIFFERENTIAL STAT 11/17/2023 3:27 PM BURNISHING MACHINE OPERATOR D DIMER QUANTITATIVE STAT 11/17/2023 3:27 PM BURNISHING MACHINE OPERATOR EXTRA RED TOP TUBE STAT 11/17/2023 3: 27 PM BURNISHING MACHINE OPERATOR EXTRA BLUE TOP TUBE STAT 11/17/2023 3 :27 PM BURNISHING MACHINE OPERATOR CBC WITH PLATELETS AND DIFFERENTIAL STAT 11/17/2023 3:27 PM BURNISHING MACHINE OPERATOR EXTRA TUBE STAT 11/17/2023 3:27 PM BURNISHING MACHINE OPERATOR TROPONIN T, HIGH SENSITIVITY STAT 11/17/2023 3:27 PM BURNISHING MACHINE OPERATOR BASIC METABOLIC PANEL STAT 11/17/2023 3:27 PM BURNISHING MACHINE OPERATOR EKG 12-LEAD, TRACING ONLY STAT 11/17/2023 3:13 PM BURNISHING MACHINE OPERATOR from Last 3 Months Results * CT Chest Pulmonary Embolism w Contrast (11/17/2023 6:29 PM BURNISHING MACHINE OPERATOR) Anatomical Region Laterality Modality Chest, SUBRAD CT BODY, UMP CT CHEST Computed Tomography 11/17/2023 6:29 PM BURNISHING MACHINE OPERATOR Impressions 11/17/2023 6:45 PM BURNISHING MACHINE OPERATOR IMPRESSION: 1. ??No pulmonary embolism. 2. ??Previous granulomatous infection. 3. ??New 5 mm groundglass nodule in the right upper lobe is likely inflammatory. 4. ??Changes of autosomal dominant polycystic kidney disease. A few of the cysts are complex. A yearly follow-up could be performed. Nonobstructive stones left kidney. Narrative 11/17/2023 6:45 PM BURNISHING MACHINE OPERATOR EXAM: CT CHEST PULMONARY EMBOLISM W CONTRAST LOCATION: [facility] DATE: 11/17/2023 INDICATION: Chest pain, elevated d-dimer. [...] CT CHEST PULMONARY EMBOLISM W CONTRAST LOCATION: [facility] DATE: 11/17/2023 INDICATION: Chest pain, elevated d-dimer. [...] performed. Nonobstructivestones left kidney. Jorge Roberts MD [facility] [place] ORDERABLES * CTA Head Neck with Contrast (11/17/2023 6:28 PM BURNISHING MACHINE OPERATOR) Anatomical Region Laterality Modality Head, SUBRAD CT NEURO, SUBRA D CT NEURO, UMP CT NEURO, RAD CT Computed Tomography 11/17/2023 6:28 PM BURNISHING MACHINE OPERATOR Impressions 11/17/2023 7:08 PM BURNISHING MACHINE OPERATOR IMPRESSION: HEAD CT: 1. ??No acute intracranial process. HEAD CTA: 1. ??Normal CTA [place]. NECK CTA: 1. ??Normal neck CTA. Narrative 11/17/2023 7:08 PM BURNISHING MACHINE OPERATOR EXAM: CT HEAD W/O CONTRAST, CTA HEAD NECK W CONTRAST LOCATION: [facility] DATE/TIME: 11/17/2023 6:27 PM BURNISHING MACHINE OPERATOR INDICATION: Headache, left arm numbness COMPARISON: No [...] aneurysm, or high flow vascular malformation. Standard [place] anatomy. POSTERIOR CIRCULATION: No stenosis/occlusion, [...] great vessels. NONVASCULAR STRUCTURES: Unremarkable. Procedure Note aNsim Madrid MD - 11/17/2023 EXAM: CT HEAD W/O CONTRAST, CTA HEAD NECK W CONTRAST LOCATION: [facility] DATE/TIME: 11/17/2023 6:27 PM BURNISHING MACHINE OPERATOR INDICATION: Headache, left arm numbness COMPARISON: No [...] stenosis/occlusion, aneurysm, or high flowvascular malformation. Standard [place] anatomy. POSTERIOR CIRCULATION: No stenosis/occlusion, [...] intracranial process. HEAD CTA: 1. Normal CTA [place]. NECK CTA: 1. Normal neck CTA. Jorge Roberts MD [facility] [place] ORDERABLES * CT Head w/o Contrast (11/17/2023 6:27 PM BURNISHING MACHINE OPERATOR) Anatomical Region Laterality Modality Head, SUBRAD CT NEURO, SUBRA D CT NEURO, UMP CT NEURO, RAD CT Computed Tomography 11/17/2023 6:27 PM BURNISHING MACHINE OPERATOR Impressions 11/17/2023 7:08 PM BURNISHING MACHINE OPERATOR IMPRESSION: HEAD CT: 1. ??No acute intracranial process. HEAD CTA: 1. ??Normal CTA [place]. NECK CTA: 1. ??Normal neck CTA. Narrative 11/17/2023 7:08 PM BURNISHING MACHINE OPERATOR EXAM: CT HEAD W/O CONTRAST, CTA HEAD NECK W CONTRAST LOCATION: [facility] DATE/TIME: 11/17/2023 6:27 PM BURNISHING MACHINE OPERATOR INDICATION: Headache, left arm numbness COMPARISON: No [...] aneurysm, or high flow vascular malformation. Standard [place] anatomy. POSTERIOR CIRCULATION: No stenosis/occlusion, [...] CONTRAST, CTA HEAD NECK W CONTRAST LOCATION: [facility] DATE/TIME: 11/17/2023 6:27 PM BURNISHING MACHINE OPERATOR INDICATION: Headache, left arm numbness COMPARISON: No [...] stenosis/occlusion, aneurysm, or high flowvascular malformation. Standard [place] anatomy. POSTERIOR CIRCULATION: No stenosis/occlusion, [...] intracranial process. HEAD CTA: 1. Normal CTA [place]. NECK CTA: 1. Normal neck CTA. Jorge Roberts MD [facility] [place] ORDERABLES * Troponin T, High Sensitivity (now) (11/17/2023 5:30 PM BURNISHING MACHINE OPERATOR) Only the most recent of2 resultswithin the time period is included. Troponin T, High Sensitivity 7 <=14 ng/L 11/17/2023 5:56 PM BURNISHING MACHINE OPERATOR LABORATORY Comment: Either a High Sensitivity Troponin [...] Unknown Venipuncture / Unknown 11/17/2023 5:30 PM BURNISHING MACHINE OPERATOR 11/17/2023 5:33 PM BURNISHING MACHINE OPERATOR Jorge Roberts MD LAB - BLOOD ORDERABL ES Performing Organization Address City/[facility]/ZIP Co de Phone Number [facility] [address] Lab (1st floor, no room number) [place] [address], [facility] [phone] * Extra Red Top Tube (11/17/2023 3:27 PM BURNISHING MACHINE OPERATOR) Pathologist [facility] Hold Specimen JIC 11/17/2023 5:01 PM BURNISHING MACHINE OPERATOR LABORATORY Blood STRUCTURE OF LEFT UPPER LIMB / Unknown Venipuncture / Unknown 11/17/2023 3:27 PM BURNISHING MACHINE OPERATOR 11/17/2023 3:47 PM BURNISHING MACHINE OPERATOR Jorge Roberts MD LAB - BLOOD ORDERABL ES [facility] Lab [address] Lab (1st floor, no room number) [place] [address], [facility] [phone] * Extra Blue Top Tube (11/17/2023 3:27 PM BURNISHING MACHINE OPERATOR) Hold Specimen [facility] 11/17/2023 5:01 PM BURNISHING MACHINE OPERATOR RH LABORATORY Blood STRUCTURE OF LEFT UPPER LIMB / Unknown Venipuncture / Unknown 11/17/2023 3:27 PM BURNISHING MACHINE OPERATOR 11/17/2023 3:48 PM BURNISHING MACHINE OPERATOR Jorge Roberts MD LAB - BLOOD ORDERABL ES RH LABORATORY [facility] Acute Care Lab [address] Lab (1st floor, no room number) [place] [address] [phone] * (ABNORMAL) CBC with platelets and differential (11/17/2023 3:27 PM BURNISHING MACHINE OPERATOR) WBC Count 9.7 4.0 - 11.0 10e3/uL 11/17/2023 3:51 PM BURNISHING MACHINE OPERATOR [facility] LABORATORY RBC Count 4.48 3.80 - 5.20 10e6/uL 11/17/2023 3:51 PM BURNISHING MACHINE OPERATOR RH LABORATORY Hemoglobin 12.6 11.7 - 15.7 g/dL 11/17/2023 3:51 PM BURNISHING MACHINE OPERATOR [facility] LABORATORY Hematocrit 41.1 35.0 - 47.0 % 11/17/2023 3:51 PM BURNISHING MACHINE OPERATOR RH LABORATORY MCV 92 78 - 100 fL 11/17/2023 3:51 PM BURNISHING MACHINE OPERATOR [facility] LABORATORY MCH 28.1 26.5 - 33.0 pg 11/17/2023 3:51 PM BURNISHING MACHINE OPERATOR RH LABORATORY MCHC 30.7(L) 31.5 - 36.5 g/dL 11/17/2023 3:51 PM BURNISHING MACHINE OPERATOR [facility] LABORATORY RDW 13.3 10.0 - 15.0 % 11/17/2023 3:51 PM BURNISHING MACHINE OPERATOR [facility] LABORATORY Platelet Count 203 150 - 450 10e3/uL 11/17/2023 3:51 PM BURNISHING MACHINE OPERATOR [facility] LABORATORY % Neutrophils 61 % 11/17/2023 3:51 PM BURNISHING MACHINE OPERATOR [facility] LABORATORY % Lymphocytes 28 % 11/17/2023 3:51 PM BURNISHING MACHINE OPERATOR RH LABORATORY % Monocytes 5 % 11/17/2023 3:51 PM BURNISHING MACHINE OPERATOR [facility] LABORATORY % Eosinophils 5 % 11/17/2023 3:51 PM BURNISHING MACHINE OPERATOR [facility] LABORATORY % Basophils 1 % 11/17/2023 3:51 PM BURNISHING MACHINE OPERATOR [facility] LABORATORY % Immature Granulocytes 0 % 11/17/2023 3:51 PM BURNISHING MACHINE OPERATOR RH LABORATORY NRBCs per 100 WBC 0 <1 /100 024 3:51 PM BURNISHING MACHINE OPERATOR [facility] LABORATORY Absolute Neutrophils 6.0 1.6 - 8.3 10e3/uL 11/17/2023 3:51 PM BURNISHING MACHINE OPERATOR [facility] LABORATORY Absolute Lymphocytes 2.7 0.8 - 5.3 10e3/uL 11/17/2023 3:51 PM BURNISHING MACHINE OPERATOR RH LABORATORY Absolute Monocytes 0.5 0.0 - 1.3 10e3/uL 11/17/2023 3:51 PM BURNISHING MACHINE OPERATOR RH LABORATORY Absolute Eosinophils 0.5 0.0 - 0.7 10e3/uL 11/17/2023 3:51 PM BURNISHING MACHINE OPERATOR RH LABORATORY Absolute Basophils 0.1 0.0 - 0.2 10e3/uL 11/17/2023 3:51 PM BURNISHING MACHINE OPERATOR RH LABORATORY Absolute Immature Granulocytes 0.0 <=0.4 10e3/uL 11/17/2023 3:51 PM BURNISHING MACHINE OPERATOR RH LABORATORY Absolute NRBCs 0.0 10e3/uL 11/17/2023 3:51 PM BURNISHING MACHINE OPERATOR RH LABORATORY Blood STRUCTURE OF LEFT UPPER LIMB / Unknown Venipuncture / Unknown 11/17/2023 3:27 PM BURNISHING MACHINE OPERATOR 11/17/2023 3:48 PM BURNISHING MACHINE OPERATOR Jorge Roberts MD LAB - BLOOD ORDERABL ES [facility] LABORATORY [facility] Acute Care Lab [address] Lab (1st floor, no room number) [place] [address], [facility] [phone] * (ABNORMAL) D dimer quantitative (11/17/2023 3:27 PM BURNISHING MACHINE OPERATOR) [facility] D-Dimer Quantitative 0.54(H) 0.00 - 0.50 ug/mL FEU 11/17/2023 5:11 PM BURNISHING MACHINE OPERATOR RH LABORATORY Blood STRUCTURE OF LEFT UPPER LIMB / Unknown Venipuncture / Unknown 11/17/2023 3:27 PM BURNISHING MACHINE OPERATOR 11/17/2023 3:48 PM BURNISHING MACHINE OPERATOR Narrative LABORATORY - 11/17/2023 5:11 PM BURNISHING MACHINE OPERATOR This D-dimer assay is intended for use in conjunction with a clinical pretest probability assessment model to exclude pulmonary embolism (PE) and deep venous thrombosis (DVT) in outpatients suspected of PE or DVT. The cut-off value is 0.50 ug/mL FEU. Jorge Roberts MD LAB - BLOOD ORDERABL ES [facility] LABORATORY [facility] Acute Care Lab [address] [facility] Lab (1st floor, no room number) [place] [address], [facility] [phone] * (ABNORMAL) Basic metabolic panel (BMP) (11/17/2023 3:27 PM BURNISHING MACHINE OPERATOR) [facility] Sodium 143 135 - 145 mmol/L 11/17/2023 4:11 PM [facility] Comment:Reference intervals for this test were updated on 07/11/2023 to more accurately reflect our healthy population. There may be differences in the flagging of prior results with similar values performed with this method. Interpretation of those prior results can be made in the context of the updated reference intervals. Potassium 3.8 3.4 - 5.3 mmol/L 11/17/2023 4:11 PM [facility] Chloride 112(H) 98 - 107 mmol/L 11/17/2023 4:11 PM [facility] Carbon Dioxide (CO2) 19(L) 22 - 29 mmol/L 11/17/2023 4:11 PM [facility] Anion Gap 12 7 - 15 mmol/L 11/17/2023 4:11 PM [facility] Urea Nitrogen 29.4(H) 6.0 - 20.0 mg/dL 11/17/2023 4:11 PM [facility] Creatinine 1.87(H) 0.51 - 0.95 mg/dL 11/17/2023 4:11 PM [facility] GFR Estimate 34(L) >60 mL/min/1. 73m2 11/17/2023 4:11 PM [facility] Calcium 9.0 8.6 - 10.0 mg/dL 11/17/2023 4:11 PM BURNISHING MACHINE OPERATOR [facility] LABORATORY Glucose 96 70 - 99 mg/dL 11/17/2023 4:11 PM BURNISHING MACHINE OPERATOR [facility] LABORATORY Blood STRUCTURE OF LEFT UPPER LIMB / Unknown Venipuncture / Unknown 11/17/2023 3:27 PM BURNISHING MACHINE OPERATOR 11/17/2023 3:47 PM BURNISHING MACHINE OPERATOR Jorge Roberts MD LAB - BLOOD ORDERABL ES [facility] LABORATORY [facility] Acute Care Lab [address] Lab (1st floor, no room number) [place] [address], [facility] [phone] * EKG 12 lead (11/17/2023 3:13 PM BURNISHING MACHINE OPERATOR) Systolic Blood Pressure mmHg RADIOLOGY RESULTS Diastolic Blood Pressure mmHg RADIOLOGY RESULTS Ventricular Rate 80 BPM RAD IOLOGY RESULTS Atrial Rate 80 BPM RADIOLOG Y RESULTS [place] Interval 164 ms RADIOLOG Y RESULTS QRS Duration 78 ms RADIOLO GY RESULTS QT 374 ms RADIOLOGY RESULTS QTc 431 ms RADIOLOGY RESULTS P [place] 66 degrees RADIOLOGY RESULTS R AXIS 43 degrees RADIOLOGY RESULTS T [place] 57 degrees RADIOLOGY RESULTS Interpretation ECG Sinus rhythm Normal ECG When compared with ECG of 11-JUN-2020 13:48, Vent. rate has increased BY ??31 BPM Unconfirmed report - interpretation of this ECG is computer generated - see medical record for final interpretation Confirmed by - EMERGENCY ROOM, PHYSICIAN ([id number]), continuity editor SHAWN RENDON ([id number]) on 11/17/2023 3:38:15 PM RADIOLOGY RESULTS 11/17/2023 3:13 PM BURNISHING MACHINE OPERATOR 11/17/2023 3:38 PM BURNISHING MACHINE OPERATOR Jorge Roberts MD ECG ORDERABLES RADIOLOGY RESULTS from Last 3 Months Advance Directives For more information, please contact: [phone] * Full Code (Latest Code Status on File) Date Activated Date Inactivated Comments 08/24/2019 1:11 PM 06/11/2020 12:25 PM Per tao s documentation. Question Answer Comments Code status determined by: Other (please documen t) * Full Code Date Activated Date Inactivated Comments 08/21/2019 3:26 AM 08/24/2019 1:11 PM Question Answer Comments Code status determined by: Discussion with siri nt/legal decision maker Care Teams Sample Body Builder Relationship Specialty Start Date End Date Leon Han PCP - General Family Practice 08/20/19
[2024-01-25 18:06] LABS: Chloride* 113 mmol/L (96-114); Potassium* 3.9 mmol/L (3.6-5.1); Sodium* 141 mmol/L (135-149)
[2024-01-25 18:09] LABS: Anion Gap 10 mEq/L (7-15); Blood Urea Nitrogen* 24 mg/dL (5-24); Calcium* 9.2 mg/dL (8.4-10.6); Carbon Dioxide* 18 mmol/L (20-32); Creatinine* 1.7 mg/dL (0.5-1.5); Estimated Glomerular Filt Rate 38 ml/min; Glucose* 86 mg/dL (60-115)
[2024-01-25 19:07] LABS: Iron* 52 ug/dL (37-170)
[2024-01-25 19:17] LABS: Percent Iron Saturation 13 % (20-50); Total Iron Binding Capacity 403 ug/dL (265-497)
== END 2024-01-25 17:40 | disposition home or self-care (01) ==
LOC: NPINS 17:39
PROVIDERS: PCP Family Medicine; Visit Provider Internal Medicine Nephrology
DX: N18.32 Chronic kidney disease, stage 3b (principal); E61.1 Iron deficiency
CPT/HCPCS: 80048; 82728; 83540; 83550

== ENCOUNTER 2024-01-26 15:33 | Outpatient (REF) | payer MEDICAID, SELFPAY ==
--- OUTSIDE RECORDS SUMMARY | 2024-01-26 15:38 | XMS_ITS | Clinical Summary ---
Author Name Unknown Organization [facility] Katie reynolds Address [address] [place] [address] Phone Care Team Providers Care Networker Name Role Phone Calixto Han MD Primary [...] Type Department Care Team Description 01/19/2024 Refill [facility] [address] [place] [address] Dianna Lara, KHADIJAH 01/01/2024 Telephone [facility] [address] [place] [address] Taylor Torres, KHADIJAH 12/14/2023 Orders Only [facility] [address] [place] [address] Mk Mccracken MD from Last 3 Months [...] Comments Blood Pressure 156/93 12/14/2023 9:13 AM EVAPORATOR SUPERVISOR Pulse 57 12/14/2023 9:13 AM EVAPORATOR SUPERVISOR Temperature 36.9 ??C (98.4 ??F) 12/14/2023 9:13 AM CS T Respiratory Rate - - Oxygen Saturation - - Inhaled Oxygen Concentration - - Weight 100 kg (221 lb 6.4 oz) 12/14/2023 9:13 AM EVAPORATOR SUPERVISOR Height 167.6 cm (5' 6) 12/14/2023 9:13 AM EVAPORATOR SUPERVISOR Body Mass Index 35.73 12/14/2023 9:13 AM EVAPORATOR SUPERVISOR Plan of Treatment Upcoming Encounters Date Type Department Care Team (Late st Contact Info) Description 04/04/2024 10:30 AM MDT Office Visit [facility] [address] [facility] [address] [place], [place] [address] Mk Mccracken MD [address] [facility] [address] [place], [place] [id number] Health Maintenance Due Date Last Done Comments Pneumococcal PPSV23 Highest Risk Adult (1 of 3 - PCV13) 2001 Influenza Vaccine (Season Ended) 2024 07/01/2013, 07/06/2012, 09/17/2010 Procedures Procedure Name Priority Date/Time Associated Diagnosis Comments TOTAL PROTEIN W/ CREATININE, URINE, RANDOM Routine 12/14/2023 9:49 AM EVAPORATOR SUPERVISOR VITAMIN D, 25-HYDROXY, SERUM Routine 12/14/2023 9:49 AM EVAPORATOR SUPERVISOR PTH INTACT W/O CALCIUM, SERUM Routine 12/14/2023 9:49 AM EVAPORATOR SUPERVISOR FERRITIN, SERUM Routine 12/14/2023 9:49 AM EVAPORATOR SUPERVISOR CBC (INCLUDES DIFFERENTIAL/PLATEL ETS) Routine 12/14/2023 9:49 AM EVAPORATOR SUPERVISOR URINALYSIS, COMPLETE Routine 12/14/2023 9:49 AM EVAPORATOR SUPERVISOR RENAL FUNCTION PANEL (RFP) Routine 12/14/2023 9:49 AM EVAPORATOR SUPERVISOR IRON AND TIBC, SERUM Routine 12/14/2023 9:49 AM EVAPORATOR SUPERVISOR URIC ACID, SERUM Routine 12/14/2023 9:49 AM EVAPORATOR SUPERVISOR from Last 3 Months Results * Total Protein w/ Creatinine, Urine, Random (12/14/2023 9:49 AM EVAPORATOR SUPERVISOR) Creatinine, Urine 56 20 - 275 mg/dL [facility] ([facility]) Protein/Creatin ine, Urine 107 24 - 184 mg/g creat [facility]) Protein/Creatin ine, Urine 0.107 0.024 - 0.184 mg/mg creat [facility]) Protein, Urine 6 5 - 24 mg/dL [facility]) 12/14/2023 9:49 AM EVAPORATOR SUPERVISOR 12/14/2023 9:50 AM EVAPORATOR SUPERVISOR Narrative Resulting Agency Comment Performing Organization Information: ?Site ID: ?Name: [facility] ?Address: [address] [place] [phone] ?Director: Harshad Frias Mk Mccracken MD LAB URINE ORDERABLES [facility] * (ABNORMAL) Vitamin D, 25-Hydroxy, Serum (12/14/2023 9:49 AM EVAPORATOR SUPERVISOR) Pathologist [facility] Calcidiol, Serum/Plasma 27(L) 30 - 100 ng/mL [...] D, (D2,D3), LC/MS/MS is recommended: order code 55159 (patients >2yrs). See Note 1 Note 1 For additional information, please refer to http://education.[employer]/faq/HFW928 (This link is being provided for informational/ educational purposes only.) 12/14/2023 9:49 AM EVAPORATOR SUPERVISOR 12/14/2023 9:50 AM EVAPORATOR SUPERVISOR Narrative Resulting Agency Comment Performing Organization Information: ?Site ID: ?Name: [facility] ?Address: [address] [place] [phone] ?Director: Harshad Frias Mk Mccracken MD LAB BLOOD ORDERABLES [facility] ([facility] * (ABNORMAL) CBC (includes Differential/Platelets) (12/14/2023 9:49 AM EVAPORATOR SUPERVISOR) [facility] Leukocytes, Blood 7.5 3.8 - 10.8 Thousand/u [...] [facility]) 12/14/2023 9:49 AM EVAPORATOR SUPERVISOR 12/14/2023 9:50 AM EVAPORATOR SUPERVISOR Narrative Resulting Agency Comment Performing Organization Information: ?Site ID: ?Name: [facility] ?Address: [address] [place] [address] [place] [address] ?Director: Harshad Frias Mk Mccracken MD LAB BLOOD ORDERABLES [facility] ([facility] * Urinalysis, Complete (12/14/2023 9:49 AM EVAPORATOR SUPERVISOR) Color of Urine YELLOW YELLOW [facility] [...] elements seen were reported. 12/14/2023 9:49 AM EVAPORATOR SUPERVISOR 12/14/2023 9:50 AM EVAPORATOR SUPERVISOR Narrative Resulting Agency Comment Performing Organization Information: ?Site ID: ?Name: [facility] ?Address: [address] [place] [phone] ?Director: Harshad Frias Mk Mccracken MD LAB URINE ORDERABLES [facility] ([facility] * (ABNORMAL) Renal Function Panel (RFP) (12/14/2023 9:49 AM EVAPORATOR SUPERVISOR) Glucose, Serum/Plasma 85 65 - 99 mg/dL [...] [facility] 12/14/2023 9:49 AM EVAPORATOR SUPERVISOR 12/14/2023 9:50 AM EVAPORATOR SUPERVISOR Narrative Resulting Agency Comment Performing Organization Information: ?Site ID: [id number] ?Name: [facility] ?Address: [address] [place] [address] [place] [address] ?Director: Harshad Frias Mk Mccracken MD LAB BLOOD ORDERABLES [facility] ([facility]) * Uric Acid, Serum (12/14/2023 9:49 AM EVAPORATOR SUPERVISOR) Urate, Serum/Plasma 5.1 2.5 - 7.0 mg/dL [facility] ([facility]) Comment: Therapeutic target for gout patients: <6.0 mg/dL ?? 12/14/2023 9:49 AM EVAPORATOR SUPERVISOR 12/14/2023 9:50 AM EVAPORATOR SUPERVISOR Narrative Resulting Agency Comment Performing Organization Information: ?Site ID: [id number] ?Name: [facility] ?Address: [address] [place], [place] [address] [address] ?Director: Harshad Frias Mk Mccracken MD LAB BLOOD ORDERABLES Performing Organization Address City/[facility]/ZIP Co de Phone Number [facility] ([facility]) * Ferritin, Serum (12/14/2023 9:49 AM EVAPORATOR SUPERVISOR) Ferritin, Serum/Plasma 46 16 - 232 ng/mL [facility] ([facility]) 12/14/2023 9:49 AM EVAPORATOR SUPERVISOR 12/14/2023 9:50 AM EVAPORATOR SUPERVISOR Narrative Resulting Agency Comment Performing Organization Information: ?Site ID: [id number] ?Name: [facility] ?Address: [address] [place] [address] [place] [address] ?Director: Harshad Frias Mk Mccracken MD LAB BLOOD ORDERABLES Performing Organization Address City/[facility]/ZIP Co de Phone Number [facility] ([facility]) * (ABNORMAL) Iron and TIBC, Serum (12/14/2023 9:49 AM EVAPORATOR SUPERVISOR) Iron, Serum/Plasma 45 40 - 190 mcg/dL [facility] ([facility]) Iron binding capacity, Serum/Plasma 409 250 - 450 mcg/dL (calc) [facility] ([facility]) Iron saturation, Serum/Plasma 11(L) 16 - 45 % (calc) [facility] ([facility]) 12/14/2023 9:49 AM EVAPORATOR SUPERVISOR 12/14/2023 9:50 AM EVAPORATOR SUPERVISOR Narrative Resulting Agency Comment Performing Organization Information: ?Site ID: [id number] ?Name: [facility] ?Address: [address] [place] [address] ?Director: Harshad Frias Mk Mccracken MD LAB BLOOD ORDERABLES [facility] ([facility]) * PTH Intact w/o Calcium, Serum (12/14/2023 9:49 AM EVAPORATOR SUPERVISOR) PTH, Intact, Serum/Plasma 57 16 - 77 pg/mL [facility] ([facility]) Comment: Interpretive Guide ?Intact PTH ? Calcium ? ------- Normal Parathyroid ?Normal ? Normal Hypoparathyroidism ?Low or Low Normal ?Low Hyperparathyroidism ?? Primary ?Normal or High ? High ?? Secondary ?High ? Normal or Low ?? Tertiary ? High ? High Non-Parathyroid ?? Hypercalcemia ?Low or Low Normal ?High 12/14/2023 9:49 AM EVAPORATOR SUPERVISOR 12/14/2023 9:50 AM EVAPORATOR SUPERVISOR Narrative Resulting Agency Comment Performing Organization Information: ?Site ID: [id number] ?Name: [facility] ?Address: [address] [place] [address] [place] [address] ?Director: Harshad Frias Mk Mccracken MD LAB BLOOD ORDERABLES [facility] ([facility]) from Last 3 Months Care Teams Networker Relationship Specialty Start Date End Date Calixto Han MD PCP - General 05/08/20
--- OUTSIDE RECORDS SUMMARY | 2024-01-26 15:39 | XMS_ITS | Encounter Summary ---
Author Name Unknown Organization [facility] Address [address] [place] [id number] Care Team Providers Care Cook Chief Name Role Phone HanLeon ramos Primary Care Provider [phone] Reason for Visit * Reason Comments Chest Pain Encounter Details Date Type Department Care Team (Late st Contact Info) Description 11/17/2023 3:21 PM PRODUCTION CLERK - 11/17/2023 7:50 PM [facility] Emergency [facility] Emergency Dept [address] [place] [address] Jorge Roberts MD EMERGENCY PHYSICIAN [facility] [address] [place] [address] [place] [id number] Pulmonary nodule; Progressive hearing loss of left [...] Blood Pressure 134/96 11/17/2023 7:42 PM PRODUCTION CLERK Pulse 56 11/17/2023 7:42 PM PRODUCTION CLERK Temperature 36.6 ??C (97.9 ??F) 11/17/2023 3:19 PM CS T Respiratory Rate 18 11/17/2023 7:42 PM PRODUCTION CLERK Oxygen Saturation 99% 11/17/2023 7:42 PM PRODUCTION CLERK Inhaled Oxygen Concentration - - Weight 104.3 kg (229 lb 15 oz) 11/17/2023 3:21 P M PRODUCTION CLERK Height 167.6 cm (5' 6) 11/17/2023 3:19 PM PRODUCTION CLERK Body Mass Index 37.11 11/17/2023 3:19 PM PRODUCTION CLERK documented in this encounter Discharge Instructions * Attachments The following attachments cannot be sent through Care Everywhere. * Earache: Adult (Qatari) * Chest Pain (Qatari) * Hearing Loss (Qatari) * Pulmonary Nodules: General Info (Qatari) documented in this encounter Medications at Time [...] as needed for sleep vitamin D2 (ERGOCALCIFEROL) 51654 units (1250 mcg) capsule Take 50,000 Units by mouth once a week X 8 weeks documented as of this encounter ED Notes * Kimberly Castorena RN - 11/17/2023 3:17 PM CST Left sided CP radiating up neck and shoulder. Started Monday morning. SOB since Monday as well. Denies fever or cough. UCTION CLERK * Jorge Roberts MD - 11/17/2023 3:08 [...] (DESYREL) 50 MG tablet vitamin D2 (ERGOCALCIFEROL) 32581 units (1250 mcg) capsule Past Medical History: [...] Pressure Ventricular Rate 80 Atrial Rate 80 PA Interval 164 QRS Duration 78 QT 374 QTc 431 P Pullman 66 R AXIS 43 T Pullman 57 Interpretation ECG Sinus rhythm Normal ECG When compared with ECG of 11-JUN-2020 13:48, Vent. rate has increased BY 31 BPM Unconfirmed report - interpretation of this ECG is computer generated - see medical record for final interpretation Confirmed by - EMERGENCY ROOM, PHYSICIAN ([id number]), senior editor SHAWN RENDON ([id number]) on 11/17/2023 3:38:15 PM Imaging: CT Chest [...] intracranial process. HEAD CTA: 1. Normal CTA [place]. NECK CTA: 1. Normal neck CTA. CT Head w/o Contrast Final Result IMPRESSION: HEAD CT: 1. No acute intracranial process. HEAD CTA: 1. Normal CTA [place]. NECK CTA: 1. Normal neck [...] was discharged to home. Impression & Plan [facility] Diagnoses: None Medical Decision Makin-year-old female presenting [...] Roberts MD Goodwin, Shaun M, MD 11/17/232007 UCTION CLERK documented in this encounter Plan of Treatment Not on file documented as of this encounter Procedures Procedure Name Priority Date/Time Associated Diagnosis Comments CT CHEST PULMONARY EMBOLISM W CONTRAST STAT 11/17/2023 6:29 PM PRODUCTION CLERK CTA HEAD NECK W CONTRAST STAT 11/17/2023 6:[address] HEAD W/O CONTRAST STAT 11/17/2023 6:27 PM PRODUCTION CLERK TROPONIN T, HIGH SENSITIVITY STAT 11/17/2023 5:30 PM PRODUCTION CLERK EXTRA TUBE STAT 11/17/2023 3:27 PM PRODUCTION CLERK EXTRA RED TOP TUBE STAT 11/17/2023 3: 27 PM PRODUCTION CLERK EXTRA BLUE TOP TUBE STAT 11/17/2023 3 :27 PM PRODUCTION CLERK CBC WITH PLATELETS AND DIFFERENTIAL STAT 11/17/2023 3:27 PM PRODUCTION CLERK TROPONIN T, HIGH SENSITIVITY STAT 11/17/2023 3:27 PM PRODUCTION CLERK CBC WITH PLATELETS & DIFFERENTIAL STAT 11/17/2023 3:27 PM PRODUCTION CLERK D DIMER QUANTITATIVE STAT 11/17/2023 3:27 PM PRODUCTION CLERK BASIC METABOLIC PANEL STAT 11/17/2023 3:27 PM PRODUCTION CLERK EKG 12-LEAD, TRACING ONLY STAT 11/17/2023 3:13 PM PRODUCTION CLERK documented in this encounter Results * CT Chest Pulmonary Embolism w Contrast (11/17/2023 6:29 PM PRODUCTION CLERK) Anatomical Region Laterality Modality Chest, SUBRAD CT BODY, UMP CT CHEST Computed Tomography 11/17/2023 6:29 PM PRODUCTION CLERK Impressions 11/17/2023 6:45 PM PRODUCTION CLERK IMPRESSION: 1. ??No pulmonary embolism. 2. ??Previous granulomatous infection. 3. ??New 5 mm groundglass nodule in the right upper lobe is likely inflammatory. 4. ??Changes of autosomal dominant polycystic kidney disease. A few of the cysts are complex. A yearly follow-up could be performed. Nonobstructive stones left kidney. Narrative 11/17/2023 6:45 PM PRODUCTION CLERK EXAM: CT CHEST PULMONARY EMBOLISM W CONTRAST LOCATION: [facility] DATE: 11/17/2023 INDICATION: Chest pain, elevated [...] CT CHEST PULMONARY EMBOLISM W CONTRAST LOCATION: [facility] DATE: 11/17/2023 INDICATION: Chest pain, elevated [...] Neck with Contrast (11/17/2023 6:28 PM PRODUCTION CLERK) Anatomical Region Laterality Modality Head, SUBRAD CT NEURO, SUBRA D CT NEURO, UMP CT NEURO, RAD CT Computed Tomography 11/17/2023 6:28 PM PRODUCTION CLERK Impressions 11/17/2023 7:08 PM PRODUCTION CLERK IMPRESSION: HEAD CT: 1. ??No acute intracranial process. HEAD CTA: 1. ??Normal CTA [place]. NECK CTA: 1. ??Normal neck CTA. Narrative 11/17/2023 7:08 PM PRODUCTION CLERK EXAM: CT HEAD W/O CONTRAST, CTA HEAD NECK W CONTRAST LOCATION: [facility] DATE/TIME: 11/17/2023 6:27 PM PRODUCTION CLERK INDICATION: Headache, left arm numbness COMPARISON: No [...] aneurysm, or high flow vascular malformation. Standard [place] anatomy. POSTERIOR CIRCULATION: No stenosis/occlusion, [...] CONTRAST, CTA HEAD NECK W CONTRAST LOCATION: [facility] DATE/TIME: 11/17/2023 6:27 PM PRODUCTION CLERK INDICATION: Headache, left arm numbness COMPARISON: No [...] stenosis/occlusion, aneurysm, or high flowvascular malformation. Standard [place] anatomy. POSTERIOR CIRCULATION: No stenosis/occlusion, [...] intracranial process. HEAD CTA: 1. Normal CTA [place]. NECK CTA: 1. Normal neck CTA. Jorge Roberts MD IMG CT ORDERABLES * CT Head w/o Contrast (11/17/2023 6:27 PM PRODUCTION CLERK) Anatomical Region Laterality Modality Head, SUBRAD CT NEURO, SUBRA D CT NEURO, UMP CT NEURO, RAD CT Computed Tomography 11/17/2023 6:27 PM PRODUCTION CLERK Impressions 11/17/2023 7:08 PM PRODUCTION CLERK IMPRESSION: HEAD CT: 1. ??No acute intracranial process. HEAD CTA: 1. ??Normal CTA [place]. NECK CTA: 1. ??Normal neck CTA. Narrative 11/17/2023 7:08 PM PRODUCTION CLERK EXAM: CT HEAD W/O CONTRAST, CTA HEAD NECK W CONTRAST LOCATION: [facility] DATE/TIME: 11/17/2023 6:27 PM PRODUCTION CLERK INDICATION: Headache, left arm numbness COMPARISON: No [...] aneurysm, or high flow vascular malformation. Standard [place] anatomy. POSTERIOR CIRCULATION: No stenosis/occlusion, [...] CONTRAST, CTA HEAD NECK W CONTRAST LOCATION: [facility] DATE/TIME: 11/17/2023 6:27 PM PRODUCTION CLERK INDICATION: Headache, left arm numbness COMPARISON: No [...] stenosis/occlusion, aneurysm, or high flowvascular malformation. Standard [place] anatomy. POSTERIOR CIRCULATION: No stenosis/occlusion, [...] intracranial process. HEAD CTA: 1. Normal CTA [place]. NECK CTA: 1. Normal neck CTA. Jorge Roberts MD [facility] CT ORDERABLES * Troponin T, High Sensitivity (now) (11/17/2023 5:30 PM PRODUCTION CLERK) [facility] Troponin T, High Sensitivity 7 <=14 ng/L 11/17/2023 5:56 PM PRODUCTION CLERK LABORATORY Comment: Either a High Sensitivity Troponin [...] Venipuncture / Unknown 11/17/2023 5:30 PM PRODUCTION CLERK 11/17/2023 5:33 PM PRODUCTION CLERK Jorge Roberts MD LAB - BLOOD ORDERABL ES Performing Organization Address [facility] Co de Phone Number [facility] Lab [address] Lab (1st floor, no room number) [place] [address], [facility] [phone] * (ABNORMAL) D dimer quantitative (11/17/2023 3:27 PM PRODUCTION CLERK) [facility] D-Dimer Quantitative 0.54(H) 0.00 - 0.50 ug/mL FEU 11/17/2023 5:11 PM PRODUCTION CLERK LABORATORY Blood STRUCTURE OF LEFT UPPER LIMB / Unknown Venipuncture / Unknown 11/17/2023 3:27 PM PRODUCTION CLERK 11/17/2023 3:48 PM PRODUCTION CLERK Narrative LABORATORY - 11/17/2023 5:11 PM PRODUCTION CLERK This D-dimer assay is intended for use in conjunction with a clinical pretest probability assessment model to exclude pulmonary embolism (PE) and deep venous thrombosis (DVT) in outpatients suspected of PE or DVT. The cut-off value is 0.50 ug/mL FEU. Jorge Roberts MD LAB - BLOOD ORDERABL ES Performing Organization Address [facility]/ZIP Co de Phone Number [facility] Lab [address] Lab (1st floor, no room number) [place] [address], [facility] [phone] * Extra Red Top Tube (11/17/2023 3:27 PM PRODUCTION CLERK) Hold Specimen [facility] 11/17/2023 5:01 PM PRODUCTION CLERK RH LABORATORY Blood STRUCTURE OF LEFT UPPER LIMB / Unknown Venipuncture / Unknown 11/17/2023 3:27 PM PRODUCTION CLERK 11/17/2023 3:47 PM PRODUCTION CLERK Jorge Roberts MD LAB - BLOOD ORDERABL ES [facility] Lab [address] Lab (1st floor, no room number) [place] [address], [facility] [phone] * Extra Blue Top Tube (11/17/2023 3:27 PM PRODUCTION CLERK) Hold Specimen [facility] 11/17/2023 5:01 PM PRODUCTION CLERK RH LABORATORY Blood STRUCTURE OF LEFT UPPER LIMB / Unknown Venipuncture / Unknown 11/17/2023 3:27 PM PRODUCTION CLERK 11/17/2023 3:48 PM PRODUCTION CLERK Jorge Roberts MD LAB - BLOOD ORDERABL ES [facility] Lab [address] Lab (1st floor, no room number) [place] [phone], [facility] [phone] * (ABNORMAL) CBC with platelets and differential (11/17/2023 3:27 PM PRODUCTION CLERK) WBC Count 9.7 4.0 - 11.0 10e3/uL 11/17/2023 3:51 PM PRODUCTION CLERK RH LABORATORY RBC Count 4.48 3.80 - 5.20 10e6/uL 11/17/2023 3:51 PM PRODUCTION CLERK RH LABORATORY Hemoglobin 12.6 11.7 - 15.7 g/dL 11/17/2023 3:51 PM PRODUCTION CLERK RH LABORATORY Hematocrit 41.1 35.0 - 47.0 % 11/17/2023 3:51 PM PRODUCTION CLERK RH LABORATORY MCV 92 78 - 100 fL 11/17/2023 3:51 PM PRODUCTION CLERK RH LABORATORY MCH 28.1 26.5 - 33.0 pg 11/17/2023 3:51 PM PRODUCTION CLERK RH LABORATORY MCHC 30.7(L) 31.5 - 36.5 g/dL 11/17/2023 3:51 PM PRODUCTION CLERK [facility] LABORATORY RDW 13.3 10.0 - 15.0 % 11/17/2023 3:51 PM PRODUCTION CLERK [facility] LABORATORY Platelet Count 203 150 - 450 10e3/uL 11/17/2023 3:51 PM PRODUCTION CLERK [facility] LABORATORY % Neutrophils 61 % 11/17/2023 3:51 PM PRODUCTION CLERK [facility] LABORATORY % Lymphocytes 28 % 11/17/2023 3:51 PM PRODUCTION CLERK RH LABORATORY % Monocytes 5 % 11/17/2023 3:51 PM PRODUCTION CLERK RH LABORATORY % Eosinophils 5 % 11/17/2023 3:51 PM PRODUCTION CLERK RH LABORATORY % Basophils 1 % 11/17/2023 3:51 PM PRODUCTION CLERK [facility] LABORATORY % Immature Granulocytes 0 % 11/17/2023 3:51 PM PRODUCTION CLERK RH LABORATORY NRBCs per 100 WBC 0 <1 /100 024 3:51 PM PRODUCTION CLERK RH LABORATORY Absolute Neutrophils 6.0 1.6 - 8.3 10e3/uL 11/17/2023 3:51 PM PRODUCTION CLERK RH LABORATORY Absolute Lymphocytes 2.7 0.8 - 5.3 10e3/uL 11/17/2023 3:51 PM PRODUCTION CLERK RH LABORATORY Absolute Monocytes 0.5 0.0 - 1.3 10e3/uL 11/17/2023 3:51 PM PRODUCTION CLERK RH LABORATORY Absolute Eosinophils 0.5 0.0 - 0.7 10e3/uL 11/17/2023 3:51 PM PRODUCTION CLERK RH LABORATORY Absolute Basophils 0.1 0.0 - 0.2 10e3/uL 11/17/2023 3:51 PM PRODUCTION CLERK RH LABORATORY Absolute Immature Granulocytes 0.0 <=0.4 10e3/uL 11/17/2023 3:51 PM PRODUCTION CLERK RH LABORATORY Absolute NRBCs 0.0 10e3/uL 11/17/2023 3:51 PM PRODUCTION CLERK RH LABORATORY Blood STRUCTURE OF LEFT UPPER LIMB / Unknown Venipuncture / Unknown 11/17/2023 3:27 PM PRODUCTION CLERK 11/17/2023 3:48 PM PRODUCTION CLERK Jorge Roberts MD LAB - BLOOD ORDERABL ES RH LABORATORY [facility] [address] Lab (1st floor, no room number) [place] [address], [facility] [phone] * Troponin T, High Sensitivity (now) (11/17/2023 3:27 PM PRODUCTION CLERK) Troponin T, High Sensitivity 7 <=14 ng/L 11/17/2023 4:11 PM PRODUCTION CLERK LABORATORY Comment: Either a High Sensitivity Troponin [...] Venipuncture / Unknown 11/17/2023 3:27 PM PRODUCTION CLERK 11/17/2023 3:47 PM PRODUCTION CLERK Jorge Roberts MD LAB - BLOOD ORDERABL ES [facility] [address] [facility] ([facility] floor, no room number) [place] [address], [facility] [phone] * (ABNORMAL) Basic metabolic panel (BMP) (11/17/2023 3:27 PM PRODUCTION CLERK) Sodium 143 135 - 145 mmol/L 11/17/2023 4:11 PM PRODUCTION CLERK LABORATORY Comment:Reference intervals for this test were updated on 07/11/2023 to more accurately reflect our healthy population. There may be differences in the flagging of prior results with similar values performed with this method. Interpretation of those prior results can be made in the context of the updated reference intervals. Potassium 3.8 3.4 - 5.3 mmol/L 11/17/2023 4:11 PM [facility] Chloride 112(H) 98 - 107 mmol/L 11/17/2023 4:11 PM [facility] Carbon Dioxide (CO2) 19(L) 22 - 29 mmol/L 11/17/2023 4:11 PM [facility] Anion Gap 12 7 - 15 mmol/L 11/17/2023 4:11 PM [facility] Urea Nitrogen 29.4(H) 6.0 - 20.0 mg/dL 11/17/2023 4:11 PM [facility] Creatinine 1.87(H) 0.51 - 0.95 mg/dL 11/17/2023 4:11 PM [facility] GFR Estimate 34(L) >60 mL/min/1. 73m2 11/17/2023 4:11 PM [facility] Calcium 9.0 8.6 - 10.0 mg/dL 11/17/2023 4:11 PM [facility] Glucose 96 70 - 99 mg/dL 11/17/2023 4:11 PM [facility] Blood STRUCTURE OF LEFT UPPER LIMB / Unknown Venipuncture / Unknown 11/17/2023 3:27 PM PRODUCTION CLERK 11/17/2023 3:47 PM PRODUCTION CLERK Jorge Roberts MD LAB - BLOOD ORDERABL ES LABORATORY [facility] Lab [address] Lab (1st floor, no room number) [place] [address], [facility] [phone] * EKG 12 lead (11/17/2023 3:13 PM PRODUCTION CLERK) Systolic Blood Pressure mmHg RADIOLOGY RESULTS Diastolic Blood Pressure mmHg RADIOLOGY RESULTS Ventricular Rate 80 BPM RAD IOLOGY RESULTS Atrial Rate 80 BPM RADIOLOG Y RESULTS PA Interval 164 ms RADIOLOG Y RESULTS QRS Duration 78 ms RADIOLO GY RESULTS QT 374 ms RADIOLOGY RESULTS QTc 431 ms RADIOLOGY RESULTS P Pullman 66 degrees RADIOLOGY RESULTS R AXIS 43 degrees RADIOLOGY RESULTS T Pullman 57 degrees RADIOLOGY RESULTS Interpretation ECG Sinus rhythm Normal ECG When compared with ECG of 11-JUN-2020 13:48, Vent. rate has increased BY ??31 BPM Unconfirmed report - interpretation of this ECG is computer generated - see medical record for final interpretation Confirmed by - EMERGENCY ROOM, PHYSICIAN ([id number]), senior editor SHAWN RENDON ([id number]) on 11/17/2023 3:38:15 PM RADIOLOGY RESULTS 11/17/2023 3:13 PM PRODUCTION CLERK 11/17/2023 3:38 PM PRODUCTION CLERK Jorge Roberts MD ECG ORDERABLES RADIOLOGY RESULTS [...] a CT scan. $Given 11/17/2023 6:10 PM PRODUCTION CLERK 90 mLs iopamidol (ISOVUE-370) solution 500 mL 500 mL, Intravenous, ONCE, On Mon11/17/23 at 1810, For 1 dose $Given 11/17/2023 6:10 PM PRODUCTION CLERK 100 mLs documented in this encounter Active and Recently Administered Medications Times are shown in PRODUCTION CLERK. Scheduled Medication Order 11/15/2023 11/16/2023 11/17/2023 CT [...] Lamey) documented in this encounter Care Teams Cook Chief Relationship Specialty Start Date End Date Leon Han PCP - General Family Practice 11/5/19 documented as of this encounter
--- OUTSIDE RECORDS SUMMARY | 2024-01-26 15:39 | XMS_ITS | Encounter Summary ---
Author Name Unknown Organization [facility] Katie utishima Address [address] [place] [phone] Phone Care Team Providers Care Underwriting Sales Representative Name Role Phone Calixto Han MD Primary Care Provider Unavail able Encounter Details Date Type Department Care Team (Late st Contact Info) Description 12/14/2023 Orders Only [facility] [address] [place] [address] [place] [address] [place] [address] [address] [address] [place], [place] [id number] Social History Tobacco Use Types Packs/Day Years [...] Description 04/04/2024 10:30 AM MDT Office Visit [address] [place] [address] Mk Mccracken MD [address] [place], [place] [id number] documented as of this encounter Procedures Procedure Name Priority Date/Time Associated Diagnosis Comments TOTAL PROTEIN W/ CREATININE, URINE, RANDOM Routine 12/14/2023 9:49 AM GRADER TENDER VITAMIN D, 25-HYDROXY, SERUM Routine 12/14/2023 9:49 AM GRADER TENDER CBC (INCLUDES DIFFERENTIAL/PLATEL ETS) Routine 12/14/2023 9:49 AM GRADER TENDER URINALYSIS, COMPLETE Routine 12/14/2023 9:49 AM GRADER TENDER RENAL FUNCTION PANEL (RFP) Routine 12/14/2023 9:49 AM GRADER TENDER URIC ACID, SERUM Routine 12/14/2023 9:49 AM GRADER TENDER FERRITIN, SERUM Routine 12/14/2023 9:49 AM GRADER TENDER IRON AND TIBC, SERUM Routine 12/14/2023 9:49 AM GRADER TENDER PTH INTACT W/O CALCIUM, SERUM Routine 12/14/2023 9:49 AM GRADER TENDER documented in this encounter Results * Total Protein w/ Creatinine, Urine, Random (12/14/2023 9:49 AM GRADER TENDER) Creatinine, Urine 56 20 - 275 mg/dL [facility] ([facility]) Protein/Creatin ine, Urine 107 24 - 184 mg/g creat [facility] Protein/Creatin ine, Urine 0.107 0.024 - 0.184 mg/mg creat [facility] Protein, Urine 6 5 - 24 mg/dL [facility]) 12/14/2023 9:49 AM GRADER TENDER 12/14/2023 9:50 AM GRADER TENDER Narrative Resulting Agency Comment Performing Organization Information: ?Site ID: [id number] ?Name: [facility] ?Address: [address] [place] [phone] ?Director: Harshad Frias Mk Mccracken MD LAB URINE ORDERABLES [facility] ([facility]) * (ABNORMAL) Vitamin D, 25-Hydroxy, Serum (12/14/2023 9:49 AM GRADER TENDER) Calcidiol, Serum/Plasma 27(L) 30 - 100 ng/mL [facility] ([facility]) Comment: Vitamin D Status ? 25-OH Vitamin D: Deficiency: ?<20 ng/mL Insufficiency: ? 20 - 29 ng/mL Optimal: ? > or = 30 ng/mL For 25-OH Vitamin D testing on patients on D2-supplementation and patients for whom quantitation of D2 and D3 fractions is required, the QuestAssureD(TM) 25-OH VIT D, (D2,D3), LC/MS/MS is recommended: order code 33361 (patients >2yrs). See Note 1 Note 1 For additional information, please refer to http://education.Vionic/faq/CHD597 (This link is being provided for informational/ educational purposes only.) 12/14/2023 9:49 AM GRADER TENDER 12/14/2023 9:50 AM GRADER TENDER Narrative Resulting Agency Comment Performing Organization Information: ?Site ID: [id number] ?Name: [facility] ?Address: [address] [place] [phone] ?Director: Harshad Frias Mk Mccracken MD LAB BLOOD ORDERABLES [facility] ([facility]) * PTH Intact w/o Calcium, Serum (12/14/2023 9:49 AM GRADER TENDER) PTH, Intact, Serum/Plasma 57 16 - 77 pg/mL [facility] ([facility]) Comment: Interpretive Guide ?Intact PTH ? Calcium ? ------- Normal Parathyroid ?Normal ? Normal Hypoparathyroidism ?Low or Low Normal ?Low Hyperparathyroidism ?? Primary ?Normal or High ? High ?? Secondary ?High ? Normal or Low ?? Tertiary ? High ? High Non-Parathyroid ?? Hypercalcemia ?Low or Low Normal ?High 12/14/2023 9:49 AM GRADER TENDER 12/14/2023 9:50 AM GRADER TENDER Narrative Resulting Agency Comment Performing Organization Information: ?Site ID: [id number] ?Name: [facility] ?Address: [address] [place], [place] [address] [address] ?Director: Harshad Frias Mk Mccracken MD LAB BLOOD ORDERABLES Performing Organization Address [facility] de Phone Number [facility] ([facility] * Ferritin, Serum (12/14/2023 9:49 AM GRADER TENDER) Ferritin, Serum/Plasma 46 16 - 232 ng/mL [facility] ([facility]) 12/14/2023 9:49 AM GRADER TENDER 12/14/2023 9:50 AM GRADER TENDER Narrative Resulting Agency Comment Performing Organization Information: ?Site ID: [id number] ?Name: [facility] ?Address: [address] [place], [place] [address] [address] ?Director: Harshad Frias Mk Mccracken MD LAB BLOOD ORDERABLES Performing Organization Address [facility] de Phone Number [facility] ([facility]) * (ABNORMAL) CBC (includes Differential/Platelets) (12/14/2023 9:49 AM GRADER TENDER) Pathologist [facility] Leukocytes, Blood 7.5 3.8 - 10.8 Thousand/u [...] [facility]) 12/14/2023 9:49 AM GRADER TENDER 12/14/2023 9:50 AM GRADER TENDER Narrative Resulting Agency Comment Performing Organization Information: ?Site ID: [id number] ?Name: [facility] ?Address: [address] [place] [address] [place] [address] ?Director: Harshad Frias Mk Mccracken MD LAB BLOOD ORDERABLES [facility] ([facility]) * Urinalysis, Complete (12/14/2023 9:49 AM GRADER TENDER) Color of Urine YELLOW [facility] [...] elements seen were reported. 12/14/2023 9:49 AM GRADER TENDER 12/14/2023 9:50 AM GRADER TENDER Narrative Resulting Agency Comment Performing Organization Information: ?Site ID: ?Name: [facility] ?Address: [address] [place] [address] [place] [address] ?Director: Harshad Frias Mk Mccracken MD LAB URINE ORDERABLES [facility] ([facility]) * (ABNORMAL) Renal Function Panel (RFP) (12/14/2023 9:49 AM GRADER TENDER) Glucose, Serum/Plasma 85 65 - 99 mg/dL [...] [facility]) 12/14/2023 9:49 AM GRADER TENDER 12/14/2023 9:50 AM GRADER TENDER Narrative Resulting Agency Comment Performing Organization Information: ?Site ID: [id number] ?Name: [facility] ?Address: [address] [place], [place] [address] [address] ?Director: Harshad Frias Mk Mccracken MD LAB BLOOD ORDERABLES Performing Organization Address [facility]/ZIP Co de Phone Number [facility] ([facility]) * (ABNORMAL) Iron and TIBC, Serum (12/14/2023 9:49 AM GRADER TENDER) Iron, Serum/Plasma 45 40 - 190 mcg/dL [facility] ([facility]) Iron binding capacity, Serum/Plasma 409 250 - 450 mcg/dL (calc) [facility] ([facility]) Iron saturation, Serum/Plasma 11(L) 16 - 45 % (calc) [facility] ([facility]) 12/14/2023 9:49 AM GRADER TENDER 12/14/2023 9:50 AM GRADER TENDER Narrative Resulting Agency Comment Performing Organization Information: ?Site ID: [id number] ?Name: [facility] ?Address: [address] [place], [place] [address] [address] ?Director: Harshad Frias Mk Mccracken MD LAB BLOOD ORDERABLES Performing Organization Address [facility]/ZIP Co de Phone Number [facility] * Uric Acid, Serum (12/14/2023 9:49 AM GRADER TENDER) Urate, Serum/Plasma 5.1 2.5 - 7.0 mg/dL [facility] ([facility]) Comment: Therapeutic target for gout patients: <6.0 mg/dL ?? 12/14/2023 9:49 AM GRADER TENDER 12/14/2023 9:50 AM GRADER TENDER Narrative Resulting Agency Comment Performing Organization Information: ?Site ID: [id number] ?Name: [facility] ?Address: [address] [place], [place] [address] [address] ?Director: Harshad Frias Mk Mccracken MD LAB BLOOD ORDERABLES [facility] ([facility]) documented in this encounter Visit Diagnoses Not on filedocumented in this encounter Care Teams Underwriting Sales Representative Relationship Specialty Start Date End Date Calixto Han MD PCP - General 05/08/20 documented as of this encounter
--- OUTSIDE RECORDS SUMMARY | 2024-01-26 15:39 | XMS_ITS | Encounter Summary ---
Author Name Unknown Organization [facility] Address [address] [place] [address] Care Team Providers Care Animal Treatment Investigator Name Role Phone Leon Han Primary Care Provider [phone] Alissa Desouza MD Unavailable [phone] Encounter Details Date Type Department Care Team ([facility] st Contact Info) Description 01/07/2013 Telephone [facility] Behavioral Health Intake [address] [place] [phone] Generic, Behavioral IntakeMD Social History Tobacco [...] on filedocumented in this encounter Care Teams Animal Treatment Investigator Relationship Specialty Start Date End Date Leon Han PCP - General Family Practice 08/20/19 Alissa Desouza MD [address] [place] [phone] Assigned Heart and Vascular Provider 08/07/20 10/23/21 documented as of this encounter
--- OUTSIDE RECORDS SUMMARY | 2024-01-26 15:39 | XMS_ITS | Clinical Summary ---
Author Name Unknown Organization [facility] Address [address] [place] [address] Care Team Providers Care Wrist Liner Name Role Phone Leon Han Primary Care Provider [phone] Allergies Active Allergy Reactions Criticality Noted Date [...] 30 mL 06/11/2020 Active vitamin D2 (ERGOCALCIFEROL) 31875 units (1250 mcg) capsule Take 50,000 Units by mouth once a week X 8 weeks Active Active Problems Problem Noted Date Diagnosed Date Abscess of postoperative wound of abdominal wall 08/21/2019 Pseudotumor cerebri 08/21/2019 Fibromyalgia 08/21/2019 Autosomal dominant polycystic kidney disease Essential hypertension, benign 01/15/2007 Gastrointestinal Crohn's disease 01/15/2007 Confusion and disorientation Encounters Date Type Department Care Team Description 11/17/2023 3:21 PM MANAGER LANDSCAPE - 11/17/2023 7:50 PM MANAGER LANDSCAPE Emergency [facility] Emergency Dept [address] [place] [id number] Jorge Roberts MD Pulmonary nodule; Progressive hearing [...] Comments Blood Pressure 134/96 11/17/2023 7:42 PM MANAGER LANDSCAPE Pulse 56 11/17/2023 7:42 PM MANAGER LANDSCAPE Temperature 36.6 ??C (97.9 ??F) 11/17/2023 3:19 PM CS T Respiratory Rate 18 11/17/2023 7:42 PM MANAGER LANDSCAPE Oxygen Saturation 99% 11/17/2023 7:42 PM MANAGER LANDSCAPE Inhaled Oxygen Concentration - - Weight 104.3 kg (229 lb 15 oz) 11/17/2023 3:21 P M MANAGER LANDSCAPE Height 167.6 cm (5' 6) 11/17/2023 3:19 PM MANAGER LANDSCAPE Body Mass Index 37.11 11/17/2023 3:19 PM MANAGER LANDSCAPE Plan of Treatment Health Maintenance Due Date [...] EMBOLISM W CONTRAST STAT 11/17/2023 6:29 PM MANAGER LANDSCAPE CTA HEAD NECK W CONTRAST STAT 11/17/2023 6:[address] HEAD W/O CONTRAST STAT 11/17/2023 6:27 PM MANAGER LANDSCAPE TROPONIN T, HIGH SENSITIVITY STAT 11/17/2023 5:30 PM MANAGER LANDSCAPE CBC WITH PLATELETS & DIFFERENTIAL STAT 11/17/2023 3:27 PM MANAGER LANDSCAPE D DIMER QUANTITATIVE STAT 11/17/2023 3:27 PM MANAGER LANDSCAPE EXTRA RED TOP TUBE STAT 11/17/2023 3: 27 PM MANAGER LANDSCAPE EXTRA BLUE TOP TUBE STAT 11/17/2023 3 :27 PM MANAGER LANDSCAPE CBC WITH PLATELETS AND DIFFERENTIAL STAT 11/17/2023 3:27 PM MANAGER LANDSCAPE EXTRA TUBE STAT 11/17/2023 3:27 PM MANAGER LANDSCAPE TROPONIN T, HIGH SENSITIVITY STAT 11/17/2023 3:27 PM MANAGER LANDSCAPE BASIC METABOLIC PANEL STAT 11/17/2023 3:27 PM MANAGER LANDSCAPE EKG 12-LEAD, TRACING ONLY STAT 11/17/2023 3:13 PM MANAGER LANDSCAPE from Last 3 Months Results * CT Chest Pulmonary Embolism w Contrast (11/17/2023 6:29 PM MANAGER LANDSCAPE) Anatomical Region Laterality Modality Chest, SUBRAD CT BODY, UMP CT CHEST Computed Tomography 11/17/2023 6:29 PM MANAGER LANDSCAPE Impressions 11/17/2023 6:45 PM MANAGER LANDSCAPE IMPRESSION: 1. ??No pulmonary embolism. 2. ??Previous granulomatous infection. 3. ??New 5 mm groundglass nodule in the right upper lobe is likely inflammatory. 4. ??Changes of autosomal dominant polycystic kidney disease. A few of the cysts are complex. A yearly follow-up could be performed. Nonobstructive stones left kidney. Narrative 11/17/2023 6:45 PM MANAGER LANDSCAPE EXAM: CT CHEST PULMONARY EMBOLISM W CONTRAST LOCATION: [facility] DATE: 11/17/2023 INDICATION: Chest pain, elevated [...] CT CHEST PULMONARY EMBOLISM W CONTRAST LOCATION: [facility] DATE: 11/17/2023 INDICATION: Chest pain, elevated [...] Head Neck with Contrast (11/17/2023 6:28 PM MANAGER LANDSCAPE) Anatomical Region Laterality Modality Head, SUBRAD CT NEURO, SUBRA D CT NEURO, UMP CT NEURO, RAD CT Computed Tomography 11/17/2023 6:28 PM MANAGER LANDSCAPE Impressions 11/17/2023 7:08 PM MANAGER LANDSCAPE IMPRESSION: HEAD CT: 1. ??No acute intracranial process. HEAD CTA: 1. ??Normal CTA [place]. NECK CTA: 1. ??Normal neck CTA. Narrative 11/17/2023 7:08 PM MANAGER LANDSCAPE EXAM: CT HEAD W/O CONTRAST, CTA HEAD NECK W CONTRAST LOCATION: [facility] DATE/TIME: 11/17/2023 6:27 PM MANAGER LANDSCAPE INDICATION: Headache, left arm numbness COMPARISON: No [...] aneurysm, or high flow vascular malformation. Standard [place] anatomy. POSTERIOR CIRCULATION: No stenosis/occlusion, [...] CONTRAST, CTA HEAD NECK W CONTRAST LOCATION: [facility] DATE/TIME: 11/17/2023 6:27 PM MANAGER LANDSCAPE INDICATION: Headache, left arm numbness COMPARISON: No [...] stenosis/occlusion, aneurysm, or high flowvascular malformation. Standard [place] anatomy. POSTERIOR CIRCULATION: No stenosis/occlusion, [...] intracranial process. HEAD CTA: 1. Normal CTA [place]. NECK CTA: 1. Normal neck CTA. Jorge Roberts MD IMG CT ORDERABLES * CT Head w/o Contrast (11/17/2023 6:27 PM MANAGER LANDSCAPE) Anatomical Region Laterality Modality Head, SUBRAD CT NEURO, SUBRA D CT NEURO, UMP CT NEURO, RAD CT Computed Tomography 11/17/2023 6:27 PM MANAGER LANDSCAPE Impressions 11/17/2023 7:08 PM MANAGER LANDSCAPE IMPRESSION: HEAD CT: 1. ??No acute intracranial process. HEAD CTA: 1. ??Normal CTA [place]. NECK CTA: 1. ??Normal neck CTA. Narrative 11/17/2023 7:08 PM MANAGER LANDSCAPE EXAM: CT HEAD W/O CONTRAST, CTA HEAD NECK W CONTRAST LOCATION: [facility] DATE/TIME: 11/17/2023 6:27 PM MANAGER LANDSCAPE INDICATION: Headache, left arm numbness COMPARISON: No [...] aneurysm, or high flow vascular malformation. Standard [place] anatomy. POSTERIOR CIRCULATION: No stenosis/occlusion, [...] CONTRAST, CTA HEAD NECK W CONTRAST LOCATION: [facility] DATE/TIME: 11/17/2023 6:27 PM MANAGER LANDSCAPE INDICATION: Headache, left arm numbness COMPARISON: No [...] stenosis/occlusion, aneurysm, or high flowvascular malformation. Standard [place] anatomy. POSTERIOR CIRCULATION: No stenosis/occlusion, [...] intracranial process. HEAD CTA: 1. Normal CTA [place]. NECK CTA: 1. Normal neck CTA. Jorge Roberts MD [facility] CT ORDERABLES * Troponin T, High Sensitivity (now) (11/17/2023 5:30 PM MANAGER LANDSCAPE) Only the most recent of2 resultswithin the time period is included. [facility] Troponin T, High Sensitivity 7 <=14 ng/L 11/17/2023 5:56 PM MANAGER LANDSCAPE LABORATORY Comment: Either a High Sensitivity Troponin [...] Unknown Venipuncture / Unknown 11/17/2023 5:30 PM MANAGER LANDSCAPE 11/17/2023 5:33 PM MANAGER LANDSCAPE Jorge Roberts MD LAB - BLOOD ORDERABL ES Performing Organization Address City/[facility]/ZIP Co de Phone Number [facility] Acute [facility] Lab [address] Lab (1st floor, no room number) [place] [address], [facility] [phone] * Extra Red Top Tube (11/17/2023 3:27 PM MANAGER LANDSCAPE) Hold Specimen [facility] 11/17/2023 5:01 PM MANAGER LANDSCAPE LABORATORY Blood STRUCTURE OF LEFT UPPER LIMB / Unknown Venipuncture / Unknown 11/17/2023 3:27 PM MANAGER LANDSCAPE 11/17/2023 3:47 PM MANAGER LANDSCAPE Jorge Roberts MD LAB - BLOOD ORDERABL ES [facility] Lab [address] Lab (1st floor, no room number) [place] [address], [facility] [phone] * Extra Blue Top Tube (11/17/2023 3:27 PM MANAGER LANDSCAPE) Hold Specimen [facility] 11/17/2023 5:01 PM MANAGER LANDSCAPE LABORATORY Blood STRUCTURE OF LEFT UPPER LIMB / Unknown Venipuncture / Unknown 11/17/2023 3:27 PM MANAGER LANDSCAPE 11/17/2023 3:48 PM MANAGER LANDSCAPE Jorge Roberts MD LAB - BLOOD ORDERABL ES [facility] LABORATORY [facility] Acute [facility] Lab [address] [facility] Lab (1st floor, no room number) [place] [address], [facility] [phone] * (ABNORMAL) CBC with platelets and differential (11/17/2023 3:27 PM MANAGER LANDSCAPE) WBC Count 9.7 4.0 - 11.0 10e3/uL 11/17/2023 3:51 PM MANAGER LANDSCAPE [facility] RBC Count 4.48 3.80 - 5.20 10e6/uL 11/17/2023 3:51 PM MANAGER LANDSCAPE [facility] Hemoglobin 12.6 11.7 - 15.7 g/dL 11/17/2023 3:51 PM MANAGER LANDSCAPE [facility] Hematocrit 41.1 35.0 - 47.0 % 11/17/2023 3:51 PM MANAGER LANDSCAPE [facility] MCV 92 78 - 100 fL 11/17/2023 3:51 PM MANAGER LANDSCAPE [facility] MCH 28.1 26.5 - 33.0 pg 11/17/2023 3:51 PM MANAGER LANDSCAPE [facility] MCHC 30.7(L) 31.5 - 36.5 g/dL 11/17/2023 3:51 PM MANAGER LANDSCAPE [facility] RDW 13.3 10.0 - 15.0 % 11/17/2023 3:51 PM MANAGER LANDSCAPE [facility] Platelet Count 203 150 - 450 10e3/uL 11/17/2023 3:51 PM MANAGER LANDSCAPE [facility] % Neutrophils 61 % 11/17/2023 3:51 PM MANAGER LANDSCAPE [facility] % Lymphocytes 28 % 11/17/2023 3:51 PM MANAGER LANDSCAPE [facility] % Monocytes 5 % 11/17/2023 3:51 PM MANAGER LANDSCAPE [facility] % Eosinophils 5 % 11/17/2023 3:51 PM MANAGER LANDSCAPE [facility] % Basophils 1 % 11/17/2023 3:51 PM MANAGER LANDSCAPE [facility] % Immature Granulocytes 0 % 11/17/2023 3:51 PM MANAGER LANDSCAPE [facility] NRBCs per 100 WBC 0 <1 /100 024 3:51 PM MANAGER LANDSCAPE [facility] Absolute Neutrophils 6.0 1.6 - 8.3 10e3/uL 11/17/2023 3:51 PM MANAGER LANDSCAPE [facility] Absolute Lymphocytes 2.7 0.8 - 5.3 10e3/uL 11/17/2023 3:51 PM MANAGER LANDSCAPE [facility] Absolute Monocytes 0.5 0.0 - 1.3 10e3/uL 11/17/2023 3:51 PM MANAGER LANDSCAPE [facility] Absolute Eosinophils 0.5 0.0 - 0.7 10e3/uL 11/17/2023 3:51 PM MANAGER LANDSCAPE [facility] Absolute Basophils 0.1 0.0 - 0.2 10e3/uL 11/17/2023 3:51 PM MANAGER LANDSCAPE [facility] Absolute Immature Granulocytes 0.0 <=0.4 10e3/uL 11/17/2023 3:51 PM MANAGER LANDSCAPE [facility] Absolute NRBCs 0.0 10e3/uL 11/17/2023 3:51 PM MANAGER LANDSCAPE [facility] Blood STRUCTURE OF LEFT UPPER LIMB / Unknown Venipuncture / Unknown 11/17/2023 3:27 PM MANAGER LANDSCAPE 11/17/2023 3:48 PM MANAGER LANDSCAPE Jorge Roberts MD LAB - BLOOD ORDERABL ES LABORATORY [facility] Lab [address] Lab (1st floor, no room number) [place] [address], [facility] [phone] * (ABNORMAL) D dimer quantitative (11/17/2023 3:27 PM MANAGER LANDSCAPE) [facility] Signature D-Dimer Quantitative 0.54(H) 0.00 - 0.50 ug/mL FEU 11/17/2023 5:11 PM MANAGER LANDSCAPE [facility] Blood STRUCTURE OF LEFT UPPER LIMB / Unknown Venipuncture / Unknown 11/17/2023 3:27 PM MANAGER LANDSCAPE 11/17/2023 3:48 PM MANAGER LANDSCAPE Narrative [facility] - 11/17/2023 5:11 PM MANAGER LANDSCAPE This D-dimer assay is intended for use in conjunction with a clinical pretest probability assessment model to exclude pulmonary embolism (PE) and deep venous thrombosis (DVT) in outpatients suspected of PE or DVT. The cut-off value is 0.50 ug/mL FEU. Jorge Roberts MD LAB - BLOOD ORDERABL ES LABORATORY [facility] Lab [address] Lab (1st floor, no room number) [place] [address], [facility] [phone] * (ABNORMAL) Basic metabolic panel (BMP) (11/17/2023 3:27 PM MANAGER LANDSCAPE) Sodium 143 135 - 145 mmol/L 11/17/2023 4:11 PM MANAGER LANDSCAPE LABORATORY Comment:Reference intervals for this test were updated on 07/11/2023 to more accurately reflect our healthy population. There may be differences in the flagging of prior results with similar values performed with this method. Interpretation of those prior results can be made in the context of the updated reference intervals. Potassium 3.8 3.4 - 5.3 mmol/L 11/17/2023 4:11 PM MANAGER LANDSCAPE LABORAT[facility] Chloride 112(H) 98 - 107 mmol/L 11/17/2023 4:11 PM MANAGER LANDSCAPE LABORATORY Carbon Dioxide (CO2) 19(L) 22 - 29 mmol/L 11/17/2023 4:11 PM [facility] Anion Gap 12 7 - 15 mmol/L 11/17/2023 4:11 PM MANAGER LANDSCAPE LABOR[facility] Urea Nitrogen 29.4(H) 6.0 - 20.0 mg/dL 11/17/2023 4:11 PM [facility] Creatinine 1.87(H) 0.51 - 0.95 mg/dL 11/17/2023 4:11 PM [facility] GFR Estimate 34(L) >60 mL/min/1. 73m2 11/17/2023 4:11 PM MANAGER LANDSCAPE LABORATORY Calcium 9.0 8.6 - 10.0 mg/dL 11/17/2023 4:11 PM [facility] Glucose 96 70 - 99 mg/dL 11/17/2023 4:11 PM [facility] Blood STRUCTURE OF LEFT UPPER LIMB / Unknown Venipuncture / Unknown 11/17/2023 3:27 PM MANAGER LANDSCAPE 11/17/2023 3:47 PM MANAGER LANDSCAPE Jorge Roberts MD LAB - BLOOD ORDERABL ES Performing Organization Address City/[facility]/ZIP Co de Phone Number LABORATORY [facility] Lab [address] Lab (1st floor, no room number) [place] [address], [facility] [phone] * EKG 12 lead (11/17/2023 3:13 PM MANAGER LANDSCAPE) Systolic Blood Pressure mmHg RADIOLOGY RESULTS Diastolic Blood Pressure mmHg RADIOLOGY RESULTS Ventricular Rate 80 BPM RAD IOLOGY RESULTS Atrial Rate 80 BPM RADIOLOG Y RESULTS LA Interval 164 ms RADIOLOG Y RESULTS QRS Duration 78 ms RADIOLO GY RESULTS QT 374 ms RADIOLOGY RESULTS QTc 431 ms RADIOLOGY RESULTS P [place] 66 degrees RADIOLOGY RESULTS R AXIS 43 degrees RADIOLOGY RESULTS T [place] 57 degrees RADIOLOGY RESULTS Interpretation ECG Sinus rhythm Normal ECG When compared with ECG of 11-JUN-2020 13:48, Vent. rate has increased BY ??31 BPM Unconfirmed report - interpretation of this ECG is computer generated - see medical record for final interpretation Confirmed by - EMERGENCY ROOM, PHYSICIAN ([id number]), general expeditor SHAWN RENDON ([id number]) on 11/17/2023 3:38:15 PM RADIOLOGY RESULTS 11/17/2023 3:13 PM MANAGER LANDSCAPE 11/17/2023 3:38 PM MANAGER LANDSCAPE Jorge Roberts MD ECG ORDERABLES RADIOLOGY RESULTS from Last 3 Months Advance Directives For more information, please contact: [phone] * Full Code (Latest Code Status on File) Date Activated Date Inactivated Comments 08/24/2019 1:11 PM 06/11/2020 12:25 PM Per previou s documentation. Question Answer Comments Code status determined by: Other (please documen t) * Full Code Date Activated Date Inactivated Comments 08/21/2019 3:26 AM 08/24/2019 1:11 PM Question Answer Comments Code status determined by: Discussion with siri nt/legal decision maker Care Teams Wrist Liner Relationship Specialty Start Date End Date Leon Han PCP - General Family Practice 08/20/19
--- OUTSIDE RECORDS SUMMARY | 2024-01-26 15:39 | XMS_ITS | Referral Summary ---
Author Name Unknown Organization [facility] Address [address] [place] [address] Care Team Providers Care Shallot Cleaner Name Role Phone Leon Han Primary Care Provider [phone] Encounters Date Type Department Care Team Description 11/17/2023 Travel 11/17/2023 3:21 PM LAND PLANNER - 11/17/2023 7:50 PM [facility] Emergency Dept [address] [place] [address] Jorge Roberts MD Pulmonary nodule; Progressive hearing [...] 30 mL 06/11/2020 Active vitamin D2 (ERGOCALCIFEROL) 62501 units (1250 mcg) capsule Take 50,000 Units [...] Comments Blood Pressure 134/96 11/17/2023 7:42 PM LAND PLANNER Pulse 56 11/17/2023 7:42 PM LAND PLANNER Temperature 36.6 ??C (97.9 ??F) 11/17/2023 3:19 PM CS T Respiratory Rate 18 11/17/2023 7:42 PM LAND PLANNER Oxygen Saturation 99% 11/17/2023 7:42 PM LAND PLANNER Inhaled Oxygen Concentration - - Weight 104.3 kg (229 lb 15 oz) 11/17/2023 3:21 P M LAND PLANNER Height 167.6 cm (5' 6) 11/17/2023 3:19 PM LAND PLANNER Body Mass Index 37.11 11/17/2023 3:19 PM LAND PLANNER Plan of Treatment Not on file Procedures Procedure Name Priority Date/Time Associated Diagnosis Comments CT CHEST PULMONARY EMBOLISM W CONTRAST STAT 11/17/2023 6:29 PM LAND PLANNER CTA HEAD NECK W CONTRAST STAT 11/17/2023 6:[address] HEAD W/O CONTRAST STAT 11/17/2023 6:27 PM LAND PLANNER TROPONIN T, HIGH SENSITIVITY STAT 11/17/2023 5:30 PM LAND PLANNER CBC WITH PLATELETS & DIFFERENTIAL STAT 11/17/2023 3:27 PM LAND PLANNER D DIMER QUANTITATIVE STAT 11/17/2023 3:27 PM LAND PLANNER EXTRA RED TOP TUBE STAT 11/17/2023 3: 27 PM L[facility]NER EXTRA BLUE TOP TUBE STAT 11/17/2023 3 :27 PM LAND PLANNER CBC WITH PLATELETS AND DIFFERENTIAL STAT 11/17/2023 3:27 PM LAND PLANNER EXTRA TUBE STAT 11/17/2023 3:27 PM LAND PLANNER TROPONIN T, HIGH SENSITIVITY STAT 11/17/2023 3:27 PM LAND PLANNER BASIC METABOLIC PANEL STAT 11/17/2023 3:27 PM LAND PLANNER EKG 12-LEAD, TRACING ONLY STAT 11/17/2023 3:13 PM LAND PLANNER from Last 3 Months Results * CT Chest Pulmonary Embolism w Contrast (11/17/2023 6:29 PM LAND PLANNER) Anatomical Region Laterality Modality Chest, SUBRAD CT BODY, UMP CT CHEST Computed Tomography 11/17/2023 6:29 PM LAND PLANNER Impressions 11/17/2023 6:45 PM LAND PLANNER IMPRESSION: 1. ??No pulmonary embolism. 2. ??Previous granulomatous infection. 3. ??New 5 mm groundglass nodule in the right upper lobe is likely inflammatory. 4. ??Changes of autosomal dominant polycystic kidney disease. A few of the cysts are complex. A yearly follow-up could be performed. Nonobstructive stones left kidney. Narrative 11/17/2023 6:45 PM LAND PLANNER EXAM: CT CHEST PULMONARY EMBOLISM W CONTRAST LOCATION: [facility] DATE: 11/17/2023 INDICATION: Chest pain, elevated d-dimer. [...] CT CHEST PULMONARY EMBOLISM W CONTRAST LOCATION: [facility] DATE: 11/17/2023 INDICATION: Chest pain, elevated d-dimer. [...] performed. Nonobstructivestones left kidney. Jorge Roberts MD [facility] CT ORDERABLES * CTA Head Neck with Contrast (11/17/2023 6:28 PM LAND PLANNER) Anatomical Region Laterality Modality Head, SUBRAD CT NEURO, SUBRA D CT NEURO, UMP CT NEURO, RAD CT Computed Tomography 11/17/2023 6:28 PM LAND PLANNER Impressions 11/17/2023 7:08 PM LAND PLANNER IMPRESSION: HEAD CT: 1. ??No acute intracranial process. HEAD CTA: 1. ??Normal CTA [place]. NECK CTA: 1. ??Normal neck CTA. Narrative 11/17/2023 7:08 PM LAND PLANNER EXAM: CT HEAD W/O CONTRAST, CTA HEAD NECK W CONTRAST LOCATION: [facility] DATE/TIME: 11/17/2023 6:27 PM LAND PLANNER INDICATION: Headache, left arm numbness COMPARISON: No [...] aneurysm, or high flow vascular malformation. Standard [place] anatomy. POSTERIOR CIRCULATION: No stenosis/occlusion, [...] CONTRAST, CTA HEAD NECK W CONTRAST LOCATION: [facility] DATE/TIME: 11/17/2023 6:27 PM LAND PLANNER INDICATION: Headache, left arm numbness COMPARISON: No [...] stenosis/occlusion, aneurysm, or high flowvascular malformation. Standard [place] anatomy. POSTERIOR CIRCULATION: No stenosis/occlusion, [...] intracranial process. HEAD CTA: 1. Normal CTA [place]. NECK CTA: 1. Normal neck CTA. Jorge Roberts MD [facility] CT ORDERABLES * CT Head w/o Contrast (11/17/2023 6:27 PM LAND PLANNER) Anatomical Region Laterality Modality Head, SUBRAD CT NEURO, SUBRA D CT NEURO, UMP CT NEURO, RAD CT Computed Tomography 11/17/2023 6:27 PM LAND PLANNER Impressions 11/17/2023 7:08 PM LAND PLANNER IMPRESSION: HEAD CT: 1. ??No acute intracranial process. HEAD CTA: 1. ??Normal CTA [place]. NECK CTA: 1. ??Normal neck CTA. Narrative 11/17/2023 7:08 PM LAND PLANNER EXAM: CT HEAD W/O CONTRAST, CTA HEAD NECK W CONTRAST LOCATION: [facility] DATE/TIME: 11/17/2023 6:27 PM LAND PLANNER INDICATION: Headache, left arm numbness COMPARISON: No [...] aneurysm, or high flow vascular malformation. Standard [place] anatomy. POSTERIOR CIRCULATION: No stenosis/occlusion, [...] CONTRAST, CTA HEAD NECK W CONTRAST LOCATION: [facility] DATE/TIME: 11/17/2023 6:27 PM LAND PLANNER INDICATION: Headache, left arm numbness COMPARISON: No [...] stenosis/occlusion, aneurysm, or high flowvascular malformation. Standard [place] anatomy. POSTERIOR CIRCULATION: No stenosis/occlusion, [...] intracranial process. HEAD CTA: 1. Normal CTA [place]. NECK CTA: 1. Normal neck CTA. Jorge Roberts MD [facility] CT ORDERABLES * Troponin T, High Sensitivity (now) (11/17/2023 5:30 PM LAND PLANNER) Only the most recent of2 resultswithin the time period is included. Troponin T, High Sensitivity 7 <=14 ng/L 11/17/2023 5:56 PM [facility] LABORATORY Comment: Either a High Sensitivity Troponin [...] Unknown Venipuncture / Unknown 11/17/2023 5:30 PM LAND PLANNER 11/17/2023 5:33 PM LAND PLANNER Jorge Roberts MD LAB - BLOOD ORDERABL ES Performing Organization Address City/[facility]/ZIP Co de Phone Number [facility] [address] [facility] [address] [facility] (1st floor, no room number) [place] [address], [facility] [phone] * Extra Red Top Tube (11/17/2023 3:27 PM LAND PLANNER) Pathologist [facility] Hold Specimen JIC 11/17/2023 5:01 PM [facility] LABORATORY Blood STRUCTURE OF LEFT UPPER LIMB / Unknown Venipuncture / Unknown 11/17/2023 3:27 PM LAND PLANNER 11/17/2023 3:47 PM LAND PLANNER Jorge Roberts MD LAB - BLOOD ORDERABL ES [facility] Acute Care Lab [address] Lab (1st floor, no room number) [place] [address], [facility] [phone] * Extra Blue Top Tube (11/17/2023 3:27 PM LAND PLANNER) Hold Specimen [facility] 11/17/2023 5:01 PM LAND PLANNER RH LABORATORY Blood STRUCTURE OF LEFT UPPER LIMB / Unknown Venipuncture / Unknown 11/17/2023 3:27 PM LAND PLANNER 11/17/2023 3:48 PM LAND PLANNER Jorge Roberts MD LAB - BLOOD ORDERABL ES RH LABORATORY [facility] Acute Care Lab [address] (1st floor, no room number) [place] [address] [phone] * (ABNORMAL) CBC with platelets and differential (11/17/2023 3:27 PM LAND PLANNER) WBC Count 9.7 4.0 - 11.0 10e3/uL 11/17/2023 3:51 PM [facility] RH LABORATORY RBC Count 4.48 3.80 - 5.20 10e6/uL 11/17/2023 3:51 PM [facility] RH LABOR[facility]ORY Hemoglobin 12.6 11.7 - 15.7 g/dL 11/17/2023 3:51 PM [facility] RH LABORATORY Hematocrit 41.1 35.0 - 47.0 % 11/17/2023 3:51 PM [facility] RH LABOR[facility]ORY MCV 92 78 - 100 fL 11/17/2023 3:51 PM [facility] RH LAB[facility] MCH 28.1 26.5 - 33.0 pg 11/17/2023 3:51 PM [facility] RH LABORATORY MCHC 30.7(L) 31.5 - 36.5 g/dL 11/17/2023 3:51 PM [facility] RH LABORATORY RDW 13.3 10.0 - 15.0 % 11/17/2023 3:51 PM [facility] Platelet Count 203 150 - 450 10e3/uL 11/17/2023 3:51 PM [facility] % Neutrophils 61 % 11/17/2023 3:51 PM [facility] % Lymphocytes 28 % 11/17/2023 3:51 PM [facility] RH LABORATORY % Monocytes 5 % 11/17/2023 3:51 PM [facility] RH LABORAT[facility] % Eosinophils 5 % 11/17/2023 3:51 PM [facility] RH LABOR[facility] % Basophils 1 % 11/17/2023 3:51 PM [facility] RH LABOR[facility] % Immature Granulocytes 0 % 11/17/2023 3:51 PM [facility] RH LABOR[facility]ORY NRBCs per 100 WBC 0 <1 /100 024 3:51 PM [facility] RH LABOR[facility] Absolute Neutrophils 6.0 1.6 - 8.3 10e3/uL 11/17/2023 3:51 PM [facility] RH LABORATORY Absolute Lymphocytes 2.7 0.8 - 5.3 10e3/uL 11/17/2023 3:51 PM [facility] RH LABORATORY Absolute Monocytes 0.5 0.0 - 1.3 10e3/uL 11/17/2023 3:51 PM [facility] RH LABORATORY Absolute Eosinophils 0.5 0.0 - 0.7 10e3/uL 11/17/2023 3:51 PM [facility] RH LABORATORY Absolute Basophils 0.1 0.0 - 0.2 10e3/uL 11/17/2023 3:51 PM [facility] RH LABORATORY Absolute Immature Granulocytes 0.0 <=0.4 10e3/uL 11/17/2023 3:51 PM [facility] RH LABORATORY Absolute NRBCs 0.0 10e3/uL 11/17/2023 3:51 PM [facility] RH LABORATORY Blood STRUCTURE OF LEFT UPPER LIMB / Unknown Venipuncture / Unknown 11/17/2023 3:27 PM L[facility] PLANNER 11/17/2023 3:48 PM LAND PLANNER Jorge Roberts MD LAB - BLOOD ORDERABL ES RH LABORATORY [facility] Acute Care Lab [address] Lab (1st floor, no room number) [place] [address], [facility] [phone] * (ABNORMAL) D dimer quantitative (11/17/2023 3:27 PM LAND PLANNER) [facility] [address] D-Dimer Quantitative 0.54(H) 0.00 - 0.50 ug/mL FEU 11/17/2023 5:11 PM [facility] RH LABORATORY Blood STRUCTURE OF LEFT UPPER LIMB / Unknown Venipuncture / Unknown 11/17/2023 3:27 PM L[facility]NER 11/17/2023 3:48 PM [facility] Narrative LABORATORY - 11/17/2023 5:11 PM LAND PLANNER This D-dimer assay is intended for use in conjunction with a clinical pretest probability assessment model to exclude pulmonary embolism (PE) and deep venous thrombosis (DVT) in outpatients suspected of PE or DVT. The cut-off value is 0.50 ug/mL FEU. Jorge Roberts MD LAB - BLOOD ORDERABL ES RH LABORATORY [facility] Acute Care Lab [address] [facility] Lab (1st floor, no room number) [place] [address], [facility] [phone] * (ABNORMAL) Basic metabolic panel (BMP) (11/17/2023 3:27 PM LAND PLANNER) [facility] [address] Sodium 143 135 - 145 mmol/L 11/17/2023 4:[address] [facility] Comment:Reference intervals for this test were updated on 07/11/2023 to more accurately reflect our healthy population. There may be differences in the flagging of prior results with similar values performed with this method. Interpretation of those prior results can be made in the context of the updated reference intervals. Potassium 3.8 3.4 - 5.3 mmol/L 11/17/2023 4:[address] [facility] Chloride 112(H) 98 - 107 mmol/L 11/17/2023 4:[address] [facility] Carbon Dioxide (CO2) 19(L) 22 - 29 mmol/L 11/17/2023 4:[address] [facility] Anion Gap 12 7 - 15 mmol/L 11/17/2023 4:[address] [facility] Urea Nitrogen 29.4(H) 6.0 - 20.0 mg/dL 11/17/2023 4:[address] [facility] Creatinine 1.87(H) 0.51 - 0.95 mg/dL 11/17/2023 4:[address] [facility] GFR Estimate 34(L) >60 mL/min/1. 73m2 11/17/2023 4:[address] [facility] Calcium 9.0 8.6 - 10.0 mg/dL 11/17/2023 4:11 PM [facility] RH LABORATORY Glucose 96 70 - 99 mg/dL 11/17/2023 4:11 PM [facility] RH [facility] Blood STRUCTURE OF LEFT UPPER LIMB / Unknown Venipuncture / Unknown 11/17/2023 3:27 PM L[facility]NER 11/17/2023 3:47 PM LAND PL[facility]NER Jorge Roberts MD LAB - BLOOD ORDERABL ES RH LABORATORY [facility] Acute Care Lab [address] Lab (1st floor, no room number) [place] [address], [facility] [phone] * EKG 12 lead (11/17/2023 3:13 PM LAND PLANNER) Systolic Blood Pressure mmHg RADIOLOGY RESULTS Diastolic Blood Pressure mmHg RADIOLOGY RESULTS Ventricular Rate 80 BPM RAD IOLOGY RESULTS Atrial Rate 80 BPM RADIOLOG Y RESULTS MO Interval 164 ms RADIOLOG Y RESULTS QRS Duration 78 ms RADIOLO GY RESULTS QT 374 ms RADIOLOGY RESULTS QTc 431 ms RADIOLOGY RESULTS P [place] 66 degrees RADIOLOGY RESULTS R AXIS 43 degrees RADIOLOGY RESULTS T [place] 57 degrees RADIOLOGY RESULTS Interpretation ECG Sinus rhythm Normal ECG When compared with ECG of 11-JUN-2020 13:48, Vent. rate has increased BY ??31 BPM Unconfirmed report - interpretation of this ECG is computer generated - see medical record for final interpretation Confirmed by - EMERGENCY ROOM, PHYSICIAN ([id number]), content editor SHAWN RENDON ([id number]) on 11/17/2023 3:38:15 PM RADIOLOGY RESULTS 11/17/2023 3:13 PM LAND [facility]NER 11/17/2023 3:38 PM LAND PLANNER Jorge Roberts MD ECG ORDERABLES RADIOLOGY RESULTS from Last 3 Months Advance Directives For more information, please contact: [phone] * Full Code (Latest Code Status on File) Date Activated Date Inactivated Comments 08/24/2019 1:11 PM 06/11/2020 12:25 PM Per tao s documentation. Question Answer Comments Code status determined by: Other (please documen t) * Full Code Date Activated Date Inactivated Comments 08/21/2019 3:26 AM 08/24/2019 1:11 PM Question Answer Comments Code status determined by: Discussion with siri nt/legal decision maker Care Teams Shallot Cleaner Relationship Specialty Start Date End Date Leon Han PCP - General Family Practice 08/20/19
--- OUTSIDE RECORDS SUMMARY | 2024-01-26 15:39 | XMS_ITS | Encounter Summary ---
Author Name Unknown Organization [facility] Address [address] [place] [address] Phone Care Team Providers Care Cross Tie Tram Loader Name Role Phone Calixto Han MD Primary Care Provider Unavail able Reason for Visit * Reason Onset Date Comments Med Refill 01/19/2024 Encounter Details Date Type Department Care Team (Late st Contact Info) Description 01/19/2024 Refill [facility] [address] [facility] [address] [place] [address] Cheryl See RN Social History Tobacco Use [...] saying that she would like Rx at [facility]. Rx resent. I reviewed lab results and recommendations from Dr. Mccracken after her last visit. She is willing to go ahead with iron infusions at [facility]. Iron results are now older than 30 days and will have to be repeated. She would also like to have her repeat BMP done in [place]. Orders faxed including iron studies. * Telephone Encounter - Cheryl See RN - 01/23/2024 11:26 AM CDT Was able to locate information to [facility] in [place]. Rx sent. I left a message for [...] Description 04/04/2024 10:30 AM MDT Office Visit [facility] [address] [facility] [address] [place] [address] Mk Mccracken MD [address] [facility] [address] [place] [address] documented as of this encounter Visit Diagnoses Not on filedocumented in this encounter Care Teams Cross Tie Tram Loader Relationship Specialty Start Date End Date Calixto Han MD PCP - General 05/08/20 documented as of this encounter
--- OUTSIDE RECORDS SUMMARY | 2024-01-26 15:39 | XMS_ITS | Encounter Summary ---
Author Name Unknown Organization [facility] Address [address] [place] [address] Care Team Providers Care Photographic Aide Name Role Phone Leon Han Primary Care Provider [phone] Alissa Desouza MD Unavailable [phone] Encounter Details Date Type Department Care Team ([facility] Contact Info) Description 08/06/2012 Telephone [facility] Behavioral Health Intake [address] [place] [id number] Generic, Behavioral Intake, Social History Tobacco Use Types Packs/Day Years Used Date Smoking Tobacco: Never Assessed Sex and Gender Information Value Date Recorded Sex Assigned at Not on file Gender Identity Not on file Sexual Orientation Not on file documented as of this encounter Miscellaneous Notes * Telephone Encounter - Zia Rodrigues - 08/06/2012 2:56 PM CDT 08/06 Pt has [facility] not local p. p can not auth eval per m[facility] once eval is completed it is sent with mmsi form to them and they will auth. Form sent to [place] . * Telephone Encounter - Royal Amador - 08/06/2012 10:50 AM CDT Referral from primary care clinic in [place]. Alcohol/narcotic/adderall use. No previous per referral. Drinking daily, advil/percocet/vicodin. Is not on any meds although the md today gave her some ativan. Lives with her spouse and 3 kids. Client will call back to schedule jose potter documented in this encounter Plan of Treatment Not on file documented as of this encounter Visit Diagnoses Not on filedocumented in this encounter Care Teams Photographic Aide Relationship Specialty Start Date End Date Leon Han PCP - General Family Practice 08/20/19 Alissa Desouza MD [address] [place] [id number] Assigned Heart and Vascular Provider 08/07/20 10/23/21 documented as of this encounter
--- OUTSIDE RECORDS SUMMARY | 2024-01-26 15:39 | XMS_ITS | Encounter Summary ---
Author Name Unknown Organization [facility] Address [address] [place] [address] Care Team Providers Care Air Drill Operator Name Role Phone Leon Han Primary Care Provider [phone] Encounter Details Date Type Department Care Team [...] on filedocumented in this encounter Care Teams Air Drill Operator Relationship Specialty Start Date End Date Leon Han PCP - General Family Practice 08/20/19 documented as of this encounter
--- OUTSIDE RECORDS SUMMARY | 2024-01-26 15:39 | XMS_ITS | Encounter Summary ---
Author Name Unknown Organization [facility] Address [address] [place] [address] Phone Care Team Providers Care Blast Furnace Auxiliaries Supervisor Name Role Phone Calixto Han MD Primary Care Provider Unavail able Encounter Details Date Type Department Care Team (Late st Contact Info) Description 01/01/2024 [employer] [address] [place] [address] Taylor Torres RN Social History Tobacco Use [...] Description 04/04/2024 10:30 AM MDT Office Visit [facility] [address] [facility] [address] [place], [place] [phone] Mk Mccracken MD [address] [facility] [address] [place], [place] [id number] documented as of this encounter Visit Diagnoses Not on filedocumented in this encounter Care Teams Blast Furnace Auxiliaries Supervisor Relationship Specialty Start Date End Date Calixto Han MD PCP - General 05/08/20 documented as of this encounter
[2024-01-26 15:49] LABS: Hemoglobin* 13.1 gm/dL (12.0-16.0)
== END 2024-01-26 15:34 | disposition home or self-care (01) ==
LOC: NPINS 15:33
PROVIDERS: PCP Family Medicine; Visit Provider Internal Medicine Nephrology
DX: N18.32 Chronic kidney disease, stage 3b (principal); E61.1 Iron deficiency
CPT/HCPCS: 85018

== ENCOUNTER 2024-05-01 12:35 | Outpatient (CLI) | payer MEDICAID, SELFPAY ==
--- OUTSIDE RECORDS SUMMARY | 2024-05-01 12:40 | XMS_ITS | Encounter Summary ---
Author Organization [facility] ut[facility]ima Address [address] [place] [address] Phone Care Team Providers Care Office Secretary Name Role Phone Calixto Han MD Primary Care Provider Unavail able Encounter Details Date Type Department Care Team (Late Contact Info) Description 04/04/2024 Orders Only [employer] [employer] [email or web address] [address] [place], [place] [address] Mk Mccracken MD [address] [facility] [address] [place], [place] [address] Social History Tobacco Use Types Packs/Day Years Used Date Smoking Tobacco: Every Day Cigarettes 0.5 18.5 Started: 2005 Smokeless Tobacco: Never Alcohol Use Standard Drinks/Week Comments Not Currently 0 (1 standard drink = 0.6 oz pur e alcohol) Sex and Gender Information Value Date Recorded Sex Assigned at Not on file Gender Identity Not on file Sexual Orientation Not on file documented as of this encounter Plan of Treatment Upcoming Encounters Date Type Department Care Team (Late Contact Info) Description 08/06/2024 1:00 PM CDT Office Visit [facility] [address] [facility] [email or web address] [place] [address] Araceli Boateng PA [address] [facility] [address] [place], [place] [address] documented as of this encounter Procedures Procedure Name Priority Date/Time Associated Diagnosis Comments RENAL FUNCTION PANEL (RFP) Routine 04/04/2024 12:28 PM CDT HEPATIC FUNCTION PANEL (HFP) Routine 04/04/2024 12:28 PM CDT FERRITIN, SERUM Routine 04/04/2024 12:28 PM CDT IRON AND TIBC, SERUM Routine 04/04/2024 12:28 PM CDT documented in this encounter Results * Ferritin, Serum (04/04/2024 12:28 PM CDT) Ferritin, Serum/Plasma 197 16 - 232 ng/mL [facility] 04/04/2024 12:2 8 PM CDT 04/04/2024 12:29 PM CDT Narrative Resulting Agency Comment Performing Organization Information: ?Site ID: [id number] ?Name: [facility] ?Address: [address] [place] [phone] ?Director: Harshad Frias Mk Mccracken MD LAB BLOOD ORDERABLES [facility] * (ABNORMAL) Renal Function Panel (RFP) (04/04/2024 12:28 PM CDT) Glucose, Serum/Plasma 83 65 - 99 mg/dL [facility] Comment: ? Fasting reference interval Urea nitrogen, Serum/Plasma (BUN) 28(H) 7 - 25 mg/dL [facility] Creatinine, Serum/Plasma 1.71(H) 0.50 - 0.99 mg/dL [facility] Estimated Glomerular Filtration Rate (eGFR) 38(L) > OR = 60 mL/min/1.7 3m2 [facility] Urea nitrogen/Creati nine, Serum/Plasma 16 6 - 22 (calc) [facility] Sodium, Serum/Plasma 140 135 - 146 mmol/L [facility] Potassium, Serum/Plasma 4.3 3.5 - 5.3 mmol/L [facility] Chloride, Serum/Plasma 111(H) 98 - 110 mmol/L [facility] Carbon dioxide CO2), total, Serum/Plasma 19(L) 20 - 32 mmol/L [facility] Calcium, Serum/Plasma 9.0 8.6 - 10.2 mg/dL [facility] Phosphate, Serum/Plasma 5.3(H) 2.5 - 4.5 mg/dL [facility] Albumin, Serum/Plasma 4.3 3.6 - 5.1 g/dL [facility] 04/04/2024 12:2 8 PM CDT 04/04/2024 12:29 PM CDT Narrative Resulting Agency Comment Performing Organization Information: ?Site ID: [id number] ?Name: [facility] ?Address: [address] [place] [phone] ?Director: Harshad Frias Mk Mccracken MD LAB BLOOD ORDERABLES [facility] * Hepatic Function Panel (HFP) (04/04/2024 12:28 PM CDT) Protein, Serum/Plasma 6.6 6.1 - 8.1 g/dL [facility] Albumin, Serum/Plasma 4.3 3.6 - 5.1 g/dL [facility] Globulin, Serum 2.3 1.9 - 3.7 g/dL (calc) [facility] Albumin/Globulin, Serum/Plasma 1.9 1.0 - 2.5 (calc) [facility] Bilirubin, total, Serum/Plasma 0.4 0.2 - 1.2 mg/dL [facility] Bilirubin, direct, Serum/Plasma 0.1 < OR = 0.2 mg/dL [facility] Bilirubin, indirect, Serum/Plasma 0.3 0.2 - 1.2 mg/dL (calc) [facility] Alkaline phosphatase, Serum/Plasma 58 31 - 125 U/L [facility] Aspartate Aminotransferase (AST), Serum/Plasma 15 10 - 30 U/L [facility] Alanine Aminotransferase (ALT), Serum/Plasma 15 6 - 29 U/L [facility] 04/04/2024 12:2 8 PM CDT 04/04/2024 12:29 PM CDT Narrative Resulting Agency Comment Performing Organization Information: ?Site ID: [id number] ?Name: [facility] ?Address: [address] [place] [phone] ?Director: Harshad Frias Mk Mccracken MD LAB BLOOD ORDERABLES Performing Organization Address City/[facility]/ZIP Co de Phone Number [facility] * Iron and TIBC, Serum (04/04/2024 12:28 PM CDT) Iron, Serum/Plasma 76 40 - 190 mcg/dL [facility] Iron binding capacity, Serum/Plasma 327 250 - 450 mcg/dL (calc) [facility] Iron saturation, Serum/Plasma 23 16 - 45 % (calc) [facility] 04/04/2024 12:2 8 PM CDT 04/04/2024 12:29 PM CDT Narrative Resulting Agency Comment Performing Organization Information: ?Site ID: [id number] ?Name: [facility] ?Address: [address] [place] [phone] ?Director: Harshad Frias Mk Mccracken MD LAB BLOOD ORDERABLES Performing Organization Address City/[facility]/ZIP Co de Phone Number [facility] documented in this encounter Visit Diagnoses Not on filedocumented in this encounter Care Teams Office Secretary Relationship Specialty Start Date End Date Calixto Han MD PCP - General 05/08/20 documented as of this encounter
--- OUTSIDE RECORDS SUMMARY | 2024-05-01 12:40 | XMS_ITS | Encounter Summary ---
Author Organization [place] Address [address] [place] [address] Care Team Providers Care Security Tech Name Role Phone Leon Han Primary Care Provider [phone] Encounter Details Date Type Department Care Team (Latest Contact Info) Description 02/12/2024 Travel Social History Tobacco Use Types Packs/Day Years Used Date Smoking Tobacco: Every Day Cigarettes 0.5 24 Started: 04/23/2000 Smokeless Tobacco: Never Comments:patient has [...] on filedocumented in this encounter Care Teams Security Tech Relationship Specialty Start Date End Date Leon Han PCP - General Family Practice 08/20/19 documented as of this encounter
--- OUTSIDE RECORDS SUMMARY | 2024-05-01 12:40 | XMS_ITS | Referral Summary ---
Author Organization [place] Address [address] [place] [address] Care Team Providers Care Contamination Consultant Name Role Phone Leon Han Primary Care Provider [phone] Encounters Date Type Department Care Team Description 02/16/2024 Travel 02/16/2024 10:30 AM CDT Infusion Therapy Visit [facility] [address] [place] [address] [address] [place] [phone] Mk Mccracken MD Stage 3a chronic kidney disease (H) (Primary Dx); Erythropoietin deficiency anemia 02/12/2024 Travel 02/12/2024 10:00 AM CDT Infusion Therapy Visit [address] [place] [phone] Mk Mccracken MD Stage 3a chronic kidney disease (H) (Primary Dx); Chronic kidney disease, stage III (moderate) (H); Erythropoietin deficiency anemia 01/31/2024 Orders Only [facility] [address] [facility], [address] [place] [phone] Mk Mccracken MD Erythropoietin deficiency anemia (Primary Dx); Chronic kidney disease, stage III (moderate) (H) from Last 3 Months Allergies Active Allergy [...] MG tablet Take 20 mg by mouth 2 times daily Active medical cannabis (Patient's own supply) [...] times per day 30 mL 06/11/2020 Active Additional Information Patient not taking.Reported on 02/12/2024 vitamin D2 (ERGOCALCIFEROL) 57358 units (1250 mcg) capsule Take 50,000 Units by mouth once a week X 8 weeks Active Active Problems Problem Noted Date Diagnosed Date Erythropoietin deficiency anemia 01/31/2024 Chronic kidney disease, stage III (moderate) Abscess of postoperative wound of abdominal wall [...] Sign Reading Time Taken Comments Blood Pressure 145/92 02/16/2024 10:41 AM CDT Pulse 60 02/16/2024 10:41 AM CDT Temperature 36.6 ??C (97.9 ??F) 02/16/2024 10:41 AM C DT Respiratory Rate 16 02/16/2024 10:41 AM CDT Oxygen Saturation 100% 02/16/2024 10:41 AM CDT Inhaled Oxygen Concentration - - Weight 106.1 kg (234 lb) 02/12/2024 10:45 AM CDT Height 167.6 cm (5' 6) 11/17/2023 3:19 PM PASSENGER LOCOMOTIVE ENGINEER Body Mass Index 37.77 11/17/2023 3:19 PM PASSENGER LOCOMOTIVE ENGINEER Plan of Treatment Not on file Procedures Procedure Name Priority Date/Time Associated Diagnosis Comments CBC WITH PLATELETS AND DIFFERENTIAL STAT 11/17/2023 3:27 PM PASSENGER LOCOMOTIVE ENGINEER BASIC METABOLIC PANEL STAT 11/17/2023 3:27 PM PASSENGER LOCOMOTIVE ENGINEER ROUTINE UA WITH MICROSCOPIC REFLEX TO CULTURE Routine 08/23/2019 5:25 PM PASSENGER LOCOMOTIVE ENGINEER from Last 3 Months or Most Recently Relevant to Health Maintenance Results * (ABNORMAL) CBC with platelets and differential (11/17/2023 3:27 PM PASSENGER LOCOMOTIVE ENGINEER) WBC Count 9.7 4.0 - 11.0 10e3/uL 11/17/2023 3:51 PM PASSENGER LOCOMOTIVE ENGINEER [facility] RBC Count 4.48 3.80 - 5.20 10e6/uL 11/17/2023 3:51 PM PASSENGER LOCOMOTIVE ENGINEER [facility] Hemoglobin 12.6 11.7 - 15.7 g/dL 11/17/2023 3:51 PM PASSENGER LOCOMOTIVE ENGINEER [facility] Hematocrit 41.1 35.0 - 47.0 % 11/17/2023 3:51 PM PASSENGER LOCOMOTIVE ENGINEER [facility] MCV 92 78 - 100 fL 11/17/2023 3:51 PM PASSENGER LOCOMOTIVE ENGINEER [facility] MCH 28.1 26.5 - 33.0 pg 11/17/2023 3:51 PM PASSENGER LOCOMOTIVE ENGINEER [facility] MCHC 30.7(L) 31.5 - 36.5 g/dL 11/17/2023 3:51 PM PASSENGER LOCOMOTIVE ENGINEER [facility] RDW 13.3 10.0 - 15.0 % 11/17/2023 3:51 PM PASSENGER LOCOMOTIVE ENGINEER [facility] Platelet Count 203 150 - 450 10e3/uL 11/17/2023 3:51 PM PASSENGER LOCOMOTIVE ENGINEER [facility] % Neutrophils 61 % 11/17/2023 3:51 PM PASSENGER LOCOMOTIVE ENGINEER [facility] % Lymphocytes 28 % 11/17/2023 3:51 PM PASSENGER LOCOMOTIVE ENGINEER [facility] % Monocytes 5 % 11/17/2023 3:51 PM PASSENGER LOCOMOTIVE ENGINEER [facility] % Eosinophils 5 % 11/17/2023 3:51 PM PASSENGER LOCOMOTIVE ENGINEER [facility] % Basophils 1 % 11/17/2023 3:51 PM PASSENGER LOCOMOTIVE ENGINEER [facility] % Immature Granulocytes 0 % 11/17/2023 3:51 PM PASSENGER LOCOMOTIVE ENGINEER [facility] NRBCs per 100 WBC 0 <1 /100 024 3:51 PM PASSENGER LOCOMOTIVE ENGINEER [facility] Absolute Neutrophils 6.0 1.6 - 8.3 10e3/uL 11/17/2023 3:51 PM PASSENGER LOCOMOTIVE ENGINEER [facility] Absolute Lymphocytes 2.7 0.8 - 5.3 10e3/uL 11/17/2023 3:51 PM PASSENGER LOCOMOTIVE ENGINEER [facility] Absolute Monocytes 0.5 0.0 - 1.3 10e3/uL 11/17/2023 3:51 PM PASSENGER LOCOMOTIVE ENGINEER [facility] Absolute Eosinophils 0.5 0.0 - 0.7 10e3/uL 11/17/2023 3:51 PM PASSENGER LOCOMOTIVE ENGINEER [facility] Absolute Basophils 0.1 0.0 - 0.2 10e3/uL 11/17/2023 3:51 PM PASSENGER LOCOMOTIVE ENGINEER [facility] Absolute Immature Granulocytes 0.0 <=0.4 10e3/uL 11/17/2023 3:51 PM PASSENGER LOCOMOTIVE ENGINEER [facility]AT[facility] Absolute NRBCs 0.0 10e3/uL 11/17/2023 3:51 PM PASSENGER LOCOMOTIVE ENGINEER [facility] Blood STRUCTURE OF LEFT UPPER LIMB / Unknown Venipuncture / Unknown 11/17/2023 3:27 PM PASSENGER LOCOMOTIVE ENGINEER 11/17/2023 3:48 PM PASSENGER LOCOMOTIVE ENGINEER Jorge Roberts MD LAB - BLOOD ORDERABL ES [facility] [address] Lab (1st floor, no room number) [place] [address], [facility] [phone] * (ABNORMAL) Basic metabolic panel (BMP) (11/17/2023 3:27 PM PASSENGER LOCOMOTIVE ENGINEER) Sodium 143 135 - 145 mmol/L 11/17/2023 4:11 PM PASSENGER LOCOMOTIVE ENGINEER LABORATORY Comment:Reference intervals for this test were updated on 07/11/2023 to more accurately reflect our healthy population. There may be differences in the flagging of prior results with similar values performed with this method. Interpretation of those prior results can be made in the context of the updated reference intervals. Potassium 3.8 3.4 - 5.3 mmol/L 11/17/2023 4:11 PM PASSENGER LOCOMOTIVE ENGINEER [facility]ORY Chloride 112(H) 98 - 107 mmol/L 11/17/2023 4:11 PM PASSENGER LOCOMOTIVE ENGINEER [facility]ORY Carbon Dioxide (CO2) 19(L) 22 - 29 mmol/L 11/17/2023 4:11 PM [facility] Anion Gap 12 7 - 15 mmol/L 11/17/2023 4:11 PM [facility] Urea Nitrogen 29.4(H) 6.0 - 20.0 mg/dL 11/17/2023 4:11 PM [facility] Creatinine 1.87(H) 0.51 - 0.95 mg/dL 11/17/2023 4:11 PM [facility] GFR Estimate 34(L) >60 mL/min/1. 73m2 11/17/2023 4:11 PM [facility] Calcium 9.0 8.6 - 10.0 mg/dL 11/17/2023 4:11 PM [facility] Glucose 96 70 - 99 mg/dL 11/17/2023 4:11 PM [facility] Blood STRUCTURE OF LEFT UPPER LIMB / Unknown Venipuncture / Unknown 11/17/2023 3:27 PM PASSENGER LOCOMOTIVE ENGINEER 11/17/2023 3:47 PM PASSENGER LOCOMOTIVE ENGINEER Jorge Roberts MD LAB - BLOOD ORDERABL ES LABORATORY [facility] [address] [facility] Lab (1st floor, no room number) [place] [address], [facility] [phone] * (ABNORMAL) UA with Microscopic reflex to Culture (08/23/2019 5:25 PM PASSENGER LOCOMOTIVE ENGINEER) Color Urine Yellow 08/23/2019 6:05 PM [facility] Appearance Urine Clear 08/23/20 19 6:05 PM [facility] Glucose Urine 30(A) NEG^Nega tive mg/dL 08/23/2019 6:05 PM [facility] Bilirubin Urine Negative NEG^Nega tive 08/23/2019 6:05 PM [facility] Ketones Urine Negative NEG^Nega tive mg/dL 08/23/2019 6:05 PM [facility] Specific [place] Urine 1.028 1.003 - 1.035 08/23/2019 6:05 PM [facility] Blood Urine Trace(A) NEG^Nega tive 08/23/2019 6:05 PM [facility] pH Urine 5.5 5.0 - 7.0 pH 08/23/2019 6:05 PM [facility] Protein Albumin Urine Negative NEG^Nega tive mg/dL 08/23/2019 6:05 PM [facility] Urobilinogen mg/dL Normal 0.0 - 2.0 mg/dL 08/23/2019 6:05 PM [facility] Nitrite Urine Negative NEG^Nega tive 08/23/2019 6:05 PM [facility] Leukocyte Esterase Urine Negative NEG^Nega tive 08/23/2019 6:05 PM [facility] Source Catheterized Urine 08/23/2019 5:59 PM [facility] WBC Urine <1 0 - 5 /HPF 08/23/2019 6:05 PM [facility] RBC Urine 2 0 - 2 /HPF 08/23/2019 6:05 PM [facility] Mucous Urine Present(A) NEG^Nega tive /LPF 08/23/2019 6:05 PM [facility] Urine specimen collection, catheterized (procedure) URINE SPECIMEN OBTAINED BY CLEAN CATCH PROCEDURE / Unknown 08/23/2019 5:25 PM PASSENGER LOCOMOTIVE ENGINEER 08/23/2019 5:59 PM PASSENGER LOCOMOTIVE ENGINEER Zachery Medina MD LAB - URINE ORDE RABLES [facility] [address] [place] [address], [facility] [phone] from Last 3 Months or Most Recently Relevant to Health Maintenance Advance Directives For more information, please contact: [phone] * Full Code (Latest Code Status on File) Date Activated Date Inactivated Comments 08/24/2019 1:11 PM 06/11/2020 12:25 PM Per tao s documentation. Question Answer Comments Code status determined by: Other (please nita chapa) * Full Code Date Activated Date Inactivated Comments 08/21/2019 3:26 AM 08/24/2019 1:11 PM Question Answer Comments Code status determined by: Discussion with siri nt/legal decision maker Care Teams Contamination Consultant Relationship Specialty Start Date End Date Leon Han PCP - General Family Practice 08/20/19
--- OUTSIDE RECORDS SUMMARY | 2024-05-01 12:40 | XMS_ITS | Clinical Summary ---
Author Organization [facility] Address [address] [place] [address] Phone Care Team Providers Care Beverage Manager Name Role Phone Calixto Han MD Primary [...] mouth 1 (one) time each day Active ondansetron (ZOFRAN) 4 MG tablet Take [...] total) in the evening. 180 tablet 3 04/16/2024 04/16/2025 Active UNABLE TO FIND Med Name: Medical cannabis 04/04/2024 Discontinued (Therapy completed) propranolol LA (INDERAL LA) 80 MG 24 hr capsule Take 80 mg by mouth 1 (one) time each day 11/28/2023 04/04/2024 Discontinued (Therapy completed) lisinopril (PRINIVIL) 20 MG tablet Take 1 tablet (20 mg total) by mouth in the morning and 1 tablet (20 mg total) in the evening. 180 tablet 3 01/23/2024 04/16/2024 Discontinued (Reorder) Active Problems Problem Noted Date [...] Encounters Date Type Department Care Team Description 04/16/20[address] [place] [address] Taylor Torres RN 04/04/2024 12:30 PM CDT Office Visit [facility] [address] [place] [address] Mk Mccracken MD Chronic kidney disease stage 3B ([facility]) (Primary Dx); Autosomal dominant polycystic kidney disease; Essential hypertension; Anemia in chronic kidney disease; Calculus of kidney and ureter; Crohn's disease of both small and large intestine with complication, not otherwise specified ([facility]); Vitamin D deficiency, not otherwise specified 04/04/2024 Orders Only [address] [address] [place] [address] Mk Mccracken MD from Last 3 Months Immunizations Name Administration Dates Next Due Influenza, Injectable, Quadr ivalent, Preservative Free 07/01/2013,07/06/2012,09/17/2010 Family History Medical History Relation Comments Autism spectrum disorder Daughter 1 Depression Daughter 1 Factor V deficiency Daughter 1 h/o PE Polycystic ovary syndrome Daughter 1 Autism spectrum disorder Daughter 2 per mot her Polycystic ovary syndrome Daughter 2 COPD Father Depression Father Diabetes Father Drug abuse Father Heart disease Father Hypertension Father Kidney stone Father Polycystic kidney disease Father ESKD Stroke Father Alcohol abuse Mother Arthritis Mother Hypertension [...] Sign Reading Time Taken Comments Blood Pressure 128/80 04/04/2024 12:35 PM CDT Pulse 56 04/04/2024 12:35 PM CDT Temperature 36.6 ??C (97.9 ??F) 04/04/2024 12:35 PM C DT Respiratory Rate 12 04/04/2024 12:35 PM CDT Oxygen Saturation 100% 04/04/2024 12:35 PM CDT Inhaled Oxygen Concentration - - Weight 106 kg (234 lb 9.6 oz) 04/04/2024 12:35 P M CDT Height 167.6 cm (5' 6) 04/04/2024 12:35 PM CDT Body Mass Index 37.87 04/04/2024 12:35 PM CDT Plan of Treatment Upcoming Encounters Date Type Department Care Team (Late st Contact Info) Description 08/06/2024 1:00 PM CDT Office Visit [facility] [address] [facility] [address] [place], [place] [address] Araceli Boateng PA [address] [facility] [address] [place], [place] [address] Health Maintenance Due Date Last Done Comments Pneumococcal PPSV23 Highest Risk Adult (1 of 3 - PCV13) 2001 Influenza Vaccine (#1) 2024 3, 07/06/2012, 09/17/2010 Procedures Procedure Name Priority Date/Time Associated Diagnosis Comments FERRITIN, SERUM Routine 04/04/2024 12:28 PM CDT RENAL FUNCTION PANEL (RFP) Routine 04/04/2024 12:28 PM CDT HEPATIC FUNCTION PANEL (HFP) Routine 04/04/2024 12:28 PM CDT IRON AND TIBC, SERUM Routine 04/04/2024 12:28 PM CDT from Last 3 Months Results * (ABNORMAL) Renal Function Panel (RFP) (04/04/2024 [...] Performing Organization Information: ?Site ID: [id number] ?Name: [facility] ?Address: [address] [place], [place] [address] [address] ?Director: Harshad Frias Mk Mccracken MD LAB [...] Performing Organization Information: ?Site ID: [id number] ?Name: [facility] ?Address: [address] [place] [phone] ?Director: Harshad Frias Mk Mccracken MD LAB BLOOD ORDERABLES Performing Organization Address [facility] de Phone Number [facility] * Ferritin, Serum (04/04/2024 12:28 PM CDT) Ferritin, Serum/Plasma 197 16 - 232 ng/mL [facility] 04/04/2024 12:2 8 PM CDT 04/04/2024 12:29 PM CDT Narrative Resulting Agency Comment Performing Organization Information: ?Site ID: [id number] ?Name: [facility] ?Address: [address] [place] [phone] ?Director: Harshad Frias Mk Mccracken MD LAB BLOOD ORDERABLES Performing Organization Address [facility] de Phone Number [facility] [...] Performing Organization Information: ?Site ID: [id number] ?Name: [facility] ?Address: [address] [place] [address] [place] [address] ?Director: Harshad Frias Mk Mccracken MD LAB BLOOD ORDERABLES Performing Organization Address [facility] de Phone Number [facility] from Last 3 Months Care Teams Beverage Manager Relationship Specialty Start Date End Date Calixto Han MD PCP - General 05/08/20
--- OUTSIDE RECORDS SUMMARY | 2024-05-01 12:40 | XMS_ITS | Encounter Summary ---
Author Organization [facility] Address [address] [place] [address] Phone Care Team Providers Care Nicker Name Role Phone Calixto Han MD Primary Care Provider Unavail able Reason for Visit * Reason Onset Date Comments Med Refill 04/16/2024 Encounter Details Date Type Department Care Team (Late st Contact Info) Description 04/16/2024 Refill [facility] [address] [place] [address] Taylor Torres RN Social History Tobacco Use [...] Telephone Encounter - Taylor Torres RN - 04/16/2024 4:18 PM CDT Called and reviewed lab results/recommendations with pt. Sent in lisinopril refill per her request.(States pharmacy had old order for once daily) documented in this encounter Plan of Treatment Upcoming Encounters Date Type Department Care Team (Late st Contact Info) Description 08/06/2024 1:00 PM CDT Office Visit [facility] [address] [place] [address] Araceli Boateng PA [address] [facility] [address] [place] [address] documented as of this encounter Visit Diagnoses Not on filedocumented in this encounter Care Teams Nicker Relationship Specialty Start Date End Date Calixto Han MD PCP - General 05/08/20 documented as of this encounter
--- OUTSIDE RECORDS SUMMARY | 2024-05-01 12:40 | XMS_ITS | Encounter Summary ---
Author Organization [place] Address [address] [place] [address] Care Team Providers Care Tunnel Inspector Name Role Phone Leon Han Primary Care Provider [phone] Encounter Details Date Type Department Care Team (Latest Contact Info) Description 02/16/2024 Travel Social History Tobacco Use Types Packs/Day [...] on filedocumented in this encounter Care Teams Tunnel Inspector Relationship Specialty Start Date End Date Leon Han PCP - General Family Practice 08/20/19 documented as of this encounter
--- OUTSIDE RECORDS SUMMARY | 2024-05-01 12:40 | XMS_ITS | Encounter Summary ---
Author Organization [facility] Address [address] [place] [address] Phone Care Team Providers Care Bakery Deliverer Name Role Phone Calixto Han MD Primary Care Provider Unavail able Encounter Details Date Type Department Care Team (Late st Contact Info) Description 04/04/2024 12:30 PM CDT Office Visit [facility] [address] [place] [address] Mk Mccracken MD [address] [facility] [address] [place] [address] Chronic kidney disease stage 3B (CMS-HCC) (Primary Dx); Autosomal dominant polycystic kidney disease; Essential hypertension; Anemia in chronic kidney disease; Calculus of kidney and ureter; Crohn's disease of both small and large intestine with complication, not otherwise specified (CMS-HCC); Vitamin D deficiency, not otherwise specified Social History Tobacco Use Types Packs/Day Years [...] Mass Index 37.87 04/04/2024 12:35 PM CDT documented in this encounter Progress Notes * Mk Mccracken MD - 04/04/2024 12:30 PM CDT RENAL CLINIC NOTE DATE OF VISIT: 04/04/24 SHORTHAND CAMPUZANO FOR MY NOTES: c = with, s = without, p = after, a = before, x = except, asx = asymptomatic, tx = transplant or treatment, sx = symptoms or symptomatic, cx = canceled or culture, rxn = reaction, yday = yesterday, nl = normal, abx = antibiotics, fxn = function, dx = diagnosis, dz = disease, m/h = melena/hematochezia, c/d/l/brito = cramping/dizziness/lightheadedness/headache, d/c = discharge or diarrhea/constipation, f/c/n/v = fevers/chills/nausea/vomiting, cp/sob = chest pain/shortnessof breath, tbv = total body volume, rxn = reaction, tdc = tunneled dialysis catheter, mud analysis well logging captain = prior to admission, hd = hemodialysis, pd = peritoneal dialysis, hhd = home hemodialysis HPI: Tanisha Ritter is a 43 y.o. female c CKD IIIb 2 PCKD who is here for a 4 mo f/u visit. Pt rec'd IV Feraheme x 2 since our last visit and felt better for a while, but then became tired again. Today, she is still feeling tired and has some concern re the acetazolamide dosing bc she is having more BRITO again. She is going to see Neuro again. Pt is taking a lot of Tylenol - up to 6000 mgper day. Her urine is not dark yellow or brown, but is concentrated. Her last labs were stable and the cr was ~1.7. Her appetite has been low in the past few wks. It comes and goes in spurts. I feel hungry, but when I eat I get nauseous. Her clothes are fitting moreloosely than before. She doesn't weigh herself at home. She is not checking her BP at home and brought the machine in today so it can be connected to her phone. Taking the increased dose of lisin 20 mg bid. No c/d/l. She doesn't notice increased urinationp taking acetazolamide. ROS: A complete review of systems was performed and is x as noted above. PMH: Past Medical History: Diagnosis Date Anemia Anxiety state Arthropathy, unspecified, site unspecified Asthma Autosomal dominant polycystic kidney Benign intracranial hypertension pseudotumor cerebri Blood coagulation disorder ([facility]) Chronic kidney disease stage 3B ([facility]) 05/12/2020 Crohn's disease of both small and large intestine with complication ([facility] Deficiency of other vitamin 12/14/2023 Depressive disorder Disorder of digestive system Disorder of thyroid Hypertension Nephrolithiasis Neuropathy Sleep apnea Unexplained visual loss takes acetazolamide per Dr. Reyna ([place]) Urinary tract infection Vitamin D deficiency 12/14/2023 PSH: Past Surgical History: Procedure Laterality Date ADENOIDECTOMY MEDICATIONS: Current Outpatient Medications Ordered in [facility] Medication Sig Dispense Refill acetaZOLAMIDE (DIAMOX) 250 MG tablet Take 500 mg by mouth 2 (two) times a day cholecalciferol (VITAMIN D-3) 25 MCG (1000 UT) tablet Take 1,000 Units by mouth 1 (one) time each day estradiol (ESTRACE) 1 MG tablet Take 1 mg by mouth 1 (one) time each day hydrOXYzine (ATARAX) 50 MG tablet Take 25-50 mg by mouth every 8 (eight) hours if needed for anxiety lisinopril (PRINIVIL) 20 MG tablet Take 1 tablet (20 mg total) by mouth in the morning and 1 tablet(20 mg total) in the evening. 180 tablet 3 ondansetron (ZOFRAN) 4 MG tablet Take by mouth every 6 (six) hours if needed for nausea or vomiting oxyCODONE (ROXICODONE) 10 MG immediate release tablet Take 10 mg by mouth in the morning and 10 mg at noon and 10 mg in the evening and 10 mg before bedtime. polyethylene glycol (GLYCOLAX) 17 GM/SCOOP powder Take 17 g by mouth 1 (one) time each day ALLERGIES: Allergies as of 04/04/2024 - Reviewed 04/04/2024 Allergen Reaction Noted Ibuprofen Other (see comments) 05/08/2020 FH: Family History Problem Relation Age of Onset Alcohol abuse Mother Arthritis Mother Hypertension Mother Stroke Father Drug abuse Father Diabetes Father COPD Father Depression Father Heart disease Father Hypertension Father Polycystic kidney disease Father ESKD Kidney stone Father Depression Sister Alcohol abuse Sister Hypertension Sister Polycystic kidney disease, adult type Sister Multiple sclerosis Sister Polycystic kidney disease Sister Malignant neoplasm of brain Sister Depression Daughter Autism spectrum disorder Daughter Factor V deficiency Daughter h/o PE Polycystic ovary syndrome Daughter Autism spectrum disorder Daughter per mother Polycystic ovary syndrome Daughter Hearing loss Son ADD / ADHD Son SH: Social History Socioeconomic History Marital status: Not on file Spouse name: Not on file Number of children: Not on file Years of education: Not on file Highest education level: Not on file Occupational History Not on file Tobacco Use Smoking status: Every Day Current packs/day: 0.50 Average packs/day: 0.5 packs/day for 18.5 years (9.2 ttl pk-yrs) Types: Cigarettes Start date: 2005 Smokeless tobacco: Never Vaping Use Vaping status: Never Used Substance and Sexual Activity Alcohol use: Not Currently Drug use: Never Comment: Medical Sexual activity: Not on file Other Topics Concern Not on file Social History Narrative Not on file Social Determinants of Health Financial Resource Strain: Not on file Food Insecurity: Not on file Transportation Needs: Not on file Physical Activity: Not on file Stress: Not on file Social Connections: Not on file Intimate Partner Violence: Not on file Housing Stability: Not on file PHYSICAL EXAM: Visit Vitals BP 128/80 (BP Location: Left arm, Patient Position: Sitting, BP Cuff Size: Adult) Pulse 56 Temp 97.9 ??F (36.6 ??C) (Temporal) Resp 12 Ht 5' 6 (1.676 m) Wt 234 lb 9.6 oz (106 kg) SpO2 100% BMI 37.87 kg/m?? OB Status Having periods Smoking Status Every Day BSA 2.22 m?? GENERAL: alert, interactive, NAD HEENT: normocephalic, no obv scleral icterus/jaundice CV: RRR c 2/6 m, tr ble edema RESP: CTA B c good efforts GI: abd o/s/nt/nd NEURO: gait ok c walker, non-focal exam PSYCH: mood good, affect appropriate LABS: Reviewed c pt - renal panel, pr/cr, CBC, fe studies, Vit D, PTH A/P: Tanisha Ritter is a 43 y.o. female c CKD IIIb 2 PCKD. 1. CKD IIIb 2 PCKD. Pt's cr remains stable in the high 1s and she does not have any uremic sx or issues c volume. The goal is to keep her SBP in the 120s to slow progression of CKD. No significant proteinuria noted. A. Check renal panel today. 2. HTN. Pt's BP is decently controlled today. She is tolerating the increased lisin dose and she isnow at max dose. She is also on acetazolamide. A. Continue lisin 20 mg bid. B. Continue acetazolamide at same dose. C. We will help connect the BP machine to her phone today and she will check BP at home. 3. NAGMA. Pt is on acetazolamide for her vision loss. The last CO2 was 4.8 and K was 4.4. A. Continue same dose of acetazolamide. She will contact Neuro re the headaches and then let us know if the dose was changed. 4. Fe def anemia. She rec'd IV Feraheme x 2 and felt better. Her last hb was fine. She's tired again. She does not have a menstrual cycle bc of a hysterectomy. A. Check fe studies again. If low, we can repeat IV fe. 5. Kidney stones. Pt has non-obst L kidney stones on recent CT. These are prob related to Crohn's. Asx. A. Follow clinically. B. Drink water. 6. Pain. She has been taking up to 6000 mg of aceta for pain. She does not take any ibu. A. Check LFTs. 7. Follow up. 4 mos c Araceli/Edda or me. Total time > 40 minutes. Attestation: I have reviewed today's relevant vital signs, notes, medications, labs and/or imaging. Mk Mccracken MD [facility] [phone] documented in this encounter Plan of Treatment Upcoming Encounters Date Type Department Care Team (Late st Contact Info) Description 08/06/2024 1:00 PM CDT Office Visit [facility] [address] [place] [address] Araceli Boateng PA [address] [facility] [address] [place], [place] [id number] documented as of this encounter Visit Diagnoses Diagnosis Chronic kidney disease stage 3B ([facility])- Primary Autosomal dominant polycystic kidney disease Essential hypertension Anemia in chronic kidney disease Calculus of kidney and ureter Crohn's disease of both small and large intestine with complication, not otherwise specified ([facility]) Vitamin D deficiency, not otherwise specified documented in this encounter Care Teams Bakery Deliverer Relationship Specialty Start Date End Date Calixto Han MD PCP - General 05/08/20 documented as of this encounter
--- OUTSIDE RECORDS SUMMARY | 2024-05-01 12:40 | XMS_ITS | Encounter Summary ---
Author Organization [facility] Address [address] [place] [address] Phone Care Team Providers Care Chief Digital Media Officer Name Role Phone Calixto Han MD Primary Care Provider Unavail able Reason for Visit * Reason Onset Date Comments Med Refill 01/19/2024 Encounter Details Date Type Department Care Team (Late st Contact Info) Description 01/19/2024 Refill [facility] [address] [facility] [address] [place] [address] Cheryl See RN Social History Tobacco Use [...] saying that she would like Rx at [facility]. Rx resent. I reviewed lab results and recommendations from Dr. Mccracken after her last visit. She is willing to go ahead with iron infusions at [facility]. Iron results are now older than 30 days and will have to be repeated. She would also like to have her repeat BMP done in [place]. Orders faxed including iron studies. * Telephone Encounter - Cheryl See RN - 01/23/2024 11:26 AM CDT Was able to locate information to [facility] in [place]. Rx sent. I left a message for [...] Description 08/06/2024 1:00 PM CDT [facility] Visit [facility] [address] [facility] [address] [place] [address] Araceli Boateng PA [address] [facility] [address] [place] [address] documented as of this encounter Visit Diagnoses Not on filedocumented in this encounter Care Teams Chief Digital Media Officer Relationship Specialty Start Date End Date Calixto Han MD PCP - General 05/08/20 documented as of this encounter
--- OUTSIDE RECORDS SUMMARY | 2024-05-01 12:40 | XMS_ITS | Clinical Summary ---
Author Organization [facility] Address [address] [place] [address] Care Team Providers Care B2B Appointment Setter Name Role Phone Han, Leon Primary Care Provider [phone] Allergies Active Allergy Reactions Criticality Noted Date [...] not taking.Reported on 02/12/2024 vitamin D2 (ERGOCALCIFEROL) 65192 units (1250 mcg) capsule Take 50,000 Units [...] Date Type Department Care Team Description 02/16/2024 10:30 AM CDT Infusion Therapy Visit [facility] [id number] [place] [address] [address] [place] [address] Mk Mccracken MD Stage 3a chronic kidney disease (H) (Primary Dx); Erythropoietin deficiency anemia 02/16/2024 Travel 02/12/2024 10:00 AM CDT Infusion Therapy Visit [facility] [id number] [place] [address] [address] [place] [address] Mk Mccracken MD Stage 3a chronic kidney disease (H) (Primary Dx); Chronic kidney disease, stage III (moderate) (H); Erythropoietin deficiency anemia 02/12/2024 Travel 01/31/2024 Orders Only [facility] [address] [facility], [address] [place] [address] Mk Mccracken MD Erythropoietin deficiency anemia (Primary Dx); Chronic kidney disease, stage III (moderate) (H) from Last 3 Months Family History Medical [...] 167.6 cm (5' 6) 11/17/2023 3:19 PM TEXTILES SALES REPRESENTATIVE Body Mass Index 37.77 11/17/2023 3:19 PM TEXTILES SALES REPRESENTATIVE Plan of Treatment Health Maintenance Due Date Last Done Comments ADVANCE CARE PLANNING 1982 ANNUAL REVIEW OF HM ORDERS 1982 LIPID 1982 MAMMO SCREENING 1982 MICROALBUMIN 1982 TSH W/FREE T4 REFLEX 1982 URINE DRUG SCREEN 1982 YEARLY PREVENTIVE VISIT 1982 Pneumococcal Vaccine: Pediatrics (0 to 5 Years) and At-Risk Patients (6 to 64 Years) (1 of 2 - PCV) 1988 HIV SCREENING 1997 HEPATITIS C SCREENING 2000 HEPATITIS B IMMUNIZATION (1 of 3 - 19+ 3-dose series) 2001 PAP 2003 DTAP/TDAP/TD IMMUNIZATION (1 - Tdap) 2007 COVID-19 Vaccine (1 - 24 season) 2023 PHQ-2 (once per calendar year) 2023 INFLUENZA VACCINE (#1) 2024 3, 07/06/2012, 09/17/2010 BMP 11/17/2024 11/17/2023, 05/17, 08/24/2019, Additional history exists HEMOGLOBIN 11/17/2024 11/17/2023, 05/17, 08/22/2019, Additional history exists GLUCOSE 11/17/2026 11/17/2023, 05/17, 08/24/2019, Additional history exists URINALYSIS Completed 08/23/2019, 02/2019, 03/23/2009, Additional history exists HPV IMMUNIZATION Aged Out [...] PLATELETS AND DIFFERENTIAL STAT 11/17/2023 3:27 PM TEXTILES SALES REPRESENTATIVE BASIC METABOLIC PANEL STAT 11/17/2023 3:27 PM TEXTILES SALES REPRESENTATIVE ROUTINE UA WITH MICROSCOPIC REFLEX TO CULTURE Routine 08/23/2019 5:25 PM TEXTILES SALES REPRESENTATIVE from Last 3 Months or Most Recently Relevant to Health Maintenance Results * (ABNORMAL) CBC with platelets and differential (11/17/2023 3:27 PM TEXTILES SALES REPRESENTATIVE) WBC Count 9.7 4.0 - 11.0 10e3/uL 11/17/2023 3:51 PM TEXTILES SALES REPRESENTATIVE [facility] RBC Count 4.48 3.80 - 5.20 10e6/uL 11/17/2023 3:51 PM TEXTILES SALES REPRESENTATIVE [facility] Hemoglobin 12.6 11.7 - 15.7 g/dL 11/17/2023 3:51 PM TEXTILES SALES REPRESENTATIVE [facility] Hematocrit 41.1 35.0 - 47.0 % 11/17/2023 3:51 PM TEXTILES SALES REPRESENTATIVE [facility] MCV 92 78 - 100 fL 11/17/2023 3:51 PM TEXTILES SALES REPRESENTATIVE [facility] MCH 28.1 26.5 - 33.0 pg 11/17/2023 3:51 PM TEXTILES SALES REPRESENTATIVE [facility] MCHC 30.7(L) 31.5 - 36.5 g/dL 11/17/2023 3:51 PM TEXTILES SALES REPRESENTATIVE [facility] RDW 13.3 10.0 - 15.0 % 11/17/2023 3:51 PM TEXTILES SALES REPRESENTATIVE [facility] Platelet Count 203 150 - 450 10e3/uL 11/17/2023 3:51 PM TEXTILES SALES REPRESENTATIVE [facility] % Neutrophils 61 % 11/17/2023 3:51 PM TEXTILES SALES REPRESENTATIVE [facility] % Lymphocytes 28 % 11/17/2023 3:51 PM TEXTILES SALES REPRESENTATIVE [facility] % Monocytes 5 % 11/17/2023 3:51 PM TEXTILES SALES REPRESENTATIVE [facility] % Eosinophils 5 % 11/17/2023 3:51 PM TEXTILES SALES REPRESENTATIVE [facility] % Basophils 1 % 11/17/2023 3:51 PM TEXTILES SALES REPRESENTATIVE [facility] % Immature Granulocytes 0 % 11/17/2023 3:51 PM TEXTILES SALES REPRESENTATIVE [facility] NRBCs per 100 WBC 0 <1 /100 024 3:51 PM TEXTILES SALES REPRESENTATIVE [facility] Absolute Neutrophils 6.0 1.6 - 8.3 10e3/uL 11/17/2023 3:51 PM TEXTILES SALES REPRESENTATIVE [facility] Absolute Lymphocytes 2.7 0.8 - 5.3 10e3/uL 11/17/2023 3:51 PM TEXTILES SALES REPRESENTATIVE [facility] Absolute Monocytes 0.5 0.0 - 1.3 10e3/uL 11/17/2023 3:51 PM TEXTILES SALES REPRESENTATIVE [facility] Absolute Eosinophils 0.5 0.0 - 0.7 10e3/uL 11/17/2023 3:51 PM TEXTILES SALES REPRESENTATIVE [facility] Absolute Basophils 0.1 0.0 - 0.2 10e3/uL 11/17/2023 3:51 PM TEXTILES SALES REPRESENTATIVE [facility] Absolute Immature Granulocytes 0.0 <=0.4 10e3/uL 11/17/2023 3:51 PM TEXTILES SALES REPRESENTATIVE [facility] Absolute NRBCs 0.0 10e3/uL 11/17/2023 3:51 PM TEXTILES SALES REPRESENTATIVE [facility] Blood STRUCTURE OF LEFT UPPER LIMB / Unknown Venipuncture / Unknown 11/17/2023 3:27 PM TEXTILES SALES REPRESENTATIVE 11/17/2023 3:48 PM TEXTILES SALES REPRESENTATIVE Jorge Roberts MD LAB - BLOOD ORDERABL ES [facility] [address] [facility] (1st floor, no room number) [place] [address], [facility] [phone] * (ABNORMAL) Basic metabolic panel (BMP) (11/17/2023 3:27 PM TEXTILES SALES REPRESENTATIVE) Sodium 143 135 - 145 mmol/L 11/17/2023 4:11 PM [facility] Comment:Reference intervals for this test were updated on 07/11/2023 to more accurately reflect our healthy population. There may be differences in the flagging of prior results with similar values performed with this method. Interpretation of those prior results can be made in the context of the updated reference intervals. Potassium 3.8 3.4 - 5.3 mmol/L 11/17/2023 4:11 PM [facility] Chloride 112(H) 98 - 107 mmol/L 11/17/2023 4:11 PM [facility] Carbon Dioxide (CO2) 19(L) 22 - 29 mmol/L 11/17/2023 4:11 PM [facility] Anion Gap 12 7 - 15 mmol/L 11/17/2023 4:11 PM [facility] Urea Nitrogen 29.4(H) 6.0 - 20.0 mg/dL 11/17/2023 4:11 PM [facility] Creatinine 1.87(H) 0.51 - 0.95 mg/dL 11/17/2023 4:11 PM [facility] GFR Estimate 34(L) >60 mL/min/1. 73m2 11/17/2023 4:11 PM [facility] Calcium 9.0 8.6 - 10.0 mg/dL 11/17/2023 4:11 PM [facility] Glucose 96 70 - 99 mg/dL 11/17/2023 4:11 PM [facility] Blood STRUCTURE OF LEFT UPPER LIMB / Unknown Venipuncture / Unknown 11/17/2023 3:27 PM TEXTILES SALES REPRESENTATIVE 11/17/2023 3:47 PM TEXTILES SALES REPRESENTATIVE Jorge Roberts MD LAB - BLOOD ORDERABL ES [facility] [address] [facility] Lab (1st floor, no room number) [place] [address], [facility] [phone] * (ABNORMAL) UA with Microscopic reflex to Culture (08/23/2019 5:25 PM TEXTILES SALES REPRESENTATIVE) Color Urine Yellow 08/23/2019 6:05 PM [facility] Appearance Urine Clear 08/23/20 19 6:05 PM [facility] Glucose Urine 30(A) NEG^Nega tive mg/dL 08/23/2019 6:05 PM [facility] Bilirubin Urine Negative NEG^Nega tive 08/23/2019 6:05 PM [facility] Ketones Urine Negative NEG^Nega tive mg/dL 08/23/2019 6:05 PM [facility] Specific Hartman Urine 1.028 1.003 - 1.035 08/23/2019 6:05 PM [facility] Blood Urine Trace(A) NEG^Nega tive 08/23/2019 6:05 PM [facility] pH Urine 5.5 5.0 - 7.0 pH 08/23/2019 6:05 PM [facility] Protein Albumin Urine Negative NEG^Nega tive mg/dL 08/23/2019 6:05 PM [facility] Urobilinogen mg/dL Normal 0.0 - 2.0 mg/dL 08/23/2019 6:05 PM [facility] Nitrite Urine Negative NEG^Nega tive 08/23/2019 6:05 PM [facility] Leukocyte Esterase Urine Negative NEG^Nega tive 08/23/2019 6:05 PM [facility] Source Catheterized Urine 08/23/2019 5:59 PM [facility] WBC Urine <1 0 - 5 /HPF 08/23/2019 6:05 PM [facility] RBC Urine 2 0 - 2 /HPF 08/23/2019 6:05 PM [facility] Mucous Urine Present(A) NEG^Nega tive /LPF 08/23/2019 6:05 PM [facility] Urine specimen collection, catheterized (procedure) URINE SPECIMEN OBTAINED BY CLEAN CATCH PROCEDURE / Unknown 08/23/2019 5:25 PM TEXTILES SALES REPRESENTATIVE 08/23/2019 5:59 PM TEXTILES SALES REPRESENTATIVE Zachery Medina MD LAB - URINE JOHN BAUTISTA [facility] Organization Address City/State/ZIP Co de Phone Number [facility] [address] [place] [address], [facility] [phone] from Last 3 Months or Most Recently Relevant to Health Maintenance Advance Directives For more information, please contact: [phone] * Full Code (Latest Code Status on File) Date Activated Date Inactivated Comments 08/24/2019 1:11 PM 06/11/2020 12:25 PM Per previou s documentation. Question Answer Comments Code status determined by: Other (please nita t) * Full Code Date Activated Date Inactivated Comments 08/21/2019 3:26 AM 08/24/2019 1:11 PM Question Answer Comments Code status determined by: Discussion with siri nt/legal decision maker Care Teams B2B Appointment Setter Relationship Specialty Start Date End Date Leon Han PCP - General Family Practice 08/20/19
--- OUTSIDE RECORDS SUMMARY | 2024-05-01 12:40 | XMS_ITS | Encounter Summary ---
Author Organization [place] Address [address] [place] [address]. [place] [address] Care Team Providers Care Gun Stock Checker Name Role Phone HanLeon Primary Care Provider [phone] Reason for Visit * Reason Comments Infusion Feraheme #2 * Treatment and Therapy Plans (Routine) - Authorized Specialty Diagnoses / Procedures Referred By Contac t Referred To Contact Infusion Therapy Diagnoses Stage 3a chronic kidney disease (H) Erythropoietin deficiency anemia Procedures ZZC FERUMOXYTOL NON-ESRD, 1MG Mk Mccracken MD [address] [place] [address] Rh Cancer Infus [facility] [place] [id number] [place] [address] Referral ID Status Reason Start Date Expiration Date V isits Requested Visits Authorized [id number] Authorized 01/31/2024 10/15/2024 99 99 Encounter Details Date Type Department Care Team (Latest Contact Info) Description 02/16/2024 10:30 AM CDT Infusion Therapy Visit [facility] [address] [place] [address] Mk Mccracken MD [address] [place] [address] Stage 3a chronic kidney disease (H) (Primary Dx); Erythropoietin deficiency anemia Social History Tobacco Use Types Packs/Day Years [...] CDT Inhaled Oxygen Concentration - - Weight - - Height - - Body Mass Index - - documented in this encounter Progress Notes * Radha Tejada RN - 02/16/2024 10:30 AM CDT Infusion Nursing Note: Tanisha Cain Stone presents today for Feraheme #2. Patient seen by provider today: No Hand Polisher present during visit today: Not Applicable. Note: N/A. Intravenous Access: Peripheral IV placed. Treatment Conditions: Not Applicable. Post Infusion Assessment: Patient tolerated infusion without incident. Patient observed for 30 minutes post Feraheme per protocol. Blood return noted pre and post infusion. Site patent and intact, free from redness, edema or discomfort. No evidence of extravasations. Access discontinued per protocol. Discharge Plan: Discharge instructions reviewed with: Patient. Patient and/or family verbalized understanding of discharge instructions and all questions answered. AVS to patient via [employer]. Patient will return to nephrology for next appointment. Patient discharged in stable condition accompanied by: . Departure Mode: Ambulatory with walker. Radha Tejada RN documented in this encounter Plan of Treatment Not on file documented as of this encounter Visit Diagnoses Diagnosis Stage 3a chronic kidney disease (H)- Primary Erythropoietin deficiency anemia Other specified anemias documented in this encounter Administered Medications Inactive Administered Medications - up to 3 most recent administrations Medication Order MAR Action Action Date Dose Rate Site ferumoxytol (FERAHEME) 510 mg in sodium chloride 0.9 % 127 mL intermittent infusion 510 mg, Intravenous, Administer over 15 Minutes, at 508 mL/hr, ONCE, On Mon02/16/24 at 1100, For 1 dose, Give 2nd dose at least 3 to 8 days after 1st dose. $New Bag 02/16/2024 11:08 AM CDT 510 mg 508 mL/hr sodium chloride (PF) 0.9% PF flush 3-20 mL 3-20 mL, Intracatheter, EVERY 1 MIN PRN, line flush, post meds or blood draw, Starting on Mon02/16/24 at 1046, PIV: 3 mL after each use & PRN to access patency Midline, valved catheters, or PORT- 10mL after each use, PRN to access patency, 20 mL post blood draw Non-valved catheters: 10 mL after each use & PRN to access patency; 20mL flush pre and post blood draws or blood administration Apheresis: only for use when patient is NOT under care of apheresis services; 10 mL after each use & PRN to assess patency; 20 mL after blood draw. $Given 02/16/2024 11:55 AM CDT 20 mLs sodium chloride 0.9% BOLUS 250 mL Intravenous, 250 mL, ONCE, On Mon02/16/24 at 1100, For 1 dose, Concomitant fluids $New Bag 02/16/2024 11:14 AM CDT 250 mLs documented in this encounter Care Teams Gun Stock Checker Relationship Specialty Start Date End Date Leon Han PCP - General Family Practice 08/20/19 documented as of this encounter
--- OUTSIDE RECORDS SUMMARY | 2024-05-01 12:40 | XMS_ITS | Encounter Summary ---
Author Organization [facility] Address [address] [place] [address] Phone Care Team Providers Care Rim Buster Name Role Phone Calixto Han MD Primary Care Provider Unavail able Encounter Details Date Type Department Care Team (Late st Contact Info) Description 01/29/2024 Telephone [facility] [address] [place] [address] Taylor Torres, KHADIJAH Social History Tobacco Use Types Packs/Day Years [...] Description 08/06/2024 1:00 PM CDT Office Visit [facility] [address] [place] [address] Araceli Boateng PA [address] [facility] [address] [place] [address] documented as of this encounter Visit Diagnoses Not on filedocumented in this encounter Care Teams Rim Buster Relationship Specialty Start Date End Date Calixto Han MD PCP - General 05/08/20 documented as of this encounter
--- OUTSIDE RECORDS SUMMARY | 2024-05-01 12:40 | XMS_ITS | Encounter Summary ---
Author Organization [place] Address [address] [place] [address]. [place] [address] Care Team Providers Care Apparatus Operator Name Role Phone HanLeon Primary Care Provider [phone] Reason for Visit * Reason Comments Infusion Feraheme * Treatment and Therapy Plans (Routine) - Authorized Specialty Diagnoses / Procedures Referred By Contac t Referred To Contact Infusion Therapy Diagnoses Stage 3a chronic kidney disease (H) Erythropoietin deficiency anemia Procedures ZZC FERUMOXYTOL NON-ESRD, 1MG Mk Mccracken MD [address] [place] [address] Rh Cancer Infus [facility] [address] [place] [address] Referral ID Status Reason Start Date Expiration Date V isits Requested Visits Authorized [id number] Authorized 01/31/2024 10/15/2024 99 99 Encounter Details Date Type Department Care Team (Latest Contact Info) Description 02/12/2024 10:00 AM CDT Infusion Therapy Visit [facility] [address] [place] [address] Mk Mccracken MD [address] [place], [place] [address] Stage 3a chronic kidney disease (H) (Primary Dx); Chronic kidney disease, stage III (moderate) (H); Erythropoietin deficiency anemia Social History Tobacco Use [...] Sign Reading Time Taken Comments Blood Pressure 131/85 02/12/2024 10:45 AM CDT Pulse 56 02/12/2024 10:45 AM CDT Temperature 36.7 ??C (98 ??F) 02/12/2024 10:45 AM CDT Respiratory Rate 18 02/12/2024 10:45 AM CDT Oxygen Saturation 100% 02/12/2024 10:45 AM CDT Inhaled Oxygen Concentration - - Weight 106.1 kg (234 lb) 02/12/2024 10:45 AM CDT Height - - Body Mass Index 37.77 11/17/2023 3:19 PM APPLICATIONS PROJECT MANAGER documented in this encounter Progress Notes * Pam Anna RN - 02/12/2024 10:00 AM CDT Infusion Nursing Note: Tanisha Ritter presents today for [facility]. Patient seen by provider today: No Underwriter present during visit today: Not Applicable. Note: NA. Intravenous Access: No Intravenous access/labs at this visit. Peripheral IV placed (difficult stick) Treatment Conditions: Not Applicable. Post Infusion Assessment: Patient tolerated infusion without incident. Blood return noted pre and post infusion. Site patent and intact, free from redness, edema or discomfort. No evidence of extravasations. Access discontinued per protocol. Patient observed for 30 minutes post infusion per protocol. Discharge Plan: [facility] Patient will return 02/15 for next appointment. Patient discharged in stable condition accompanied by: . Departure Mode: Ambulatory with walker. Pam Anna RN documented in this encounter Plan of Treatment Not on file documented as of this encounter Visit Diagnoses Diagnosis Stage 3a chronic kidney disease (H)- Primary Chronic kidney disease, stage III (moderate) (H) Chronic kidney disease, Stage III (moderate) Erythropoietin deficiency anemia Other specified anemias documented in this encounter Administered Medications Inactive Administered Medications - up to 3 most recent administrations Medication Order MAR Action Action Date Dose Rate Site ferumoxytol (FERAHEME) 510 mg in sodium chloride 0.9 % 127 mL intermittent infusion 510 mg, Intravenous, Administer over 15 Minutes, at 508 mL/hr, ONCE, On Mon02/12/24 at 1115, For 1 dose, 1st dose. $New Bag 02/12/2024 11:26 AM CDT 510 mg 508 mL/hr sodium chloride 0.9% BOLUS 250 mL Intravenous, 250 mL, ONCE, On Mon02/12/24 at 1115, For 1 dose, Concomitant fluids $New Bag 02/12/2024 11:25 AM CDT 250 mLs documented in this encounter Care Teams Apparatus Operator Relationship Specialty Start Date End Date Leon Han PCP - General Family Practice 08/20/19 documented as of this encounter
--- OUTSIDE RECORDS SUMMARY | 2024-05-01 12:41 | XMS_ITS | Encounter Summary ---
Author Organization [place] Address [facility] [place] [address] Care Team Providers Care Baseball Coach Name Role Phone Leon Han Primary Care Provider [phone] Encounter Details Date Type Department Care Team (Late st Contact Info) Description 01/31/2024 Orders Only [facility] [address] [facility] [address] [place] [address] [place] [address] [place] [address] [address] [place] [address] Erythropoietin deficiency anemia (Primary Dx); Chronic kidney disease, stage III (moderate) (H) Social History Tobacco Use Types Packs/Day Years [...] on file documented as of this encounter Progress Notes * Stevie Leon RPH - 01/31/2024 10:50 AM CDT Images from the original note were not included. documented in this encounter Plan of Treatment Not on file documented as of this encounter Visit Diagnoses Diagnosis Erythropoietin deficiency anemia- Primary Other specified anemias Chronic kidney disease, stage III (moderate) (H) Chronic kidney disease, Stage III (moderate) documented in this encounter Care Teams Baseball Coach Relationship Specialty Start Date End Date Leon Han PCP - General Family Practice 08/20/19 documented as of this encounter
--- OUTSIDE RECORDS SUMMARY | 2024-05-01 12:41 | XMS_ITS | Encounter Summary ---
Author Organization [place] Address [address] [place] [address] Care Team Providers Care Separating Machine Operator Name Role Phone Leon Han Primary Care Provider Alissa Desouza MD Unavailable [phone] Encounter Details Date Type Department Care Team ([facility] st Contact Info) Description 01/07/2013 Telephone [facility] Behavioral Health Intake [address] [place] [phone] Generic, Behavioral IntakeMD Social History Tobacco [...] on filedocumented in this encounter Care Teams Separating Machine Operator Relationship Specialty Start Date End Date Leon Han PCP - General Family Practice 08/20/19 Alissa Desouza MD [address] [place] [address] [id number] Assigned Heart and Vascular Provider 08/07/20 10/23/21 documented as of this encounter
--- OUTSIDE RECORDS SUMMARY | 2024-05-01 12:41 | XMS_ITS | Encounter Summary ---
Author Organization [place] Address [address] [place] [address]. [place] [address] Care Team Providers Care Bulk Mail Technician Name Role Phone Leon Han Primary Care Provider [phone] Alissa Desouza MD Unavailable [phone] Encounter Details Date Type Department Care Team ([facility] st Contact Info) Description 08/06/2012 Telephone [facility] Behavioral Health Intake [address] [place] [phone] Generic, Behavioral Intake, Social History Tobacco Use Types Packs/Day Years Used Date Smoking Tobacco: Never Assessed Sex and Gender Information Value Date Recorded Sex Assigned at Not on file Gender Identity Not on file Sexual Orientation Not on file documented as of this encounter Miscellaneous Notes * Telephone Encounter - Zia Rodrigues - 08/06/2012 2:56 PM CDT 08/06 Pt has [facility]msi not local p. p can not auth eval per mmsi once eval is completed it is sent with mmsi form to them and they will auth. Form sent to [facility] . * Telephone Encounter - Royal Amador - 08/06/2012 10:50 AM CDT Referral from primary care clinic in [place]. Alcohol/narcotic/adderall use. No previous per referral. Drinking daily, advil/percocet/vicodin. Is not on any meds although the md today gave her some ativan. Lives with her spouse and 3 kids. Client will call back to schedule gem eval. potter documented in this encounter Plan of Treatment Not on file documented as of this encounter Visit Diagnoses Not on filedocumented in this encounter Care Teams Bulk Mail Technician Relationship Specialty Start Date End Date Leon Han PCP - General Family Practice 08/20/19 Alissa Desouza MD [address] [place] [id number] Assigned Heart and Vascular Provider 08/07/20 10/23/21 documented as of this encounter
--- OUTSIDE RECORDS SUMMARY | 2024-05-01 12:41 | XMS_ITS | Encounter Summary ---
Author Organization [place] Address [address] [place] [address]. [place] [address] Care Team Providers Care Personnel Analyst Name Role Phone Leon Han Primary Care Provider [phone] Encounter Details Date Type Department Care Team (Late st Contact Info) Description 01/29/2024 Medical Correspondence [facility] Mgmt [facility] [address] [place] [address] Scan, Non-Provider Social History Tobacco Use Types Packs/Day Years [...] on filedocumented in this encounter Care Teams Personnel Analyst Relationship Specialty Start Date End Date Leon Han PCP - General Family Practice 08/20/19 documented as of this encounter
== END 2024-05-01 12:36 | disposition home or self-care (01) ==
PROVIDERS: PCP Family Medicine; Visit Provider Family Medicine
DX: I10 Essential (primary) hypertension (principal); R53.83 Other fatigue; G89.4 Chronic pain syndrome; Z13.9 Encounter for screening, unspecified; R53.1 Weakness
CPT/HCPCS: 80048; 80076; 84443; 85025; 86140

== ENCOUNTER 2025-04-25 09:32 | Outpatient (CLI) | payer MEDICAID, SELFPAY | END 2025-04-25 09:33 | disposition home or self-care (01) | PROVIDERS: PCP Family Medicine; Visit Provider Family Medicine | DX: E55.9 Vitamin D deficiency, unspecified (principal); I12.9 Hypertensive chronic kidney disease with stage 1 through stage 4 chronic kidney disease, or unspecified chronic kidney disease; N18.32 Chronic kidney disease, stage 3b; R53.1 Weakness | CPT/HCPCS: 80048; 80061; 82306; 82728; 84443; 85025 ==

== ENCOUNTER 2025-05-01 13:59 | Outpatient (CLI) | payer MEDICAID, SELFPAY ==
--- NOTE | 2025-05-01 14:00 | CRLHL7_ITS ---
For Patients: As a result of the Century Cures Act, medical imaging exams and procedure reports are released immediately into your electronic medical record. You may view this report before your referring provider. If you have questions, please contact your health care provider. Indication: Pulmonary nodule Technique: Noncontrast CT chest Please note that all CT scans at this facility use dose modulation, iterative reconstruction, and/or weight-based dosing when appropriate to reduce radiation dose to as low as reasonably achievable. Comparison: 09/12/2018 CT, 04/07/2020 and 07/06/2021 x-rays Findings: Previously noted right lower lobe pulmonary nodule is no longer present. No new nodule. No infiltrate or edema. No effusion or pneumothorax. No adenopathy. Mild residual thymic tissue in the anterior mediastinum. Innumerable low-density and intermediate density renal cysts are again noted along with calcification in the upper poles. No fracture. Stable calcified right hilar lymph nodes. Impression: Previously noted right lower lobe nodule is no longer present. Please note that all CT scans at this facility use dose modulation, iterative reconstruction, and/or weight-based dosing when appropriate to reduce radiation dose to as low as reasonably achievable. Dictated by Calixto Miller MD @ 05/01/2025 3:35:13 PM (Electronically Signed)
== END 2025-05-01 14:00 | disposition home or self-care (01) ==
LOC: CT 14:00
PROVIDERS: PCP Family Medicine; Visit Provider Family Medicine
DX: R91.1 Solitary pulmonary nodule (principal)
CPT/HCPCS: 71250

== ENCOUNTER 2025-07-23 10:39 | Outpatient (CLI) | payer MEDICAID, SELFPAY | END 2025-07-23 10:40 | disposition home or self-care (01) | PROVIDERS: PCP Family Medicine; Visit Provider Family Medicine | DX: Z01.818 Encounter for other preprocedural examination (principal); N18.32 Chronic kidney disease, stage 3b | CPT/HCPCS: 80048; 85025 ==

== ENCOUNTER 2025-10-14 15:25 | Outpatient (CLI) | payer MEDICAID, SELFPAY | END 2025-10-14 15:26 | disposition home or self-care (01) | PROVIDERS: PCP Family Medicine; Visit Provider Family Medicine | DX: Z01.818 Encounter for other preprocedural examination (principal); I10 Essential (primary) hypertension | CPT/HCPCS: 80048; 85025 ==